=== PATIENT | male | born 1960 | race Caucasian/White ===

== ENCOUNTER 2016-11-05 16:29 | Inpatient (IN) | payer OTHER, MEDICARE ==
[~2016-11-05] VITALS: Ht 177.8 cm; Wt 90.7 kg
[~2016-11-05 16:29] MED LIST: ADVIL200 MG PO; ALPRAZOLAM2 M2 PO; CARISOPRODOL350 M1 PO; COLACE100 MG PO; DELTASONE20 MG PO; DEPAKOTE ER 25250 MG PO; DIVALPROEX SOD500 M2 PO; DOLOPHINE10 MG PO; ESCITALOPRAM OX10 MG PO; FLEXERIL10 MG PO; IBUPROFEN800 M1 PO; IBUPROFEN800 MG PO; KEFLEX500 MG PO; LYRICA75 M1 PO; METHADONE HCL10 M1 PO; MOBIC 15MG15 MG PO; MOTRIN 800MG T800 MG PO; MOTRIN600 MG PO; OXYCODONE HCL10 M2 PO; OXYCODONE HCL10 MG PO; OXYCODONE HCL5 M1 PO; OXYCODONE HYDRO10 M1 PO; OXYCODONE5 M1 PO; PERCOCET 325 MG1 TA2 PO; SOMA 350MG TAB350 MG PO; ULTRAM(MONOGRAP50 MG PO; XANAX2 M1 PO
--- NOTE | 2016-11-05 16:38 | NUR ---
Informed waiting has been performed.
--- NOTE | 2016-11-05 16:38 | NUR ---
TRIAGE: PT TO ER C/C "IT'S MAKING ME SUICIDAL. I'VE BEEN TO HOW MANY DOCTORS, NOBODY KNOWS WHAT IT IS. I'M JUST SICK OF IT!" HAS REDNESS AND PAIN BLE, ALSO COMPLAINS OF PAIN TO HEAD, NECK AND BACK. HAS HAD CHRONIC PAIN X MONTHS.
--- NOTE | 2016-11-05 16:49 | NUR ---
PATIENT AMBULATORY TO ROOM 13 AT THIS TIME. SECURITY AT BEDSIDE FOR WANDING.
--- NOTE | 2016-11-05 17:13 | ED PSYCHIATRIC COMPLAINT ---
History of Present Illness General Chief Complaint: Lower Extremity Problems Stated Complaint: SWELLING TO LOWER EXTREMITIES Source: patient, old records Exam Limitations: no limitations Vital Signs & Intake/Output Vital Signs & Intake/Output Vital Signs Date Time Temp Pulse Resp B/P Pulse O2 O2 Flow FiO2 Ox Delivery Rate 11/05 2320 95.5 69 16 128/77 11/05 1913 97.8 76 18 118/70 96 Room Air 11/05 1636 97.0 98 20 125/87 95 Room Air Allergies Coded Allergies: diphenhydramine (From BENADRYL) (HYPER PER PT SAYS IT FEELS LIKE BEGINNING OF A PANIC ATTACK 11/05/16) quetiapine (HYPERACTIVE, PER PT STATES HE FELT SUICIDAL 11/05/16) trazodone (WOKE UP FEELING DRUNK, HAD TO TAKE TO MUCH FOR SLEEP HELP 11/05/16) Reconcile Medications Alprazolam 2 MG TABLET 1 TAB PO 4 TIMES/DAY ANXIETY/PANIC ATTACKS (Reported) Carisoprodol 350 MG TABLET 1 TAB PO 4 TIMES/DAY MUSCLE SPASMS (Reported) Divalproex Sodium 500 MG TABLET.DR 1 TAB PO BID SEIZURES/PANIC ATTACKS ( Reported) Escitalopram Oxalate 10 MG TABLET 1 TAB PO DAILY MENTAL HEALTH (Reported) Ibuprofen 800 MG TABLET 1 TAB PO BID PAIN (Reported) Methadone Hydrochloride (Methadone HCl) 10 MG TABLET 1 TAB PO BID CHRONIC PAIN (Reported) Oxycodone HCl 10 MG TABLET 1 TAB PO 4 TIMES/DAY PAIN (Reported) Triage Note: TRIAGE: PT TO ER C/C "IT'S MAKING ME SUICIDAL. I'VE BEEN TO HOW MANY DOCTORS, NOBODY KNOWS WHAT IT IS. I'M JUST SICK OF IT!" HAS REDNESS AND PAIN BLE, ALSO COMPLAINS OF PAIN TO HEAD, NECK AND BACK. HAS HAD CHRONIC PAIN X MONTHS. Triage Nurses Notes Reviewed? yes HPI: 55-YEAR-OLD MALE WITH HISTORY OF POLYSUBSTANCE ABUSE, DEPRESSION, ANXIETY, CHRONIC PAIN, VASCULITIS, here with complaints of depression and suicidal thoughts. He states that these are stemming from his frustration with his chronic lower extremity rash and swelling. 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 He states his vasculitis is returning again over the last 3 days. This is causing him depression and anxiety and he wants to speak to a counselor about it. He has no fever or flulike illness he denies any drug or alcohol use. There is been no treatment thus far no modifying factors. (RIVER OMALLEY) Past History Travel History Traveled to [place] past 21 day No Medical History Any Pertinent Medical History? see below for history Neurological: delerium, seizure (also has some gait problems), TBI EENT: EYE SURGERY Cardiovascular: NONE Respiratory: NONE Gastrointestinal: pancreatitis Hepatic: hepatitis C Renal: NONE Musculoskeletal: chronic back pain, disk herniation, falls, fracture, BROKEN RIGHT FOOT hx skull and jaw fx's Psychiatric: alcohol dependence (in remission), anxiety, bipolar disease, chronic pain disorder, depression, opioid dependence (opioid pain management), substance abuse (hx alcohol and drug abuse), PANIC ATTACKS benzodiazepine abuse opiate pain management Endocrine: NONE Blood Disorders: NONE Cancer(s): NONE 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 History of MRSA: Yes History of VRE: No History of CDIFF: No Pneumonia Vaccine: 10/08/13 Influenza Vaccine: 08/17/16 Surgical History Surgical History: NECK, SKULL Psychosocial History Who do you live with Patient/Self Services at Home None What is your primary language Cameroonian Tobacco Use: Current Daily Use Daily Tobacco Use Amount/Type: => 5 Cigarettes daily ETOH Use: occasional use Illicit Drug Use: cocaine, heroin Family History Family History, If Any: No Known Family History. Hx Contributory? No (RIVER OMALLEY) Review of Systems Review of Systems Constitutional: Reports: see HPI. EENTM: Reports: no symptoms. Respiratory: Reports: no symptoms. Cardiovascular: Reports: no symptoms. GI: Reports: no symptoms. Genitourinary: Reports: no symptoms. Musculoskeletal: Reports: no symptoms. Skin: Reports: see HPI. Neurological/Psychological: Reports: see HPI. Hematologic/Endocrine: Reports: no symptoms. Immunologic/Allergic: Reports: no symptoms. All Other Systems: Reviewed and Negative (RIVER OMALLEY) Physical Exam Physical Exam General Appearance: well developed/nourished Neurological/Psychiatric: no motor/sensory deficits Comments: Well-developed well-nourished person in no acute distress HEENT: Normal EENT exam, extraocular motion intact, no nystagmus. Pupils equally round and reactive to light. Nose is atraumatic. External auditory canal and Tympanic membranes clear. Pharynx normal. No swelling or edema. Neck: Supple, no lymphadenopathy, normal range of motion without pain or tenderness Back: Nontender, no CVA tenderness. Full range of motion Cardiovascular: Regular rate and rhythms no murmurs, normal JVP Respiratory: Chest nontender. No respiratory distress. Breath sounds clear to auscultation bilaterally Abdomen: Soft, nontender nondistended, no appreciable organomegaly. Normal bowel sounds. No ascites Extremity: No edema, no calf tenderness to palpation, normal and equal pulses. Neuro: Alert oriented x3, motor sensory normal, cranial nerves II through XII grossly intact. Skin: Vasculitis, maculopapular rash to the bilateral lower extremities extending from the feet to the mid knee region bilaterally, tender to palpation mild swelling., skin is warm and dry. Psych: Depressed, memory and judgment is normal. Medical Clearance Statement * * no evidence of toxic ingestion SAD PERSONS SAD PERSONS Response Value Male Sex? yes 1 Age <19 or >45 years? yes 1 Depression/Hopelessness? yes 2 Previous Attempts/Psych Care yes 1 Single//? yes 1 Social Support? has no support 1 Stated Future Intent? yes 2 Total 9 SAD PERSONS Done? yes (JOSÉ SWANSON,RIVER) Progress Differential Diagnosis: dementia, drug intoxication, drug overdose, drug withdrawal, electrolyte abnormality, encephalitis, hypoglycemia, hypothyroidism, IC hem/mass/tumor, meningitis Plan of Care: Orders Procedure Date/time Status Regular Diet 11/06 B Active Patient Data - inpatient psych 11/05 2220 Active Admit to inpatient psych 11/05 2220 Active Vital Signs 11/05 2148 Active Inpt Psych Teach/Educate 11/05 2147 Active Nutritional Intake, Monitor 11/05 2147 Active Inpt Psych Auricular Acupunctu 11/05 2147 Active Admit to inpatient psych 11/05 2040 Active WESTERGREN SED RATE 11/05 1722 Complete DEPAKOTE LEVEL 11/05 1722 Complete ED CRISIS PSYCH CONSULT 11/05 1716 Active URINE DRUG SCREEN FOR ER ONLY 11/05 1704 Complete ETHANOL 11/05 1704 Complete COMPREHENSIVE METABOLIC PANEL 11/05 1704 Complete CBC WITHOUT DIFFERENTIAL 11/05 1704 Complete Intake & Output 11/05 1657 Complete Lab Add-on Test 11/05 UNK Active CIWA 11/05 UNK Active Activity/Ambulation 11/05 UNK Active Current Medications Sig/Phuong Start time Last Medication Dose Stop Time Status Admin Escitalopram Oxalate 10 MG DAILY 11/06 1000 UNVr (Lexapro) Methadone HCl 10 MG BID 11/06 1000 UNVr (Dolophine) Lorazepam 2 MG Q2 HRS NEEDED PRN 11/05 2229 UNVr (Ativan) Lorazepam 1 MG Q2 HRS NEEDED PRN 11/05 2229 UNVr (Ativan) Divalproex Sodium 500 MG BID 11/05 2223 UNVr (Depakote) Laboratory Tests 11/05/16 1822: Urine Opiates Screen > 4000.00 H, Methadone Screen 390 H, Barbiturate Screen 75, Ur Phencyclidine Scrn < 6.00, Amphetamines Screen < 100, U Benzodiazepines Scrn 113, Urine Cocaine Screen > 1000 H, Urine Cannabis Screen < 5.00 11/05/16 1722: Anion Gap 16, Estimated GFR > 60, BUN/Creatinine Ratio 15.6, Glucose 109 H, Calcium 8.8, Total Bilirubin 0.8, AST 80 H, ALT 81 H, Alkaline Phosphatase 67, Total Protein 7.5, Albumin 3.8, Globulin 3.7, Albumin/Globulin Ratio 1.0 L, CBC w Diff NO MAN DIFF REQ, RBC 4.10 L, MCV 88.4, MCH 29.5, RDW 15.5 H, MPV 8.2, Gran % 74.0, Lymphocytes % 16.0 L, Monocytes % 8.6, Eosinophils % 1.0, Basophils % 0.4, Absolute Granulocytes 3.9, Absolute Lymphocytes 0.8 L, Absolute Monocytes 0.5, Absolute Eosinophils 0.1, Absolute Basophils 0, PUBS MCHC 33.3, ESR Westergren 45 H, Valproic Acid < 10.0 L, Serum Alcohol < 10.0 11/05/16 1713: ESR Westergren Cancelled Comments: Patient is due for his methadone now, he takes 20 mg twice a day, did not have his evening dose yet, is also asking for something else for pain and his legs and I ordered ibuprofen 600 mg for him. We will obtain labs and crisis evaluation pt seen and evaluated by continuous mining machine operator, will be admitted due to bipolar disorder and depression. (RIVER OMALLEY) Departure Departure Disposition: STILL A PATIENT Condition: Stable Clinical Impression Primary Impression: Bipolar disorder, unspecified Qualifiers: Active/Remission status: currently active Current bipolar episode type: depressed Current episode severity: severe Psychotic features: without psychotic features Qualified Code: F31.4 - Bipolar disorder, current episode depressed, severe, without psychotic features Secondary Impressions: Chronic pain Qualifiers: Chronic pain type: other chronic pain Qualified Code: G89.29 - Other chronic pain Depression Qualifiers: Depression Type: major depressive disorder Major depression recurrence: recurrent Active/Remission status: currently active Major depression episode severity: severe Psychotic features: without psychotic features Qualified Code: F33.2 - Major depressive disorder, recurrent severe without psychotic features Vasculitis Referrals: PATIENT HAS NO PRIMARY CARE DR (PCP/Family) Departure Forms: Customer Survey General Discharge Information Psych Admission Note Psychiatric Admission: I have seen and evaluated RIVER GONGORA. I have also reviewed all the pertinent lab results and diagnostic results. RIVER GONGORA will be admitted to our inpatient Psychiatric unit for treatment and care. (RIVER OMALLEY) PA/UPSETTER HELPER Co-Sign Statement Statement: ED Attending supervision documentation- x I saw and evaluated the patient. I have also reviewed all the pertinent lab results and diagnostic results. I agree with the findings and the plan of care as documented in the PA's/UPSETTER HELPER's documentation. [] I have reviewed the ED Record and agree with the PA's/UPSETTER HELPER's documentation. [] Additions or exceptions (if any) to the PAs/UPSETTER HELPER's note and plan are summarized below: [] (ALEJANDRA FUCHS,HELEN)
--- NOTE | 2016-11-05 17:30 | NUR ---
PT MEDICATED PER EMAR, SITTING QUIETLY WATCHING TV IN ROOM 13. BLOOD SENT. PT INFORMED OF NEED FOR URINE SAMPLE PRIOR TO CRISIS EVAL AND GIVEN URINE CUP, PT STATING HE CANNOT PROVIDE A SAMPLE, WATER PITCHER PROVIDED. PT VOICING NO CONCERNS, SITTER AT BEDSIDE.
[2016-11-05 17:35] LABS: ABSOLUTE BASOPHIL COUNT 0 /CUMM (0.0-0.2); ABSOLUTE EOSINOPHIL COUNT 0.1 /CUMM (0.0-0.7); ABSOLUTE GRANULOCYTE CT 3.9 /CUMM (1.4-6.5); ABSOLUTE LYMPH COUNT 0.8 /CUMM (1.2-3.4); ABSOLUTE MONOCYTE COUNT 0.5 /CUMM (0.10-0.60); BASOPHIL % 0.4 % (0.0-2.0); HEMATOCRIT 36.3 % (42-52); MEAN CORPUSCULAR HGB 29.5 PG (27.0-31.0); MEAN CORPUSCULAR HGB CONC 33.3 G/DL (33.0-37.0); MEAN CORPUSCULAR VOLUME 88.4 FL (80.0-94.0); MEAN PLATELET VOLUME 8.2 FL (7.4-10.4); PLATELET COUNT 136 /CUMM (130-400); RBC DISTRIBUTION WIDTH 15.5 % (11.5-14.5); WHITE BLOOD CELL COUNT 5.3 /CUMM (4.8-10.8)
--- NOTE | 2016-11-05 18:49 | NUR ---
PATIENT MEDICATED WITH 2MG PO XANAX AT THIS TIME.
--- NOTE | 2016-11-05 19:06 | ED PSY CRISIS COLLATERAL NOTE ---
Collateral Note Collateral Note Family/Inform/[place] Contacts: Crisis attempted to reach pt's friend Juve Webster listed on facesheet at however the message stated the [employer] customer is not available to call back and try again. There was no option to leave a message.
--- NOTE | 2016-11-05 19:14 | NUR ---
SITTING QUIETLY STATES FEELS ALITTLE BETTER CALM CO-OPERATIVE NAD
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
[2016-11-05 23:20] VITALS: BP 128/77
--- NOTE | 2016-11-05 23:31 | NUR ---
PT ADMITTED TO [facility] FOR EXACERBATION OF DEPRESSION WITH SI. DURING INTERVIEW, PT REPORTED THAT HE STILL HAD SI, "BUT I WON'T DO ANYTHING HERE." "YEAH. I WANT HELP." "I SIGNED IN VOLUNTARILY." PT AGREED TO REPORT TO STAFF IF/WHEN THOUGHTS BECOME OVERWHELMING OR HE CONSIDERS A PLAN OF SELF HARM. PT PSYCH HX INCLUDES POLYSUBTANCE ABUSE/DEPENDENCE. PT REPORTED HE LAST USED "COCAINE" AND "SNIFFED HEROIN" YESTERDAY (11/04). PT REPORTED FEELING DEPRESSED, ANXIOUS, AND IRRITABLE. HE ADMITTED TO SOME MOOD LABILITY. HE DENIED HI AND ALL HALLUCINATIONS. PT PSYCH HX INCLUDES BIPOLAR DO AND POLYSUBSTANCE ABUSE/DEPENDENCE. PT C/O CHRONIC PAIN OF "BACK AND NECK." "10" ON SCALE OF 1-10. SPOKE WITH DR DAVIS, WHO SAID SHE WOULD ORDER PT'S MEDICATIONS BASED ON HOW PT SAID HE TAKES THEM AT HOME AND WOULD DISCUSS MED REGIMEN WITH PT TOMORROW. DR DAVSI HAS PLAN TO TAPER PT OFF XANAX. PT MED REGIMEN ALSO DISCUSSED WITH DR ALCALA WHO COMPLETED H&P. VSS.
[2016-11-06] VITALS (8 sets, daily range): BP systolic 118–135; BP diastolic 66–81
--- NOTE | 2016-11-06 00:03 | History & Physical ---
General Information and HPI MD Statement: I have seen and personally examined RIVER GONGORA and documented this H&P. The patient is a 55 year old M who presented with a patient stated chief complaint of [Depression, suicidal ideation]. Source of Information: patient, old records Exam Limitations: no limitations History of Present Illness: 55 yo M with h/o untreated Hep C, chronic back pain s/p multiple surgeries, bipolar disorder, seizure disorder is admitted to Inpatient psychiatry for depression and suicidal ideation which he attributes to his unrelenting chronic pain. He has been admitted multiple times in the past year for the same reason. Please refer to Psych notes for details. Patient states he was admitted to [facility] in Sep 2016 after he had a seizure episode while at the airport awaiting a flight to [place]. Apparently, he was intubated for respiratory failure. He follows Dr. Pena for pain management at [place] and gets his methadone from him. He reports being diagnosed with Vasculitis by many doctors but is not undergoing any treatment. He currently denies chest pain, dyspnea, palpitations, nausea, vomiting, abdominal pain, diarrhea or urinary symptoms. Allergies/Medications Allergies: Coded Allergies: diphenhydramine (From BENADRYL) (HYPER PER PT SAYS IT FEELS LIKE BEGINNING OF A PANIC ATTACK 11/05/16) quetiapine (HYPERACTIVE, PER PT STATES HE FELT SUICIDAL 11/05/16) trazodone (WOKE UP FEELING DRUNK, HAD TO TAKE TO MUCH FOR SLEEP HELP 11/05/16) Home Med list Alprazolam 2 MG TABLET 1 TAB PO 4 TIMES/DAY ANXIETY/PANIC ATTACKS (Reported) Carisoprodol 350 MG TABLET 1 TAB PO 4 TIMES/DAY MUSCLE SPASMS (Reported) Divalproex Sodium 500 MG TABLET.DR 1 TAB PO BID SEIZURES/PANIC ATTACKS ( Reported) Escitalopram Oxalate 10 MG TABLET 1 TAB PO DAILY MENTAL HEALTH (Reported) Ibuprofen 800 MG TABLET 1 TAB PO BID PAIN (Reported) Methadone Hydrochloride (Methadone HCl) 10 MG TABLET 1 TAB PO BID CHRONIC PAIN (Reported) Oxycodone HCl 10 MG TABLET 1 TAB PO 4 TIMES/DAY PAIN (Reported) Compliance With Home Meds: POOR Past History Travel History Traveled to [place] past 21 day No Medical History Neurological: migraine, seizure (also has some gait problems), SCIATICA TBI EENT: EYE SURGERY Cardiovascular: NONE Respiratory: NONE Gastrointestinal: pancreatitis Hepatic: hepatitis C Renal: NONE Musculoskeletal: chronic back pain, disk herniation, falls, fracture, BROKEN RIGHT FOOT hx skull and jaw fx's Psychiatric: alcohol dependence (in remission), anxiety, bipolar disease, chronic pain disorder, depression, opioid dependence (opioid pain management), substance abuse (hx alcohol and drug abuse), PANIC ATTACKS benzodiazepine abuse opiate pain management Endocrine: NONE Blood Disorders: NONE Cancer(s): NONE 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 History of MRSA: Yes History of VRE: No History of CDIFF: No Isolation History: Standard Pneumonia Vaccine: 10/08/13 Influenza Vaccine: 08/17/16 Surgical History Surgical History: NECK, SKULL Past Family/Social History Family History Relations & Conditions if any No Known Family History. Psychosocial History Where do you live? Home Who Do You Live With? self Services at Home: None Primary Language: Argentine Smoking Status: Current Everyday Smoker ETOH Use: occasional use Illicit Drug Use: cocaine, heroin Functional Ability ADLs Independent: dressing, eating, toileting, bathing. Ambulation: independent, walker IADLs Independent: shopping, housework, finances, food prep, telephone, transportation , medication admin. Review of Systems Review of Systems Constitutional: Denies: chills, fever, weakness. EENTM: Reports: no symptoms. Cardiovascular: Denies: chest pain, orthopena, palpitations. Respiratory: Denies: cough, short of breath, sputum production, wheezing. GI: Denies: abdominal pain, diarrhea, nausea, vomiting. Genitourinary: Reports: no symptoms. Musculoskeletal: Reports: no symptoms. Neurological/Psychological: Reports: see HPI. All Other Systems: Reviewed and Negative Exam & Diagnostic Data Last 24 Hrs of Vital Signs/I&O Vital Signs Date Time Temp Pulse Resp B/P Pulse O2 O2 Flow FiO2 Ox Delivery Rate 11/06 1950 96.7 76 122/66 11/06 1946 96.7 76 122/66 11/06 1606 68 118/74 11/06 1604 68 118/74 11/06 1218 68 135/70 11/06 1205 68 135/70 11/06 0757 96.6 64 130/81 11/06 0755 96.6 64 130/81 11/05 2320 95.5 69 16 128/77 Intake & Output 11/06 1600 11/06 0800 11/06 0000 Intake Total Output Total Balance Patient 200 lb Weight Physical Exam General Appearance Alert, Oriented X3, Cooperative, No Acute Distress Skin Rash noted to lower extremities consistent with vasculitis. HEENT EOMI, Mucous Membr. moist/pink Neck Supple Cardiovascular Regular Rate, Normal S1, Normal S2, No Murmurs Lungs Clear to Auscultation, Normal Air Movement Abdomen Normal Bowel Sounds, Soft, No Tenderness Neurological Exam Findings: Normal Speech, Normal Tone, Sensation Intact, Cranial Nerves 3 -12 NL, Reflexes 2+ Cranial Nerves II through XII: Grossly intact. Extremities No Edema, Normal Pulses Last 24 Hrs of Labs/Romero: Laboratory Tests 11/05 11/05 1822 1722 Chemistry Sodium (137 - 145 mmol/L) 144 Potassium (3.5 - 5.1 mmol/L) 4.2 Chloride (98 - 107 mmol/L) 103 Carbon Dioxide (22 - 30 mmol/L) 25 Anion Gap (5 - 16) 16 BUN (9 - 20 mg/dL) 14 Creatinine (0.7 - 1.2 mg/dL) 0.9 Estimated GFR (>60 ml/min) > 60 BUN/Creatinine Ratio (7 - 25 %) 15.6 Glucose (65 - 99 mg/dL) 109 H Calcium (8.4 - 10.2 mg/dL) 8.8 Total Bilirubin (0.2 - 1.3 mg/dL) 0.8 AST (17 - 59 U/L) 80 H ALT (21 - 72 U/L) 81 H Alkaline Phosphatase (< 127 U/L) 67 Total Protein (6.3 - 8.2 g/dL) 7.5 Albumin (3.5 - 5.0 g/dL) 3.8 Globulin (1.9 - 4.2 gm/dL) 3.7 Albumin/Globulin Ratio (1.1 - 2.2 %) 1.0 L Hematology CBC w Diff NO MAN DIFF REQ WBC (4.8 - 10.8 /CUMM) 5.3 RBC (4.70 - 6.10 /CUMM) 4.10 L Hgb (14.0 - 18.0 G/DL) 12.1 L Hct (42 - 52 %) 36.3 L MCV (80.0 - 94.0 FL) 88.4 MCH (27.0 - 31.0 PG) 29.5 RDW (11.5 - 14.5 %) 15.5 H Plt Count (130 - 400 /CUMM) 136 MPV (7.4 - 10.4 FL) 8.2 Gran % (42.2 - 75.2 %) 74.0 Lymphocytes % (20.5 - 51.1 %) 16.0 L Monocytes % (1.7 - 9.3 %) 8.6 Eosinophils % (0 - 5 %) 1.0 Basophils % (0.0 - 2.0 %) 0.4 Absolute Granulocytes (1.4 - 6.5 /CUMM) 3.9 Absolute Lymphocytes (1.2 - 3.4 /CUMM) 0.8 L Absolute Monocytes (0.10 - 0.60 /CUMM) 0.5 Absolute Eosinophils (0.0 - 0.7 /CUMM) 0.1 Absolute Basophils (0.0 - 0.2 /CUMM) 0 PUBS MCHC (33.0 - 37.0 G/DL) 33.3 ESR Westergren (0 - 10 MM) 45 H Toxicology Urine Opiates Screen (>2000 NG/ML) > 4000.00 H Methadone Screen (>300 NG/ML) 390 H Barbiturate Screen (>200 NG/ML) 75 Valproic Acid (50 - 120 ug/mL) < 10.0 L Ur Phencyclidine Scrn (>25 NG/ML) < 6.00 Amphetamines Screen (>1000 NG/ML) < 100 U Benzodiazepines Scrn (>200 NG/ML) 113 Urine Cocaine Screen (>300 NG/ML) > 1000 H Urine Cannabis Screen (>50 NG/ML) < 5.00 Serum Alcohol (<10 MG/DL) < 10.0 11/05 1713 Hematology ESR Westergren Cancelled Diagnostic Data EKG Results -- CXR Results -- Assessment/Plan Assessment: 55 yo M with h/o Hep C, chronic pain syndrome, is admitted to Inpatient psychiatry for depression and suicidal ideation. 1. Plan per Psych team for management of depression, drug abuse, bipolar disorder and SI. 2. Smoking cessation counseling, nicotine patch. 3. Vasculitis. Patient needs to follow up with Dermatology as outpatient. 4. Transaminitis likely related to his previous Hep C infection. 5. Seizure disorder. Continue depakote. 6. Chronic back pain. Methadone maintenance. DVT prophylaxis - low risk, early ambulation. As Ranked By This Provider Problem List: 1. CHRONIC PAIN 2. Chronic hepatitis C 3. Suicidal ideation 4. Major depression, recurrent Miscellaneous Miscellaneous Documentation Attending Case Discussed With: CASH FUCHS,ROBERTO CARLOS Primary Care Physician: PATIENT HAS NO PRIMARY CARE DR Patient sees these Specialists -- Level of Patient Care: CATIE Hansen Attending Review Statement Attending Statement Attending MD Statement: examined this patient
--- NOTE | 2016-11-06 00:03 | Admission Certification ---
Admission Certification Certification Statement - As attending physician, I certify that at the time of - admission, based on clinical presentation, severity of - symptoms, need for further diagnostic testing and - therapeutic interventions, and risk of adverse outcomes - without in-hospital treatment, in my clinical assessment, - this patient requires an acute hospital stay for a minimum - of two nights or longer. I have also considered psychsocial - factors such as support system, advanced age, financial - issues, cognitive issues, and failed out-patient treatments, - past re-admission history, safety of patient, and lack of - compliance as applicable. Specific rationale supporting this admission is: Depression and suicidal ideation.
--- NOTE | 2016-11-06 06:53 | NUR ---
PATIENT SLEPT 1/2 OF NIGHT OR SO, REPOTING PAIN; PRN OXYCODONE GIVEN AT 2330 AND 0530.
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
--- NOTE | 2016-11-06 13:50 | NUR ---
PT IS COMPLIANT AND COOPERATIVE. MOOD IS STABLE WITH A CONSTRICTED AFFECT. PT DENIES SI AT THIS TIME, C/O CHRONIC PAIN. PT GAIT IS STEADY WITHOUT ASSISTANCE FROM WALKER. PT IS PRESENT IN THE COMMUNITY AND INTERACTING WELL WITH PEERS AND STAFF. PT IS ATTENDING GROUPS. VITALS ARE STABLE, APPETITE IS GOOD.
--- NOTE | 2016-11-06 20:52 | NUR ---
Pt is out in the unit c/o pain asking for more meds, compliant and cooperative no behavioral issues noted during the day. Vital signs are stable no scoring on his ciwa. Will continue to monitor the pt overnight.
[2016-11-07] VITALS (8 sets, daily range): BP systolic 124–143; BP diastolic 78–88
--- NOTE | 2016-11-07 11:44 | SOCIAL WORKER TX PLAN PSYCH ---
Treatment Plan - Please Document: - Evidence that there is ongoing collaboration between - the patient and the interdisciplinary team, - including the patient's active participation and - responsibility for engaging in the treatment regimen, - and that the treatment plan is individualized and - relevant to the patient's conditions. - Treatment plan should reflect documentation indicating - that all active therapeutic efforts are included. Strengths/Capabilities: pt is able to verbalize his living enviroment is not the best as he has access to cocaine so it's easy to use. Pt is able to verbalize needing help. Physical Limitations (Interventions): Chronic back and neck pain Patient Identified Trmt Goals: "To stop these thoughts I am having." Discharge Plan: OP Problem/Goals #1 Problem #1: suicidal ideation Goal (Short Term): Today I will attend 2 groups Today I will identify 2 stressors Today I will identify 2 positive supports Today I will work on recognizing 3 emotions I am feeling Goal (Residential): Be free of suicidal thoughts/attempts Develop 3 coping skills to deal with depression Identify 3 positive support systems to call in crisis Develop a crisis plan with 3 [place] people Identify 2 positive traits per week about myself Identify 2 things I have to look forward to Identify 2 positive people in my life and 1 thing I appreciate about them Interventions: Learn ways to manage depressive symptoms accordingly and identify positive supports to manage life stressors and mood fluctuations. Modalities: Encourage groups, education on depression, provide CBT treatment, family meeting. Problem/Goals #2 Problem #2: homicidal ideation Goal (Short Term): Today I will attend 2 groups Today I will identify 2 stressors Today I will identify 2 positive supports Today I will work on recognizing 3 emotions I am feeling Goal (Residential): Be free of homicidal thoughts/attempts Develop 3 coping skills to deal with my anger Identify 3 positive support systems to call in crisis Develop a crisis plan with 3 [place] people Identify 2 positive traits per week about myself Identify 2 things I have to look forward to Identify 3 negative consequences of acting on my thoughts Interventions: Learn ways to manage depressive symptoms accordingly and identify positive supports to manage life stressors and mood fluctuations. Modalities: Encourage groups, education on depression, provide CBT treatment, family meeting. Problem/Goals #3 Problem #3: stimulant abuse Goal (Short Term): Be free of drug/alcohol use/abuse Avoid people, places and situations where temptation might be overwhelming Learn five triggers for alcohol & drug use Goal (Residential): 1) Refrain from all substnace use 2) Identify 3 triggers for use 3) Identify 3 sober supports 4) Identify 3 coping skills Interventions: Learn ways to manage cravings to use substances accordingly and identify coping skills to prevent relapse from occurring due to anxious/depressed feelings. Modalities: Encourage groups, education on addiction, provide CBT treatment, family meeting. DSM5/PS Stressors/Medical Prob Diagnosis' (DSM 5, Stressors, Medical): F31.9 Unspecified Bipolar Disorder, MRE Depressed F14.20 Cocaine Use Disorder, Severe F11.20 Opiod Use Disorder, on maintance therapy F13.20 Sedative, Hypnotic or Anxiolytic- Related Disorder, Severe F17.200 Tobacco- Use Disorder, Severe Chronic Pain Disorder Hepatitis C 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 Treatment Team - Responsibilities of members of the treatment team include: - Medication Management- MD or LAUNDRY SUPERINTENDENT - Medication Administration and Monitoring- Nurse - Group Therapy- Occupational Therapist - 1:1 Therapy,Disch Planning,family involvement-Solar Photovoltaic Designer
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
--- NOTE | 2016-11-07 14:27 | NUR ---
Pt was visible in the milieu today. he attended planning meeting, and the goal was made "to open up about his treatment". Pt shared he has come here too much, and is not honest with the social worker aide about whats going on. This time he wants to be more open about his treatment. Pt refused to eat his lunch after being blamed for an argument with another resident. Pt and resident made amends but pt still refuses to eat. Pt has been in some groups but not all of them today. According to the other MHW on shift, Pt had thoughts of harm this morning. It was reported by the other MHW, and shared with the charge nurse.
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
--- NOTE | 2016-11-07 22:00 | NUR ---
PT IS VISIBLE ON UNIT, INTERACTING WITH PEERS AND STAFF. PT ATTENDED WRAP UP MEETING AND PARTICIPATED. PT COMPLAINING OF CONSTANT PAIN. PT ALSO REPORTED SI BUT DENIED ANY PLAN AND/OR INTENT TO HARM SELF WHILE ON UNIT. PT HAS A STABLE MOOD AND FULL RANGE AFFECT.
[2016-11-08] VITALS (8 sets, daily range): BP systolic 134–147; BP diastolic 82–95
--- NOTE | 2016-11-08 05:27 | NUR ---
AWAKE ON AND OFF DURING THE SHIFT C/O PAIN MED WITH ROXICODONE AND IBUPROFEN ORDERED.
--- NOTE | 2016-11-08 11:52 | SOCIAL WORKER PROG NOTE PSYCH ---
Social Work Progress Note Progress Note Patient continues to endorse +SI today. He denies HI at present and reports only thoughts about hurting himself but no plan or intent while he is in the hospital. Patient has been attending groups on the unit and contated probation today to inform his PO that he was admitted to the hospital. He signed THEODORA for PO and I sent letter. Patient continues to report his desire to attend AA meetings post discharge from the hospital and plans to ask at this evenings AA for help in the community to get to and from meetings. Patient continues to express his desire for sobriety and build a positive support network in the community.
--- NOTE | 2016-11-08 13:30 | NUR ---
PT IS OUT IN COMMUNITY INTERACTING WITH STAFF AND PEERS. PT IS VERY SOICAL AT NURSES STATION CHATTING WITH STAFF. PT MOOD IS STABLE WTIH A FULL RANGE AFFECT. PT IS ACTIVE IN GROUPS. PT DENIES SI THOUGHTS AT THIS TIME. NO COMPLIANTS OFFERED
--- NOTE | 2016-11-08 18:45 | CP SOUTH PROGRESS NOTE PSYCH ---
Psych (Inpt) Progress Note Progress Note Progress Note: I discussed this patient's progress to date, current mental status, treatment process in the context of the treatment plan, and discharge planning with staff/ team in the daily morning inpatient team meeting. I also met with the patient myself in individual session. A total of 25 minutes was spent with the patient with more than 50% spent in counseling and/or coordination of care. SUBJECTIVE: " I'm a little suicidal. I know I'm not going to do it today." OBJECTIVE: Current Medications Sig/Phuong Start time Last Medication Dose Route Stop Time Status Admin Alprazolam 2 MG 4 TIMES/DAY 11/05 2223 AC 11/08 PO 11/12 222 1753 Carisoprodol 350 MG 4 TIMES/DAY 11/05 PO 1753 Divalproex Sodium 500 MG 0800,11/07 PO 0747 Escitalopram Oxalate 20 MG 0800 11/08 0800 AC 11/08 PO 0746 Ibuprofen 600 MG Q8P PRN 11/06 1330 AC 11/08 PO 1614 Lorazepam 2 MG Q2 HRS NEEDED PRN 11/05 2230 AC PO Lorazepam 1 MG Q2 HRS NEEDED PRN 11/05 2230 AC PO Methadone HCl 10 MG 0800,11/07 PO 0747 Nicotine 21 MG DAILY 11/06 1049 11/08 TOP 0746 Oxycodone HCl 10 MG Q6 PRN 11/06 1319 AC 11/08 PO 1451 Vital Signs Date Time Temp Pulse Resp B/P Pulse O2 O2 Flow FiO2 Ox Delivery Rate 11/08 1629 64 143/83 11/08 1600 64 143/83 11/08 1223 59 147/82 11/08 1211 59 142/82 11/08 0740 96.5 68 141/95 11/08 0737 96.5 68 141/95 11/07 1953 97.2 85 143/88 11/07 1950 97.2 85 143/ ASSESSMENT: Patient presents as calm and cooperative. States he is worried about his probation, as he has missed an appointment. States he will call PO today. States he needs to find a new pain mgmt doctor. States he has an appointment to see psychiatrist Dr. Busby next Monday at 9am. Tolerating his medications well, to good effect, without complaint. He has been out in the community. Depression: /; Anxiety: / (with 10 the worst.) Denies homicidal ideation, auditory hallucinations, visual hallucinations, paranoid ideation. Contracts for safety while on the unit. Sleep was OK last night "I slept for three hours straight, which is good for me. " Appetite is low. Speech is well articulated, goal-directed, average in rate, volume and tone. The patient understands the risks/benefits/side effects of the medication and is agreeable to continue taking them. PLAN: Depakote level tomorrow. Continue with current management as patient is improving. Continue to provide support and encouragement.
--- NOTE | 2016-11-08 22:52 | NUR ---
PT IS VISIBLE ON UNIT, SOCIALIZING WITH PEERS. PT IS COMPLAINING OF A LOT OF PAIN. PT GROWS IRRTIABLE WHEN REQUESTS ARE NOT TENDED TO RIGHT AWAY AND IS MED SEEKING. ATTENDED WRAP UP AND WAS PASSIVE. PT HAS A IRRITABLE MOOD AND AFFECT.
[2016-11-09] VITALS (8 sets, daily range): BP systolic 134–141; BP diastolic 78–94
--- NOTE | 2016-11-09 00:46 | NUR ---
2000 PT. C/O OF RASH LOCATED ON BACK BILATERAL FLANK AREAS, LEGS, AND FEW AREAS ON STOMACH. REPORTED TO DR. CHINCHILLA AND WAS ASSESSED. AWAITING ORDERS.
--- NOTE | 2016-11-09 00:48 | Event Note ---
Event Note Event Note: I was asked to take a look at Mr. Granados's rash on b/l lower extremities and back. 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 He never underwent any treatment. I evaluated him, he c/o some itching and pain. He kept asking for the soma and oxycodone to be given at the same time to help with pain. The rash on his lower back appears more erythematous ?irritated, but no weeping lesions. I have prescribed triamcinolone topical cream for now.
--- NOTE | 2016-11-09 00:49 | NUR ---
EMMETT CHATTERJEE ORDERED AND APPLIED.
--- NOTE | 2016-11-09 04:59 | NUR ---
SLEPT ON AND OFF AWAKE @0130 requesting ibuprofen for h/a med as ordered then sat in lounge. 0300 requesting roxicodone for pain back and legs and med. 0400 sleeping soundly.
--- NOTE | 2016-11-09 13:19 | PN- Att Addend ---
Attending Addendum Attending Brief Note I was called to see the patient as he was having a rash on his body. Last night he was seen by the hospitalist and Kenalog was prescribed. Patient claims that that made it worse. Reportedly he has been worked up in the past and had a skin biopsy done at [facility]. Vital Signs Date Time Temp Pulse Resp B/P Pulse O2 O2 Flow FiO2 Ox Delivery Rate 11/09 1230 61 136/78 11/09 1227 61 136/78 11/09 0754 62 141/94 11/09 0746 96.8 62 141/94 11/08 1941 97.2 95 134/82 11/08 1938 97.2 95 134/82 11/08 1629 64 143/83 11/08 1600 64 143/83 on exam; there is maculopapular rash on b/l lwer extremities and also lower back. It is painful according to the patient. Laboratory Tests 11/09 0622 Toxicology Valproic Acid (50 - 120 ug/mL) 56.1 A/p; 55-year-old male with reportedly vasculitic rash as he had said that in the past he was diagnosed with a vasculitic rash. I discontinued his Kenalog as he reports worsening of the rash. Would recommend getting the reports from the [facility] about his skin biopsy. Patient will need to see a team leader/research psychologist.
--- NOTE | 2016-11-09 14:49 | NUR ---
PT IS STABLE WITH CONSTRICTED AND IRRITABLE AFFECT. PT OFTEN WANDERS THE UNIT AND IS VERY SOMATIC COMPLAINING OF "UNBEARABLE PAIN". PT FEELS THAT [facility] DOES NOT "UNDERSTAND HOW TO PROPERLY MEDICATE ME". PT IS ATTENDING GROUPS AND CAN BE APPROPRIATE AT TIMES. DOES NOT REQUIRE MUCH REDIRECTION BUT PINES FOR ATTENTION FROM STAFF AND OFTEN MALINGERS AROUND NURSES STATION. VS ARE STABLE AND DENIES ANY SI/HI TO THIS MHW.
--- NOTE | 2016-11-09 14:50 | CP SOUTH PROGRESS NOTE PSYCH ---
Psych (Inpt) Progress Note Progress Note Progress Note: I discussed this patient's progress to date, current mental status, treatment process in the context of the treatment plan, and discharge planning with staff/ team in the daily morning inpatient team meeting. I also met with the patient myself in individual session. A total of 25 minutes was spent with the patient with more than 50% spent in counseling and/or coordination of care. SUBJECTIVE: "I'm trying to slow my role. I'm still depressed, I'm in a bad mood." OBJECTIVE: Current Medications Sig/Phuong Start time Last Medication Dose Route Stop Time Status Admin Alprazolam 1.5 MG 0800,11/10 08 AC PO 11/11 220 Alprazolam 2 MG 0800,11/09 220 AC PO 11/09 220 Alprazolam 1.5 MG 1300,11/09 1300 AC 11/09 PO 11/10 1701 1401 Alprazolam 2 MG 4 TIMES/DAY 11/05 2224 DC 11/09 PO 11/12 2223 0739 Carisoprodol 350 MG 4 TIMES/DAY 11/05 2224 AC 11/09 PO 1401 Divalproex Sodium 500 MG 0800,11/07 AC 11/09 PO 0736 Escitalopram Oxalate 20 MG 0800 11/08 0800 AC 11/09 PO 0736 Ibuprofen 600 MG .STK-MED ONE 11/09 0142 DC PO 11/09 0143 Ibuprofen 600 MG .STK-MED ONE 11/08 1608 DC PO 11/08 1609 Ibuprofen 600 MG Q8P PRN 11/06 1330 AC 11/09 PO 1019 Lorazepam 2 MG Q2 HRS NEEDED PRN 11/05 2230 AC PO Lorazepam 1 MG Q2 HRS NEEDED PRN 11/05 2230 AC PO Methadone HCl 10 MG 0800,11/07 AC 11/09 PO 0740 Nicotine 21 MG DAILY 11/06 1049 AC 11/09 TOP 1011 Oxycodone HCl 10 MG Q6 PRN 11/06 1319 AC 11/09 PO 0905 Triamcinolone 1 SAMSON BID 11/08 2305 DC 11/09 Acetonide TOP 1011 Laboratory Tests 11/09 0622 Toxicology Valproic Acid (50 - 120 ug/mL) 56.1 Vital Signs Date Time Temp Pulse Resp B/P Pulse O2 O2 Flow FiO2 Ox Delivery Rate 11/09 1230 61 136/78 11/09 1227 61 136/78 11/09 0754 62 141/94 11/09 0746 96.8 62 141/94 11/08 1941 97.2 95 134/82 11/08 1938 97.2 95 134/82 11/08 1629 64 143/83 11/08 1600 64 143/83 ASSESSMENT: Patient reports slight improvement in his mood, depression, anxiety and suicidal ideation. Last night he noticed a red maculopapular rash over many parts of his body, patient was evaluated by Dr Villarreal who prescribed Kenalog cream. Patient complained that the cream was not helpful, and he was evaluated today by Dr. Casper, who discontinued the Kenalog. Please refer to their notes for additional information. He states his depression is a little bit better, his anxiety is okay because he takes Xanax. Today I informed him that because he is taking methadone we need to start tapering down his Xanax. We will plan on decreasing Xanax by 1 mg daily. The patient was visibly and verbally upset. Depression:6-8/10; Anxiety: "OK on Xanax." (with 10 the worst.) Denies homicidal ideation, auditory hallucinations, visual hallucinations, paranoid ideation. Patient reports that he continues to have suicidal ideation, however he is able to contract for safety while on the unit. Speech is well articulated, goal-directed, average in rate, volume and tone. Patient is irritable but cooperative. Alert and oriented 3. Logical. The patient understands the risks/benefits/side effects of the medication and is agreeable to continue taking them. PLAN: Decrease Xanax dose by 1mg total daily. Patient states he has a psychiatrist appointment with psychiatrist Dr. Busby next Monday; pain management appointment with Dr. Abdoulaye Nugent on November 22; and is seen by Dr. Zamora for GI, states he will be started on Harvoni for Hep C. Continue with current management as patient is improving. Continue to provide support and encouragement.
--- NOTE | 2016-11-09 15:28 | SOCIAL WORKER PROG NOTE PSYCH ---
Social Work Progress Note Progress Note Patient continues to report feeling depressed and +SI with no plan or intent while in the hospital. Patient continues to perseverate about medication and being out of medication until his next appointment with Dr. Busby and . Patient is concerned of being discharged without enough medication to get to his appointments and is planning to go to the ED to seek medication for the duration if discharged in near future. Patients SI appears to be revolved around his dependence for opiates and benzodiazepines and fear that if he is not in the hospital then he will be without medication. Patient reports that he wants to attend AA in the community once discharged but appears to have limited insight into his dependence on the medications prescribed and the impact that it is having on the cycle of returning to the hospital.
--- NOTE | 2016-11-09 23:05 | NUR ---
PT IRRITABLE. CONTINUES TO PERSEVERATE ON PAIN AND CHRONIC RASH. PT MAKING DEROGATORY STATEMENTS ABOUT HOSPITAL STAFF. PT EXPRESSED DISSATISFACTION OVER MED REGIMEN AND MANAGEMENT OF RASH AND PAIN. THIS DESPITE FREQUENT ATTEMPTS TO ADDRESS ISSUES/COMPLAINTS, EDUCATE AND ALLOW FOR VERBALIZATION OF THOUGHTS AND FEELINGS. AT APPROX 2200 WHILE PT IN BATHROOM, MED NURSE ARIELA SMELLED SMOKE IN HALLWAY NEAR BATHROOM WHICH WAS THEN SMELLED BY [facility] AND CHARGE NURSE JENNIFER. STAFF WAITED FOR PT TO COME OUT. HE DENIED SMOKING. IT WAS NOTED THAT FACE PLATE OF EMERGENCY CALL PULL WAS TURNED AND THERE WAS HOLE IN WALL, WHICH HAD NOT BEEN NOTED EARLIER. WET TOWEL OVER DRAIN ALSO NOTED. PT CLOTHES/ROOM CHECKED. PT AGREED WITHOUT RESISTANCE TO CHANGE INTO SCRUBS. SECURITY ALSO NOTIFIED AND PROCESS REPEATED. NO CONTRABAND FOUND.
--- NOTE | 2016-11-10 04:16 | NUR ---
Patient awake every 3-4 hours. C/O pain, Motrin 600mg given at 1:30am and Oxycodone 10mg given at 4am with possitive effect. No other issues.
[2016-11-10 07:42] VITALS: BP 146/81
[2016-11-10 07:52] VITALS: BP 146/81
--- NOTE | 2016-11-10 08:29 | NUR ---
11/10/16 0830 SPOKE C PT REGARDING SI STATEMENT. PT DENIES ACTIVE SUICIDAL IDEATION NOW. PT AGREES TO BE SAFE ON THE UNIT. PT EXPRESSED ANGER AND FRUSTRATION AT CHANGES IN MEDICATION REGIMENT. PT DOES NOT REQUIRE 1:1 AT THIS TIME.
[2016-11-10 11:48] VITALS: BP 130/77
[2016-11-10 11:56] VITALS: BP 130/77
--- NOTE | 2016-11-10 12:45 | CP SOUTH PROGRESS NOTE PSYCH ---
Psych (Inpt) Progress Note Progress Note Progress Note: I discussed this patient's progress to date, current mental status, treatment process in the context of the treatment plan, and discharge planning with staff/ team in the daily morning inpatient team meeting. I also met with the patient myself in individual session. A total of 15 minutes was spent with the patient with more than 50% spent in counseling and/or coordination of care. SUBJECTIVE: "I'm still a little suicidal, but it's getting better. I got a good call from my brother yesterday." OBJECTIVE: Current Medications Sig/Phuong Start time Last Medication Dose Route Stop Time Status Admin Alprazolam 1 MG 1300,11/10 1300 AC PO 11/17 1259 Alprazolam 1.5 MG 0800,11/10 0800 AC 11/10 PO 11/11 220 0757 Alprazolam 2 MG 0800,11/09 2200 DC 11/09 PO 11/09 2201 2126 Alprazolam 1.5 MG 1300,11/09 1300 DC 11/09 PO 11/10 1701 1602 Carisoprodol 350 MG 4 TIMES/DAY 11/05 2224 AC 11/10 PO 0758 Divalproex Sodium 500 MG 0800,11/07 AC 11/10 PO 0757 Escitalopram Oxalate 20 MG 0800 11/08 0800 AC 11/10 PO 0757 Ibuprofen 600 MG .STK-MED ONE 11/10 0123 DC PO 11/10 0124 Ibuprofen 600 MG .STK-MED ONE 11/09 1754 DC PO 11/09 1755 Ibuprofen 600 MG Q8P PRN 11/06 1330 11/10 PO 0937 Lorazepam 2 MG Q2 HRS NEEDED PRN 11/05 2230 AC PO Lorazepam 1 MG Q2 HRS NEEDED PRN 11/05 2230 AC PO Methadone HCl 10 MG 0800,11/07 AC 11/10 PO 0759 Nicotine 21 MG DAILY 11/06 1049 11/10 TOP 0939 Oxycodone HCl 10 MG Q6 PRN 11/06 1319 11/10 PO 0937 Vital Signs Date Time Temp Pulse Resp B/P Pulse O2 O2 Flow FiO2 Ox Delivery Rate 11/10 1156 66 130/77 11/10 1148 66 130/77 11/10 0752 97.6 64 146/81 11/10 0742 97.6 64 146/81 11/09 2023 97.4 70 134/90 11/09 2017 97.4 70 134/90 11/09 1609 66 139/80 11/09 1554 66 139/80 11/09 1230 61 136/78 11/09 1227 61 [id number] ASSESSMENT: Patient reports slow improvement, however still appears irritable. He is unhappy that Xanax is being tapered down. States he is trying to get in touch with his pain management doctor to get a earlier appointment. He currently will see his psychiatrist next Monday at 9 AM, and has an appointment with pain management at the end of the month. Patient states that if he can get a pain management appointment for tomorrow, he would like to be discharged in order to make that appointment. When I asked him if he thought he was safe to leave the hospital, stated "I don't know." Depression:7 /10; Anxiety: 7/10 (with 10 the worst.) Denies homicidal ideation, auditory hallucinations, visual hallucinations, paranoid ideation. Patient continues to report suicidal ideation, however getting better. He is able to contract for safety while on the unit. He reports that he does not sleep well at night, but states "I never sleep okay. " Denies nightmares. Reports that his appetite is poor. Speech is well articulated, goal-directed, average in rate, volume and tone. The patient understands the risks/benefits/side effects of the medication and is agreeable to continue taking them. PLAN: Continue to taper down Xanax. Continue with other current management as patient is improving. Continue to provide support and encouragement.
--- NOTE | 2016-11-10 14:02 | NUR ---
PT IS COMPLIANT AND COOPERATIVE. MOOD IS STABLE WITH A CONSTRICTED AFFECT; PT IS IRRITABLE AT TIMES. PT EXPRESSED PASSIVE SI DURING 0800 VITALS- HAS NO PLAN AND STATED HE WILL NOT HARM SELF WHILE IN HOSPITAL. PT IS PRESENT IN THE COMMUNITY AND INTERACTING WITH PEERS AND STAFF. PT IS ATTENDING SOME GROUPS. VITALS ARE STABLE, APPETITE IS GOOD.
--- NOTE | 2016-11-10 14:03 | NUR ---
PT IS MED FOCUSED AND IS IRRITABLE TODAY BECAUSE HIS MEDS ARE BEING TAPERED. HE DOES NOT AGREE WITH THIS PLAN. PT IS EASILY IRRITATED AND HE WILL VERY QUICKLY STATE HE IS SUICIDAL WHEN HE DOES NOT GET WHAT HE WANTS.WITH CONVERSATION WITH PT HE ADMITS THAT HE IS SAFE IN THE HOSPITAL AND IS FRUSTRATED WITH THE MED CHANGES
[2016-11-10 15:47] VITALS: BP 143/96
--- NOTE | 2016-11-10 15:50 | SOCIAL WORKER PROG NOTE PSYCH ---
Social Work Progress Note Progress Note Patient shared his frustration with his continued taper off of Xanax. Patient is irritable and has been refusing to attend groups and partake in treatment today. Patient spoke with his OP provider, Dr. Busby, who agreed to write him a prescription before his upcoming appointment next Monday. Patient verified with his pharmacy and reports that there is a prescription for Xanax, Depakote and Lexapro from ready for him to scrap picker at the pharmacy. Patient is denying suicidal or homicidal thoughts at present and is requesting for discharge from the hospital tomorrow. Patient encoruaged to attend groups throughout the remainder of the day and continue to focus on the reasons he initially presented to the hospital. We plan to discuss discharge in the AM with patient.
[2016-11-10 20:37] VITALS: BP 137/89
--- NOTE | 2016-11-10 22:10 | NUR ---
PT IS CALM, COOPERATIVE WITH STAFF AND PEERS, AND COMPLIANT WITH UNIT RULES. PT IS LETHARGIC, AT TIMES SLEEPING IN [place]IE[place]. PT IS SOCIALIZING WITH PEERS AND STAFF THROUGHOUT SHIFT. PT MOOD IS STABLE, AFFECT IS EUTHYMIC, COMMUNICATION IS NORMAL, AND APPETITE IS NORMAL. PT DENIES SI AT THIS TIME.
[2016-11-11 07:32] VITALS: BP 134/94
[2016-11-11 07:47] VITALS: BP 134/94
--- NOTE | 2016-11-11 10:38 | NUR ---
PT IS SCHEDULED FOR D/C TO [facility] [place] TODAY. HE WILL FOLLOW UP WITH DR LUCERO. HE REPORTS AND DEMONSTRATES IMPROVEMENT IN MOOD AND ABILITY TO FUNCTION. HE DENIES ANY THOUGHTS OF SUICIDE OR SELF HARM. HE VERBALIZES A GOOD UNDERSTANDING OF HIS MED REGIME AND TREATMENT PLAN. PT IS GIVEN EDUCATION ON DEPRESSION AND SUICIDE PREVENTION
--- NOTE | 2016-11-11 10:42 | DISCHARGE SUMMARY REPORT-PSYCH ---
Visit Information Visit Dates/Diagnosis' Admission Date: 11/05/16 Discharge Date: 11/11/16 Reason for Admission: Patient is a 55 year old male who presents today in the ED feeling depressed and suicidal due to chronic physical pain. Psy Discharge Primary Diag: Unspecified Bipolar d/o, mre depressed. Psy Discharge Secondary Diag: Cocaine Use d/o; opioid dependence; Sedative/ hypnotic dependence; chronic pain d/o; Hepatitis C. Hospital Course Significant Lab Findings: Lab ALT 81 U/L H 11/05/16 1722 AST 80 U/L H 11/05/16 1722 ESR Westergren 45 MM H 11/05/16 1722 Hct 36.3 % L 11/05/16 1722 Hgb 12.1 G/DL L 11/05/16 1722 RBC 4.10 /CUMM L 11/05/16 1722 Hepatitis C Antibody REACTIVE H 12/24/15 0650 Methadone Screen 390 NG/ML H 11/05/16 1822 Urine Cocaine Screen > 1000 NG/ML H 11/05/16 1822 Urine Opiates Screen > 4000.00 NG/ML H 11/05/16 1822 Valproic Acid 56.1 ug/mL 11/09/16 0622 Course Complications: The patient was seen by Dr. Villarreal and Dr. Casper for a maculopapular rash on b/l lower extremities and lower back. He was prescribed Kenalog cream, which was then discontinued. Please refer to their notes for further information. Consultations: The patient was seen for an admission history and physical by Dr. Villarreal. Please refer to the H&P for further information. Allergies: Coded Allergies: diphenhydramine (From BENADRYL) (HYPER PER PT SAYS IT FEELS LIKE BEGINNING OF A PANIC ATTACK 11/05/16) quetiapine (HYPERACTIVE, PER PT STATES HE FELT SUICIDAL 11/05/16) trazodone (WOKE UP FEELING DRUNK, HAD TO TAKE TO MUCH FOR SLEEP HELP 11/05/16) Hospital Course/TX Response: The patient was monitored on the unit for safety, depression, and suicidal ideation. He participated in multi-modal treatments on the unit. He was continued on his outpatient medications of Lexapro for depression and anxiety, depakote for mood stability, and xanax for anxiety. In addition he was continued on his pain medications received in outpatient pain management of methadone, Soma, Roxicodone and Ibuprofen. During his stay, we discussed his abnormal lab results. He states that he is being seen by casing tier Dr. Zamora, and will soon start Li , for Hep C. The patient declined to ask anyone in for a family meeting, and declined to sign disclosure waivers so that we could speak with his outpatient physicians, or his policy officer. Today, the day of discharge he stated, "I saw a miracle last night. The AA kinsey who was here last night, lives down the street from me, and he said he'll take me to AA meetings every day." Patient reports that he does not feel suicidal, states that he feels safe and ready for discharge. He has arranged to see his pain management doctor, Dr. Nugent, this afternoon. He has arranged to see his psychiatrist, Dr. Busby next Monday at 9am. Patient states that Dr. Busby has called in prescriptions for Xanax, Depakote, and Lexapro. Patient states he does not need prescriptions from [facility], that he will work with his outpatient providers. Patient has declined to sign disclosure waivers, and so were are not able to contact his doctors. We discussed this case in team meeting this morning, and the team believes that the patient is safe and ready for discharge. He is forward looking, planning on attending AA and following up with his doctors, including primary care. He also says that he has received an invitation from his sister and [id number] to live with them, and he is considering this option. Depression:5/10; Anxiety:2/10 (with 10 the worst.) "My anxiety is better because I took my morning Xanax." Denies suicidal ideation, homicidal ideation, auditory hallucinations, visual hallucinations, paranoid ideation. Patient states and also believes that he will not kill himself. Speech is well articulated, goal-directed, average in rate, volume and tone. Patient reports that his appetite is fine. States that he sleeps approximately 4 hours every night, which is normal for him. The patient understands the risks/benefits/side effects of the medication and is agreeable to continue taking them. Patient reports tolerating his medications well, without complaint. States he is safe and ready for discharge. Discharge HBIPS - Tobacco Use Treatment Offered Post DC Medications Offered: Script Given-See Med List Post DC Tobacco Treatment Plan: [facility] Tobacco Tx Pgm Program Appt Date: 11/16/16 Program Appt Time: 1600 - EtOH/Drug Use D/O Treatment Offered Post DC Medications Offered: Ref Med EtOH/Drug Use D/O Post DC EtOH/SubAbuse TX Plan: Other SubAbuse/Dual Pgm (Pt to f/u with Dr. Busby) Program Appt Date: 11/15/16 Program Appt Time: 0900 Metabolic Screening - Screen if on a Neuroleptic Medication - Metabolic screening should include: - Blood Pressure, BMI, Glucose or Hgb A1c, & a - Lipid profile from within the past 365 days. Metabolic Screening ([x]) Not Applicable, patient not on a neuroleptic. OR () Patient on a neuroleptic(s) . Enter below results for Glucose or Hemoglobin A1C, and lipid panel if obtained during the last 365 days. BMI: 28.600 Blood Pressure: 137/78 Laboratory Results (If applicable): Discharge Instructions General Discharge Information Discharge Medications: Discharge Medications- (Dose, route, freq, indication): HOME MEDICATION LIST START taking these NEW Home Medications: Nicotine (Nicotine Dose: On the skin, DAILY for Qty: 30 Patch) 21 MG/24 HOUR 21 Milligram smoking cessation Refills: 0 PATCH.TD24 Last Taken:11/10/16 Time:0930 CONTINUE taking these Home Medications: Carisoprodol Dose: ORAL, 4 TIMES A DAY for (Carisoprodol) 350 MG 1 Tablet MUSCLE SPASMS TABLET Last Taken:11/11/16 Time:0730 Divalproex Sodium Dose: ORAL, TWICE DAILY for (Divalproex Sodium) 500 500 Milligram MOOD STABILITY MG TABLET.DR Last Taken:11/11/16 Time:0730 Ibuprofen (Ibuprofen) Dose: ORAL, TWICE DAILY for 800 MG TABLET 1 Tablet PAIN Last Taken:11/11/16 Time:0643 Oxycodone HCl (Oxycodone Dose: ORAL, 4 TIMES A DAY for HCl) 10 MG TABLET 1 Tablet PAIN Last Taken:11/11/16 Time:0919 Methadone Hydrochloride Dose: ORAL, TWICE DAILY for (Methadone HCl) 10 MG 1 Tablet CHRONIC PAIN TABLET Last Taken:11/11/16 TIME:0730 Escitalopram Oxalate Dose: ORAL, DAILY for MENTAL (Escitalopram Oxalate) 1 Tablet HEALTH 10 MG TABLET Last Taken:11/11/16 Time:729 Alprazolam (Alprazolam) Dose: ORAL, 4 TIMES A DAY for 2 MG TABLET 1 Tablet ANXIETY/PANIC ATTACKS Last Taken:11/09/16 Time:2200 Your Preferred Pharmacy [facility] [address] [place] [address] Multiple Neuroleptics: (x) Not Applicable OR Document below three failed attempts at monotherapy, or a plan to taper to monotherapy, or augmentation of Clozapine. () Patient's Diet: Regular Patient's Activity: No restrictions DC Disposition: Patient returning to his rented room in a rooming house. Recommendations: Maintain Sobriety. Follow up with Drs. Busby and Raffi. Follow up with Dr. Acosta for primary care, Dr. Zamora for GI. Attend AA. Referred To: Provider Referral Referred To: Qi FUCHS,[address], [address] [phone] Notes: Appt on 11/15/2016 at 9am, as per patient. Provider Referral Referred To: Raffi FUCHS,Abdoulaye Dinero [address] [place] [id number] Notes: Appt today, 11/11/2016 at 12:30pm, as per patient. Provider Referral Referred To: Dave FUCHS,[facility] [address] [facility], [place] [address] Notes: Appointment on 11/14/16 at 9am. Copies To: * Copies To: *
--- NOTE | 2016-11-11 10:43 | CP SOUTH PROGRESS NOTE PSYCH ---
Psych (Inpt) Progress Note Progress Note Progress Note: I discussed this patient's progress to date, current mental status, treatment process in the context of the treatment plan, and discharge planning with staff/ team in the daily morning inpatient team meeting. I also met with the patient myself in individual session. A total of 30 minutes was spent with the patient with more than 50% spent in counseling and/or coordination of care. SUBJECTIVE: "I saw a miracle last night. The AA kinsey who was here last night, lives down the street from me, and he said he'll take me to AA meetings every day." OBJECTIVE: Current Medications Sig/Phuong Start time Last Medication Dose Route Stop Time Status Admin Alprazolam 1 MG 1300,1700 11/10 1300 AC 11/10 PO 11/17 1259 1528 Alprazolam 1.5 MG 0800,11/10 0800 AC 11/11 PO 11/11 2201 0734 Carisoprodol 350 MG 4 TIMES/DAY 11/05 2224 AC 11/11 PO 0735 Divalproex Sodium 500 MG 08,11/07 AC 11/11 PO 0734 Escitalopram Oxalate 20 MG 0800 11/08 0800 AC 11/11 PO 0734 Ibuprofen 600 MG .STK-MED ONE 11/10 2043 DC PO 11/10 2044 Ibuprofen 600 MG .STK-MED ONE 11/10 2042 DC PO 11/10 2043 Ibuprofen 600 MG .STK-MED ONE 11/10 1656 DC PO 11/10 1657 Ibuprofen 600 MG Q8P PRN 11/06 1330 AC 11/11 PO 0643 Lorazepam 2 MG Q2 HRS NEEDED PRN 11/05 2230 AC PO Lorazepam 1 MG Q2 HRS NEEDED PRN 11/05 2230 AC PO Methadone HCl 10 MG 0800,11/07 AC 11/11 PO 0735 Nicotine 21 MG DAILY 11/06 1049 AC 11/10 TOP 0939 Oxycodone HCl 10 MG Q6 PRN 11/06 1319 AC 11/11 PO 0919 Vital Signs Date Time Temp Pulse Resp B/P Pulse O2 O2 Flow FiO2 Ox Delivery Rate 11/11 0747 96.6 62 134/94 11/11 0732 96.6 62 134/94 11/10 2037 97.0 73 137/89 11/10 1547 75 143/96 11/10 1156 66 130/77 11/10 1148 66 130/77 ASSESSMENT: Patient reports that he does not feel suicidal, states that he feels safe and ready for discharge. He has arranged to see his pain management doctor , Dr. Nugent today this afternoon. He has arranged to see his psychiatrist, Dr. Busby next Monday at 9am. Patient states that Dr. Busby has called in prescriptions. Patient states he does not need prescriptions from [facility], that he will work with his outpatient providers. Patient has declined to sign disclosure waivers, and so were are not able to contact his doctors. We discussed this case in team meeting this mornings, and the team belives that the patient is safe and ready for discharge. He is forward looking, planning on attending AA and following up with his doctors, including primary care. He also says that he has received an invitation from his sister and [id number] to live with them, and he is considering this option. Depression:5/10; Anxiety:2/10 (with 10 the worst.) "My anxiety is better because I took my morning Xanax." Denies suicidal ideation, homicidal ideation, auditory hallucinations, visual hallucinations, paranoid ideation. Patient states and also believes that he will not kill himself. Speech is well articulated, goal-directed, average in rate, volume and tone. Patient reports that his appetite is fine. States that he sleeps approximately 4 hours every night, which is normal for him. The patient understands the risks/benefits/side effects of the medication and is agreeable to continue taking them. PLAN: Discharge today. Patient will follow-up with his psychiatrist Dr. Busby who is prescribing Xanax, Depakote and Lexapro. He will follow-up with Dr. Nugent, today, who will be prescribing his pain medications. He will also follow up with Trupti Acosta MD for primary care. Continue with current management as patient is improving. Continue to provide support and encouragement.
[2016-11-11] MEDS ORDERED: NICOTINE PATCH1 EAC3 TOP (10:48)
--- NOTE | 2016-11-11 11:06 | SOCIAL WORKER PROG NOTE PSYCH ---
Social Work Progress Note Progress Note Patient to discharge the hospital today. Patient denies SI/HI/AH/VH at present and is reporting looking forward to discharging home today. Patient has appointment today with pain management doctor, , to receive pain prescription until he has injectible appointment on 11/22/16. Patient also has appointment with Dr. Busby on 11/15/16 @ 9am for psychotropic medications. Patient reports that last evening he attended the AA meeting on the unit and connected with the leader of the group who also resides on [address]. Patient obtained his phone number and he has offerred to provide transporation for patient to and from meetings daily. Patient reports planning to attend an AA meeting this evening.
[2016-11-11 12:06] VITALS: BP 137/78
== END 2016-11-11 13:40 | DRG 881 ==
LOC: ERH 16:29 → CP SOUTH 20:52 → ERHI 20:52 → ENPENDDIS 20:52 → CP SOUTH 21:38
PROVIDERS: Physician Assistant Surgical; ADMIT Psychiatry & Neurology Psychiatry
DX: F32.9 Major depressive disorder, single episode, unspecified (principal); F14.90 Cocaine use, unspecified, uncomplicated
CPT/HCPCS: 36415; 80307; G0480

== ENCOUNTER 2016-11-21 01:37 | Inpatient (IN) | payer OTHER, MEDICARE ==
[~2016-11-21] VITALS: Ht 175.3 cm; Wt 95.3 kg
[~2016-11-21 01:37] MED LIST changes: +NICOTINE PATCH1 EAC3 TOP
--- NOTE | 2016-11-21 01:45 | ED MVC/FALL/TRAUMA COMPLAINT ---
History of Present Illness General Chief Complaint: Fall Stated Complaint: "PER EMS FALL" Source: patient, EMS Exam Limitations: no limitations Vital Signs & Intake/Output Vital Signs & Intake/Output Vital Signs Date Time Temp Pulse Resp B/P Pulse O2 O2 Flow FiO2 Ox Delivery Rate 11/21 0650 97.1 64 20 120/82 97 Nasal 2.0L Cannula 11/21 0550 97.0 80 20 122/89 99 Nasal 2.0L Cannula 11/21 0510 97.1 62 20 132/85 98 Nasal 2.0L Cannula 11/21 0353 62 22 127/83 100 Nasal 2.0L Cannula 11/21 0307 97.4 68 20 132/86 98 Room Air 11/21 0147 97.6 82 18 107/67 95 Room Air Allergies Coded Allergies: diphenhydramine (From BENADRYL) (HYPER PER PT SAYS IT FEELS LIKE BEGINNING OF A PANIC ATTACK 11/05/16) quetiapine (HYPERACTIVE, PER PT STATES HE FELT SUICIDAL 11/05/16) trazodone (WOKE UP FEELING DRUNK, HAD TO TAKE TO MUCH FOR SLEEP HELP 11/05/16) Reconcile Medications Alprazolam 2 MG TABLET 1 TAB PO 4 TIMES/DAY ANXIETY/PANIC ATTACKS (Reported) Carisoprodol 350 MG TABLET 1 TAB PO 4 TIMES/DAY MUSCLE SPASMS (Reported) Divalproex Sodium 500 MG TABLET.DR 500 MG PO BID MOOD STABILITY (Reported) Escitalopram Oxalate 10 MG TABLET 1 TAB PO DAILY MENTAL HEALTH (Reported) Ibuprofen 800 MG TABLET 1 TAB PO BID PAIN (Reported) Methadone Hydrochloride (Methadone HCl) 10 MG TABLET 1 TAB PO BID CHRONIC PAIN (Reported) Nicotine (Nicotine Patch) 21 MG/24 HOUR PATCH.TD24 21 MG TOP DAILY smoking cessation Oxycodone HCl 10 MG TABLET 1 TAB PO 4 TIMES/DAY PAIN (Reported) Triage Nurses Notes Reviewed? yes Onset: Abrupt Duration: minute(s): Timing: single episode today Severity: moderate Injuries/Fall Location: head, face, abdomen Method of Injury: fall Loss of Consciousness: unsure Modifying Factors: Improves With: rest. Associated Symptoms: head injury HPI: 55-year-old gentleman was brought in by ambulance after a fall with mental status change. Per the medics, he had taken several Soma pills, Xanax, and was possibly drinking tonight. Per the patient, he states that he fell down a flight of stairs and then crawled back up. He presents lethargic with difficulty answering questions. (MARIANELA VILLA MD) Past History Travel History Traveled to [place] past 21 day No Medical History Any Pertinent Medical History? see below for history Neurological: migraine, seizure (also has some gait problems), SCIATICA TBI EENT: EYE SURGERY Cardiovascular: NONE Respiratory: NONE Gastrointestinal: pancreatitis Hepatic: hepatitis C Renal: NONE Musculoskeletal: chronic back pain, disk herniation, falls, fracture, BROKEN RIGHT FOOT hx skull and jaw fx's Psychiatric: alcohol dependence (in remission), anxiety, bipolar disease, chronic pain disorder, depression, opioid dependence (opioid pain management), substance abuse (hx alcohol and drug abuse), PANIC ATTACKS benzodiazepine abuse opiate pain management Endocrine: NONE Blood Disorders: NONE Cancer(s): NONE 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 History of MRSA: Yes History of VRE: No History of CDIFF: No Pneumonia Vaccine: 10/08/13 Influenza Vaccine: 08/17/16 Surgical History Surgical History: NECK, SKULL Psychosocial History Who do you live with Patient/Self Services at Home None What is your primary language Azeri Family History Family History, If Any: No Known Family History. Hx Contributory? No (MARIANELA VILLA MD) Review of Systems Review of Systems Constitutional: Reports: no symptoms. Eyes: Reports: no symptoms. Ears, Nose, Throat, Mouth: Reports: no symptoms. Respiratory: Reports: no symptoms. Cardiovascular: Reports: no symptoms. Gastrointestinal/Abdominal: Reports: no symptoms. Genitourinary: Reports: no symptoms. Musculoskeletal: Reports: no symptoms. Skin: Reports: no symptoms. Neurological/Psychological: Reports: no symptoms. All Other Systems: Reviewed and Negative (MARIANELA VILLA MD) Physical Exam Physical Exam General Appearance: well developed/nourished, lethargic, mild distress, moderate distress Head: abrasions and ecchymosis on forehead Eyes: Bilateral: PERRL, EOMI, other (bilateral pupils 7 mm). Ears, Nose, Throat, Mouth: hearing grossly normal, moist mucous membrane Neck: normal inspection, supple, full range of motion, normal alignment Respiratory: normal breath sounds, chest non-tender, no respiratory distress, quiet respiration, lungs clear Cardiovascular: regular rate/rhythm Gastrointestinal: normal bowel sounds, soft, no organomegaly, 10 x 8 cm ecchymosis and left-sided abdomen minimally tender to palpation Back: normal inspection, normal range of motion Extremities: normal range of motion Neurologic/Psych: no motor/sensory deficits, awake, alert, oriented x 3 Skin: intact, normal color, warm/dry (KAYLIN FUCHS,MARIANELA Johnson) Core Measures ACS in differential dx? No Severe Sepsis Present: No Septic Shock Present: No (MALLORY NAJERA DO) Progress Differential Diagnosis: C/T/L spine injury, ext injury, alcohol intoxication versus polysubstance abuse Plan of Care: Orders Procedure Date/time Status CBC WITHOUT DIFFERENTIAL 11/22 06 Active BASIC ELECTROLYTES PLUS BUN&CR 11/22 0600 Active Heart Healthy Diet 11/21 L Active Pathway - chart 11/21 0816 Active House Staff 11/21 0816 Active Patient Data 11/21 0816 Active Patient Data 11/21 0758 Active Admit to inpatient 11/21 0746 Active Vital Signs 11/21 0746 Active Code Status 11/21 0746 Active Add-on Test (ER Only) 11/21 0719 Active ARTERIAL BLOOD GAS (GEN) 11/21 0432 Complete FingerStick- Glucose 11/21 0302 Active Intake & Output 11/21 0231 Active ACETOMINOPHEN 11/21 0204 Complete SALICYLATE 11/21 0204 Complete URINE DRUG SCREEN FOR ER ONLY 11/21 0145 Complete TROPONIN LEVEL 11/21 0145 Complete ETHANOL 11/21 0145 Complete COMPREHENSIVE METABOLIC PANEL 11/21 0145 Complete CBC WITHOUT DIFFERENTIAL 11/21 0145 Complete EKG 11/21 0145 Active VTE Mechanical Prophylaxis 11/21 UNK Active Telemetry/Wire Brush Maker 11/21 UNK Active Heat/Cold Therapy 11/21 UNK Active SOCIAL WORK CONSULT 11/21 UNK Active PSYCHIATRIC CONSULT 11/21 UNK Active Current Medications Sig/Phuong Start time Last Medication Dose Stop Time Status Admin Enoxaparin Sodium 40 MG DAILY 11/21 1000 AC (Lovenox) Laboratory Tests 11/21/16 0435: pH 7.44, pCO2 35, pO2 102 H, HCO3 23, ABG O2 Sat (Measured) 97.0, P-50 (Temp Corrected) N, Carboxyhemoglobin 1.3 L, O2 Concentration % 2L, O2 Delivery Method N/C, Phlebotomy Draw Site RIGHT BRACHIAL 11/21/16 0250: Urine Opiates Screen 189.00, Methadone Screen 60, Barbiturate Screen 85, Ur Phencyclidine Scrn < 6.00, Amphetamines Screen < 100, U Benzodiazepines Scrn > 800 H, Urine Cocaine Screen > 1000 H, Urine Cannabis Screen < 5.00 11/21/16 0204: Anion Gap 9, Estimated GFR > 60, BUN/Creatinine Ratio 12.2, Glucose 93, Calcium 8.6, Total Bilirubin 0.8, AST 40, ALT 65, Alkaline Phosphatase 73, Troponin I < 0.01, Total Protein 6.6, Albumin 3.5, Globulin 3.1, Albumin/Globulin Ratio 1.1, CBC w Diff NO MAN DIFF REQ, RBC 3.54 L, MCV 89.0, MCH 29.5, RDW 16.0 H, MPV 7.8, Gran % 64.0, Lymphocytes % 21.6, Monocytes % 8.8, Eosinophils % 5.3 H, Basophils % 0.3, Absolute Granulocytes 2.5, Absolute Lymphocytes 0.9 L, Absolute Monocytes 0.3, Absolute Eosinophils 0.2, Absolute Basophils 0, PUBS MCHC 33.2, Salicylates < 1.0, Acetaminophen < 10.0 L, Serum Alcohol < 10.0 Diagnostic Imaging: Viewed by Me: CT Scan. Discussed w/RAD: CT Scan. Radiology Impression: head/cervical ct... djd, hardware intact, chest/abd/ pelvic... no acute dz. Initial ED EKG: normal axis, normal intervals, normal p-waves, normal QRS complex, normal sinus rhythm Comments: PATIENT: RIVER GONGORA PRESENT AGE: 55 PATIENT ACCOUNT NO: [id number] : 62 LOCATION: [facility] ORDERING PHYSICIAN: MARIANELA VILLA MD SERVICE DATE: 11/21/16 EXAM TYPE: CAT - CT ABD & PELVIS W/O IV CONTRAS; CT CHEST WO IV CONTRAST EXAMINATION: CT CHEST, ABDOMEN AND PELVIS WITHOUT CONTRAST CLINICAL INFORMATION: Pain following trauma. COMPARISON: 05/15/2016. TECHNIQUE: Contiguous axial thin section helical images of the chest, abdomen and pelvis were performed without oral or IV contrast. The data set was reformatted in the coronal and sagittal planes and reviewed on an independent workstation. DLP: 1113 mGy-cm. FINDINGS: The heart is of normal size. There is no pericardial effusion. There is neither mediastinal, hilar nor axillary lymphadenopathy. There are no chest wall masses. Review of lung windows demonstrates that there are neither pleural effusions nor pneumothoraces. There are no consolidations. There are no pulmonary parenchymal nodules. The liver is of normal size and attenuation without focal lesions nor intrahepatic biliary ductal dilation. The patient is status post cholecystectomy. Surgical clips are identified. The spleen, pancreas, adrenal glands are unremarkable. Both kidneys are of normal size and attenuation without hydronephrosis. There is a 5 mm nonobstructive left lower pole renal calculus. Following the administration of IV contrast, prompt symmetric nephrograms are displayed. There is no abdominal free fluid. There is neither mesenteric nor retroperitoneal lymphadenopathy. Normal opacified loops of small and large bowel are identified. There is no pelvic free fluid. The urinary bladder is unremarkable. There is neither pelvic nor inguinal lymphadenopathy. There is a fat-containing right inguinal hernia. Bone windows: There is evidence of a prior T9 vertebral body fracture with subsequent vertebroplasty. Partially visualized is lower cervical spine cervical spine fusion hardware. IMPRESSION: No evidence for acute injury. Remote T9 vertebral fracture with subsequent vertebroplasty. 5 mm nonobstructive left lower pole renal calculus. Status post cholecystectomy. DICTATED BY: JAYDEN BETANCOURT MD DATE/TIME DICTATED:11/21/16252 WEATHER STRIP INSTALLER:NAZIA DATE/TIME TRANSCRIBED:11/21/16252 CONFIDENTIAL, DO NOT COPY WITHOUT APPROPRIATE AUTHORIZATION. <Electronically signed in Other Vendor System> SIGNED BY: JAYDEN BETANCOURT MD 11/21/16 0308 PATIENT: RIVER GONGORA PRESENT AGE: 55 PATIENT ACCOUNT NO: [id number] : 62 LOCATION: [facility] ORDERING PHYSICIAN: MARIANELA VILLA MD SERVICE DATE: 11/21/16 EXAM TYPE: CAT - CT ABD & PELVIS W/O IV CONTRAS; CT CHEST WO IV CONTRAST EXAMINATION: CT CHEST, ABDOMEN AND PELVIS WITHOUT CONTRAST CLINICAL INFORMATION: Pain following trauma. COMPARISON: 05/15/2016. TECHNIQUE: Contiguous axial thin section helical images of the chest, abdomen and pelvis were performed without oral or IV contrast. The data set was reformatted in the coronal and sagittal planes and reviewed on an independent workstation. DLP: 1113 mGy-cm. FINDINGS: The heart is of normal size. There is no pericardial effusion. There is neither mediastinal, hilar nor axillary lymphadenopathy. There are no chest wall masses. Review of lung windows demonstrates that there are neither pleural effusions nor pneumothoraces. There are no consolidations. There are no pulmonary parenchymal nodules. The liver is of normal size and attenuation without focal lesions nor intrahepatic biliary ductal dilation. The patient is status post cholecystectomy. Surgical clips are identified. The spleen, pancreas, adrenal glands are unremarkable. Both kidneys are of normal size and attenuation without hydronephrosis. There is a 5 mm nonobstructive left lower pole renal calculus. Following the administration of IV contrast, prompt symmetric nephrograms are displayed. There is no abdominal free fluid. There is neither mesenteric nor retroperitoneal lymphadenopathy. Normal opacified loops of small and large bowel are identified. There is no pelvic free fluid. The urinary bladder is unremarkable. There is neither pelvic nor inguinal lymphadenopathy. There is a fat-containing right inguinal hernia. Bone windows: There is evidence of a prior T9 vertebral body fracture with subsequent vertebroplasty. Partially visualized is lower cervical spine cervical spine fusion hardware. IMPRESSION: No evidence for acute injury. Remote T9 vertebral fracture with subsequent vertebroplasty. 5 mm nonobstructive left lower pole renal calculus. Status post cholecystectomy. DICTATED BY: JAYDEN BETANCOURT MD DATE/TIME DICTATED:11/21/16252 WEATHER STRIP INSTALLER:NAZIA DATE/TIME TRANSCRIBED:11/21/16252 CONFIDENTIAL, DO NOT COPY WITHOUT APPROPRIATE AUTHORIZATION. <Electronically signed in Other Vendor System> SIGNED BY: JAYDEN BETANCOURT MD 11/21/16 0308 (MARIANELA VILLA MD) Departure Departure Disposition: HOME OR SELF CARE Referrals: PATIENT HAS NO PRIMARY CARE DR (PCP/Family) Departure Forms: Customer Survey General Discharge Information (MARIANELA VILLA MD) Departure Condition: Stable Clinical Impression Primary Impression: Drug overdose Secondary Impressions: Abrasions of multiple sites, Adverse effect of drug, Cocaine abuse, Fall, Multiple contusions, Polysubstance abuse Admission Note Spoke With: BRIGID TOM MD Documentation of Exam: Documentation of any treatments & extenuating circumstances including Concerns Regarding Discharge (functional status, medication knowledge or non-compliance, living conditions, etc.) that warrant an admission rather than observation: [The patient was signed out to me by Dr. Villa. He's had episodes of respiratory depression, he continues to have slurred speech and lethargy, he took an unknown amount of Soma. He is actually requesting opioid medications in the ED, history of bipolar disorder. He is being admitted to the telemetry service for continued monitoring of respiratory depression, follow the aspirin and Tylenol level, inpatient psychiatric consultation.] (MALLORY NAJERA DO)
[2016-11-21 02:37] LABS: ABSOLUTE BASOPHIL COUNT 0 /CUMM (0.0-0.2); ABSOLUTE EOSINOPHIL COUNT 0.2 /CUMM (0.0-0.7); ABSOLUTE GRANULOCYTE CT 2.5 /CUMM (1.4-6.5); ABSOLUTE LYMPH COUNT 0.9 /CUMM (1.2-3.4); ABSOLUTE MONOCYTE COUNT 0.3 /CUMM (0.10-0.60); BASOPHIL % 0.3 % (0.0-2.0); EOSINOPHIL % 5.3 % (0-5); HEMATOCRIT 31.5 % (42-52); MEAN CORPUSCULAR HGB 29.5 PG (27.0-31.0); MEAN CORPUSCULAR HGB CONC 33.2 G/DL (33.0-37.0); MEAN PLATELET VOLUME 7.8 FL (7.4-10.4); PLATELET COUNT 171 /CUMM (130-400); RED BLOOD CELL CT 3.54 /CUMM (4.70-6.10); WHITE BLOOD CELL COUNT 3.9 /CUMM (4.8-10.8)
--- NOTE | 2016-11-21 02:56 | CT SCAN REPORT ---
EXAMINATIONS: CT HEAD WITHOUT CONTRAST AND CT CERVICAL SPINE WITHOUT CONTRAST CLINICAL INFORMATION: Mental status change following trauma. Pain. COMPARISON: 04/30/2016. TECHNIQUE: Contiguous helical images of the brain were obtained without IV contrast. Contiguous helical images of the cervical spine were obtained without IV contrast. Multiplanar reconstructions were performed. DLP: 286 mGy-cm. FINDINGS: There are no pathologic extra-axial fluid collections. The lateral, third, fourth ventricles are nondilated and concordant with the appearance of the sulci. There is no evidence for acute intraparenchymal hemorrhage or infarct. There is neither mass nor mass effect. There is no shift of midline structures. The paranasal sinuses and mastoid air cells are clear. There are no osseous lesions. The cervical vertebra are in normal alignment. Anterior cervical spine fusion hardware extending from C5 to C7 is intact without failure or migration. There is multilevel disc height loss at this level. Remaining disc heights and vertebral body heights are well-preserved.. There are no fractures. There is no prevertebral soft tissue swelling. There is no cervical lymphadenopathy. The visualized lung apices are clear. IMPRESSION: No evidence for acute intracranial injury. No evidence for acute injury to the cervical spine. Intact hardware extending from C5 to C7.
--- NOTE | 2016-11-21 03:08 | CT SCAN REPORT ---
EXAMINATION: CT CHEST, ABDOMEN AND PELVIS WITHOUT CONTRAST CLINICAL INFORMATION: Pain following trauma. COMPARISON: 05/15/2016. TECHNIQUE: Contiguous axial thin section helical images of the chest, abdomen and pelvis were performed without oral or IV contrast. The data set was reformatted in the coronal and sagittal planes and reviewed on an independent workstation. DLP: 1113 mGy-cm. FINDINGS: The heart is of normal size. There is no pericardial effusion. There is neither mediastinal, hilar nor axillary lymphadenopathy. There are no chest wall masses. Review of lung windows demonstrates that there are neither pleural effusions nor pneumothoraces. There are no consolidations. There are no pulmonary parenchymal nodules. The liver is of normal size and attenuation without focal lesions nor intrahepatic biliary ductal dilation. The patient is status post cholecystectomy. Surgical clips are identified. The spleen, pancreas, adrenal glands are unremarkable. Both kidneys are of normal size and attenuation without hydronephrosis. There is a 5 mm nonobstructive left lower pole renal calculus. Following the administration of IV contrast, prompt symmetric nephrograms are displayed. There is no abdominal free fluid. There is neither mesenteric nor retroperitoneal lymphadenopathy. Normal opacified loops of small and large bowel are identified. There is no pelvic free fluid. The urinary bladder is unremarkable. There is neither pelvic nor inguinal lymphadenopathy. There is a fat-containing right inguinal hernia. Bone windows: There is evidence of a prior T9 vertebral body fracture with subsequent vertebroplasty. Partially visualized is lower cervical spine cervical spine fusion hardware. IMPRESSION: No evidence for acute injury. Remote T9 vertebral fracture with subsequent vertebroplasty. 5 mm nonobstructive left lower pole renal calculus. Status post cholecystectomy.
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
--- NOTE | 2016-11-21 11:06 | Admission Certification ---
Admission Certification Certification Statement - As attending physician, I certify that at the time of - admission, based on clinical presentation, severity of - symptoms, need for further diagnostic testing and - therapeutic interventions, and risk of adverse outcomes - without in-hospital treatment, in my clinical assessment, - this patient requires an acute hospital stay for a minimum - of two nights or longer. I have also considered psychsocial - factors such as support system, advanced age, financial - issues, cognitive issues, and failed out-patient treatments, - past re-admission history, safety of patient, and lack of - compliance as applicable. Specific rationale supporting this admission is: Acute hypoxemic respiratory failure with drug overdose questionable unintentional.
[2016-11-21 16:15] VITALS: BP 140/80
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
[2016-11-21 22:39] VITALS: BP 120/74
[2016-11-22 06:07] LABS: ABSOLUTE BASOPHIL COUNT 0 /CUMM (0.0-0.2); ABSOLUTE EOSINOPHIL COUNT 0.3 /CUMM (0.0-0.7); ABSOLUTE GRANULOCYTE CT 1.9 /CUMM (1.4-6.5); ABSOLUTE LYMPH COUNT 1.2 /CUMM (1.2-3.4); ABSOLUTE MONOCYTE COUNT 0.3 /CUMM (0.10-0.60); BASOPHIL % 0.4 % (0.0-2.0); EOSINOPHIL % 8.7 % (0-5); GRANULOCYTE % 50.2 % (42.2-75.2); HEMATOCRIT 31.9 % (42-52); MEAN CORPUSCULAR HGB 29.7 PG (27.0-31.0); MEAN CORPUSCULAR HGB CONC 32.9 G/DL (33.0-37.0); MEAN CORPUSCULAR VOLUME 90.3 FL (80.0-94.0); MEAN PLATELET VOLUME 7.8 FL (7.4-10.4); PLATELET COUNT 147 /CUMM (130-400); RBC DISTRIBUTION WIDTH 16.6 % (11.5-14.5); RED BLOOD CELL CT 3.53 /CUMM (4.70-6.10); WHITE BLOOD CELL COUNT 3.8 /CUMM (4.8-10.8)
--- NOTE | 2016-11-22 07:24 | PN- Housestaff ---
MARY ANNE GRANDE 11/22/16 0724: Subjective Follow-up For: Acute altered mental status with respiratory depression from drug overdose(urine toxicology positive for cannabis and benzos ) Tele-Events Since Last Visit: Normal sinus rhythm heart rate in the range of 57-77 with no overnight events. Subjective: Patient is seen and examined today lying comfortably in the bed, reports left- sided muscular chest pain after the fall, denies any trouble breathing or palpitations. Patient had an episode of acute onset chest discomfort overnight 2 sets of troponin are negative and EKG did not reveal any acute ST-T changes Patient has been evaluated by yesterday, will follow the recommendations currently has one-to-one sitter. Review of Systems Constitutional: Denies: chills, diaphoresis, fever. EENTM: Denies: blurred vision, visual changes, eye pain. Cardiovascular: Denies: chest pain, edema, orthopena, palpitations. Respiratory: Denies: cough, hemoptysis, orthopnea. Gastrointestinal: Denies: abdominal pain, bloating, constipation, diarrhea. Genitourinary: Denies: discharge, dysuria, frequency. Objective Last 24 Hrs of Vital Signs/I&O Vital Signs Date Time Temp Pulse Resp B/P Pulse O2 O2 Flow FiO2 Ox Delivery Rate 11/21 2239 97.6 66 18 120/74 97 Room Air 11/21 1615 97.7 67 18 140/80 98 Room Air 11/21 1005 98.1 65 18 118/71 100 Room Air Intake & Output 11/22 1600 11/22 0800 11/22 0000 Intake Total 480 720 Output Total Balance 480 720 Intake, Oral 480 720 Patient 210 lb Weight Physical Exam General Appearance: Alert, Oriented X3 Skin: No Rashes, No Breakdown HEENT: Atraumatic, PERRLA Cardiovascular: Regular Rate, Normal S1, Normal S2 Lungs: Clear to Auscultation, Normal Air Movement Abdomen: Normal Bowel Sounds, Soft Current Medications: Current Medications Sig/Phuong Start time Last Medication Dose Route Stop Time Status Admin Acetaminophen 650 MG Q4P PRN 11/21 1015 AC 11/22 PO 0221 Alprazolam 0.5 MG BID 11/27 2200 AC PO 12/04 2159 Alprazolam 0.5 MG Q8 11/26 0600 AC PO 11/27 1401 Alprazolam 0.5 MG Q6 11/24 2000 AC PO 11/25 1801 Alprazolam 0.5 MG Q4 11/23 2200 AC PO 11/24 1401 Alprazolam 1 MG Q6 11/22 1800 AC PO 11/23 1801 Alprazolam 1 MG Q4 11/22 0200 AC 11/22 PO 11/22 1001 0557 Alprazolam 1 MG Q4 HRS NEEDED PRN 11/21 1015 DC 11/21 PO 11/28 1014 2211 Divalproex Sodium 500 MG BID 11/21 1000 AC 11/21 PO 2210 Enoxaparin Sodium 0 .STK-MED ONE 11/21 1015 DC SC Enoxaparin Sodium 40 MG DAILY 11/21 1000 AC SC Escitalopram Oxalate 10 MG DAILY 11/22 1000 AC PO Haloperidol 2 MG ONCE ONE 11/21 1845 DC 11/21 IM 11/21 1846 1845 Ibuprofen 0 .STK-MED ONE 11/21 1042 DC PO Ibuprofen 0 .STK-MED ONE 11/21 1014 DC PO Ibuprofen 800 MG BID 11/21 1000 AC 11/21 PO 2211 Methadone HCl 0 .STK-MED ONE 11/21 1042 DC PO Methadone HCl 0 .STK-MED ONE 11/21 1015 DC PO Methadone HCl 10 MG BID 11/21 1000 AC 11/21 PO 2211 Last 24 Hrs of Lab/Romero Results Last 24 Hrs of Labs/Mics: Laboratory Tests 11/22/16 0520: Anion Gap 6, Estimated GFR > 60, BUN/Creatinine Ratio 8.9, Troponin I < 0.01, CBC w Diff NO MAN DIFF REQ, RBC 3.53 L, MCV 90.3, MCH 29.7, RDW 16.6 H, MPV 7.8, Gran % 50.2, Lymphocytes % 31.8, Monocytes % 8.9, Eosinophils % 8.7 H, Basophils % 0.4, Absolute Granulocytes 1.9, Absolute Lymphocytes 1.2, Absolute Monocytes 0.3, Absolute Eosinophils 0.3, Absolute Basophils 0, PUBS MCHC 32.9 L 11/22/16 0500: Troponin I Cancelled 11/21/16 2050: Troponin I 0.02 Assessment/Plan Assessment: Patient is a 55-year-old gentleman with past medical history significant for HCV , pancreatitis, opioid dependance, chronic back pain (multiple back surgeries)- on methadone, bipolar disorder, seizure disorder(on Depakote), history of vasculitis(not on any treatment) recently admitted to Inpatient Psychiatry for for increasing depression and suicidal ideation and drug overdose, was brought in through an ambulance with a chief complaint of fall , altered mental status with drug overdose. Patient received Narcan 0.8 mg twice in the ER. Vitals on admission temperature 97.6, pulse 82, respiratory rate 18, blood pressure 107/67 decision was 92% on 2 L. Pertinent labs H&H low 10.4/31.5, BEP normal ABG pH of 7.44 with PCO2 of 35, PO2 102 Urine tox : benzodiazepines more than [address] scan:No evidence for acute intracranial injury. No evidence for acute injury to the cervical spine. Intact hardware extending from C5 to C7. CT chest and abdomen:No evidence for acute injury. Remote T9 vertebral fracture with subsequent vertebroplasty. Assessment and plan Assessment and plan 1. Acute altered mental status with respiratory depression from drug overdose( urine toxicology positive for cannabis and benzos ) * No overnight events on court monitor, will transfer the patient and [facility] discontinue telemetry monitoring. * Avoid beta blockers. * Patient has been evaluated by psychiatry recommended to taper down the Xanax Patient has been started on a taper Xanax dose as recommendations. * As patient is clearly depressed and an overdosed himself(possibility of suicidal attempt), patient cannot leave against AMA unless cleared by psych. * Social consult. * 1:1 sitter * Watch for any hemodynamic instability, avoid narcotics. * Patient might require inpatient psychiatry once medically cleared. 2.History of bipolar disease * Continue divalproex. 3. History of chronic back pain: * Continue methadone 10 mg twice a day * Local pain control with Lidoderm patch. * Will confirm the dose of oxycodone from the pharmacy 4. History of seizures: * Continue Depakote, will call the pharmacy and confirmed the dose. * Check valproic acid level on 11/24/16 5. History of smoking * Start the patient on nicotine patches * Smoking cessation counseling has been done. 6 mild to moderate pain controlled with Tylenol 7. DVT prophylaxis with Lovenox 7. Patient is full code(will address the CODE STATUS, once patient becomes more alert and awake). Problem List: 1. Anemia 2. Anxiety disorder Pain Ratin Pain Location: Left-sided chest pain was likely muscular Pain Goal: Remain pain free Pain Plan: When necessary Lidoderm and methadone Tomorrow's Labs & Rationales: No need of labs tomorrow BRIAN CESPEDES MD 11/22/16 1018: Attending MD Review Statement Attending Statement Attending MD Statement: examined this patient, discuss w/resident/PA/AIRCRAFT SEAT UPHOLSTERER, agreed w/resident/PA/AIRCRAFT SEAT UPHOLSTERER, reviewed EMR data (avail), discussed with nursing, discussed with case mgmt Attending Assessment/Plan: Pt is intermittently agitated and won't allow a complete physical exam. He is a 55-year-old male with chronic opiate dependence who is here after a questionable intentional versus unintentional overdose. His U tox is also positive for cocaine. At this point we are following psych's recommendations with regard to the benzo taper and his other medications. He has chronic hepatitis C which is stable. His CT scan of his head ,chest ,abdomen, pelvis without contrast was negative. His hypoxemia and lethargy is resolved and he doesn't need a continuous pulse ox monitor anymore. Will need to clarify with psych whether he needs ongoing inpatient psychiatric treatment.
[2016-11-22 08:28] VITALS: BP 138/94
--- NOTE | 2016-11-22 13:07 | PN- Psychiatry ---
Assessment/Plan Impression: Identifying Info: 55-year-old single male presents to [facility] emergency department status post patient reported fall. Per patient report he had taken 6 extra Soma that day, interviewed today on . SUBJECTIVE Patient reports "I'm hallucinating again," and then states he earlier in the day saw a picture on the wall talking to him. He continues to report continued hallucinations throughout the day including during interview. "I'm scared." patient reports he does not feel safe in hospital room if one-to-one sitter was discontinued and that he's been thinking about jumping out the window. Then states "I don't think I need to be in a psych pruitt." OBJECTIVE Mental Status Exam Presentation/Appearance: Cooperative with evaluation. Hospital garb. Somewaht unkempt. Poor historian. Orientation: x4 Sensorium: Awake and alert Eye contact: Appropriate Affect: Labile Mood: "I'm scared" Depression: Endorses Anxiety: Endorses Thought Content: - Endorses SI with plan to jump out window of room "if my pain is not controlled." - Endorses Continual AVH but has difficulty articulating what he is hearing and seeing OF NOTE, the patient does not appear internally stimulated and responds appropriately to assessment questsions. - Denies HI, PI. States and also believes they will not kill themselves. - Denies Hopeless/Helpless Thoughts Thought Process: Tangential at times, perseverative on meds Speech: Normal tone and rate Judgment: Poor Insight: Poor Cognition: Memory: Endorses deficits, grossly intact Attention/Concentration: Grossly intact Abstractions:[facility] Brief ROS Gait: Per report unstaedy Sleep: Per pt report poor Appetite: Adequate ASSESSMENT 55-year-old single male continues to endorse suicidal ideation in the context of chronic pain and polysubstance abuse. Of note while he reports she is actively hallucinating he is able to hold a lucid conversation, patient is a poor historian. because he cannot contract for safety at present may require inpatient psychiatric hospitalization. He may not be welcome back on CPS and may require a bed search once medically cleared if he does not deny SI. Differential diagnosis Bipolar disorder NOS, most recent episode depressed Cocaine use disorder Opioid dependence Benzodiazepine dependence Chronic pain disorder Suggestion: 1. Continue to plan for inpatient hospitalization on [employer] Emergency Certificate. 2. Continue psychotropics as currently ordered 3. Continue one-to-one patient may not leave hospital AMA or otherwise until cleared by psychiatry. 4. Patient reports he is open to talk therapy we will provide him with information for individual therapists in the area for him to reach out to. 5. Ensure a discharge summary is provided to his outpatient psychiatrist Dr. Magdi Busby. Thank you for including psychiatry in this case we will continue to follow. Jaylon Faulkner APRN, pager [phone] Subjective Subjective: .
[2016-11-22 16:03] VITALS: BP 142/88
--- NOTE | 2016-11-22 16:19 | Discharge Summary ---
Visit Information Visit Dates Admission Date: 11/21/16 Discharge Date: 11/25/16 Hospital Course Course Attending Physician: RUBINA FUCHS,BRIAN Marshall Primary Care Physician: PATIENT HAS NO PRIMARY CARE DR Hospital Course: Patient is a 55-year-old gentleman with past medical history significant for HCV , pancreatitis, opioid dependance, chronic back pain (multiple back surgeries)- on methadone, bipolar disorder, seizure disorder(on Depakote), history of vasculitis(not on any treatment) recently admitted to Inpatient Psychiatry for for increasing depression and suicidal ideation and drug overdose, was brought in through an ambulance with a chief complaint of fall , altered mental status with drug overdose. Vitals on admission temperature 97.6, pulse 82, respiratory rate 18, blood pressure 107/67 decision was 92% on 2 L. Pertinent labs H&H low 10.4/31.5, BEP normal ABG pH of 7.44 with PCO2 of 35, PO2 102 Urine tox : benzodiazepines more than [address] scan:No evidence for acute intracranial injury. No evidence for acute injury to the cervical spine. Intact hardware extending from C5 to C7. CT chest and abdomen:No evidence for acute injury. Remote T9 vertebral fracture with subsequent vertebroplasty. Following problems were as this while patient was on telemetry floor: 1. Acute altered mental status with respiratory depression from drug overdose( urine toxicology positive for cannabis and benzos)- Patient was admitted to telemetry floor for continuous pulse ox. He was seen by psychiatry, required one-to-one sitter due to her suicidal ideation Patient remained stable on the telemetry floor without any acute events/or arrhythmias. Psych medications were resumed and patient was started on a taper Xanax dose per psychiatry. Later he was transferred to the [facility]. Patient was reevaluated by psych as per recommendations he was deemed not suicidal anymore and was safe to be discharged home. 2. Suicidal Ideation- on admission, pt did complain of +SI. Psych consult was obtained, 1:1 sitter was placed. 1 day prior to d/c psych did reassess the patient and his SI had passed, he was deemed no longer suicidal per psychiatry and the 1:1 sitter was discontinued. He will be following up with his OP psychiatrist as indicated below. 3. Right ankle pain- On day 3 of admission he complained of right ankle pain, no trauma or fall while in the hospital; he did have a fx of b/l ankle fx in the past. A foot xray was negative, uric acid was WNL. 4. History of bipolar disease and seizures- Home dose of Depakote was continued. 5. History of chronic back pain- Home medications including methadone and oxycodone after confirming with the pharmacy were resumed. It was explained to the patient the need to taper his Xanax regiment. He is to be discharged on 0.5 mg q6 until he sees his Psychiatrist Dr. Lucero on at 4pm. We will not be giving him a new script for Xanax. He was recently gien [address] Lucero and he was advised to cut them into one-fourth' equalling 0.5 mg and take that every 6 hrs. His CMR reflects the same, no new script for Xanax given. Allergies: Coded Allergies: diphenhydramine (From BENADRYL) (HYPER PER PT SAYS IT FEELS LIKE BEGINNING OF A PANIC ATTACK 11/05/16) quetiapine (HYPERACTIVE, PER PT STATES HE FELT SUICIDAL 11/05/16) trazodone (WOKE UP FEELING DRUNK, HAD TO TAKE TO MUCH FOR SLEEP HELP 11/05/16) Disposition Summary Disposition Principal Diagnosis: 1. Acute altered mental status with respiratory depression from drug overdose( urine toxicology positive for cannabis and benzos ) Additional Diagnosis: 1. History of anxiety and bipolar disease 2. Hx of ankle fx 3. Plantar fascitis Discharge Disposition: home health services Discharge Instructions General Discharge Information Code Status: Full Code Patient's Diet: Regular diet Patient's Activity: As tolerated Follow-Up Instructions/Appts: Please follow-up with your PCP within 1-2 weeks after discharge Please follow-up with your psychiatrist Dr. Lucero on 11/29/16 at 4:00 pm Medications at Discharge Discharge Medications: Stop taking the following medications: Alprazolam (Alprazolam) 2 MG TABLET ORAL 4 TIMES A DAY Qty = 360 Continue taking these medications: Carisoprodol (Carisoprodol) 350 MG TABLET 1 Tablet ORAL 4 TIMES A DAY Comments: Last Taken:11/25/16 Time: 0900 Divalproex Sodium (Divalproex Sodium) 500 MG TABLET. 500 Milligram ORAL TWICE DAILY Comments: Last Taken:11/25/16 Time: 0900 Ibuprofen (Ibuprofen) 800 MG TABLET 1 Tablet ORAL TWICE DAILY Comments: Last Taken:11/25/16 Time: 0900 Oxycodone HCl (Oxycodone HCl) 10 MG TABLET 1 Tablet ORAL 4 TIMES A DAY Qty = 120 Comments: Last Taken: 11/25/16 Time: 1000 Methadone Hydrochloride (Methadone HCl) 10 MG TABLET 1 Tablet ORAL TWICE DAILY Qty = 60 Comments: Last Taken:11/25/16 TIME: 0900 Escitalopram Oxalate (Escitalopram Oxalate) 10 MG TABLET 1 Tablet ORAL DAILY Qty = 90 Comments: Last Taken:11/25/16 Time: 0900 Nicotine (Nicotine Patch) 21 MG/24 HOUR PATCH.TD24 21 Milligram On the skin DAILY Qty = 30 Comments: Last Taken: 11/24/16 Time: 0945 Start taking the following new medications: Omeprazole (Omeprazole) 20 MG CAPSULE.DR 40 Milligram ORAL DAILY BEFORE BREAKFAST Days = 30 No Refills Comments: Last Taken: 11/25/16 Time: 0530 AM Alprazolam (Xanax) 0.5 MG TABLET 1 Tablet ORAL EVERY SIX HOURS Days = 3 No Refills Instructions: PLEASE CUT THE 2 MG TABS GIVEN TO YOU BY DR. LUCERO AND CUT INTO ONE-FOURTH AND TAKE EVERY 6 HOURS Comments: Last Taken: 11/25/16 Time: 0530 AM Copies To: NIC FUCHS,RIVER; BETTY FUCHS,NONA; WILLIAM FUCHS,DYLAN
[2016-11-23] VITALS: BP 150/90
--- NOTE | 2016-11-23 06:49 | PN- Housestaff ---
See Addendum Subjective Follow-up For: AMS Resp depression from drug overdose + SI Complaints: no complaints Tele-Events Since Last Visit: none Subjective: No over night events, states he slept well. Hallucinations have ended however still admits to positive SI. Has a 1:1 sitter. Pt wants to discuss his med regiment with psychiatry. Review of Systems Constitutional: Reports: see HPI. Objective Last 24 Hrs of Vital Signs/I&O Vital Signs Date Time Temp Pulse Resp B/P Pulse O2 O2 Flow FiO2 Ox Delivery Rate 11/23 0000 98.0 64 18 150/90 96 Room Air 11/22 1603 97.8 70 19 142/88 96 Room Air 11/22 0828 97.4 61 18 138/94 95 Room Air Intake & Output 11/23 0800 11/23 0000 11/22 1600 Intake Total 480 666 620 Output Total Balance 480 666 620 Intake, Oral 480 666 620 Number 1 Bowel Movements Physical Exam General Appearance: Alert, Oriented X3, Cooperative HEENT: Atraumatic, PERRLA Neck: Supple, No JVD Cardiovascular: Regular Rate, Normal S1, Normal S2 Lungs: Clear to Auscultation, Normal Air Movement Abdomen: Normal Bowel Sounds, Soft, No Tenderness Neurological: Normal Speech, Strength at 5/5 X4 Ext, Normal Tone Extremities: No Clubbing, No Cyanosis Current Medications: Current Medications Sig/Phuong Start time Last Medication Dose Route Stop Time Status Admin Acetaminophen 650 MG .STK-MED ONE 11/22 1902 DC PO 11/22 1903 Acetaminophen 650 MG .STK-MED ONE 11/22 1426 DC PO 11/22 1427 Acetaminophen 650 MG Q4P PRN 11/21 1015 AC 11/23 PO 0610 Alprazolam 0.5 MG BID 11/27 2200 AC PO 12/04 2159 Alprazolam 0.5 MG Q8 11/26 0600 CAN PO 11/27 1401 Alprazolam 0.5 MG Q6 11/24 2000 AC PO 11/25 1801 Alprazolam 0.5 MG Q4 11/23 2200 AC PO 11/24 1401 Alprazolam 1 MG Q6 11/22 1800 AC 11/23 PO 11/23 1801 0339 Alprazolam 1 MG Q4 11/22 0200 DC 11/22 PO 11/22 1001 0933 Carisoprodol 350 MG 4 TIMES/DAY 11/22 1108 AC 11/22 PO 2146 Divalproex Sodium 500 MG BID 11/21 1000 AC 11/22 PO 2147 Enoxaparin Sodium 40 MG DAILY 11/21 1000 AC 11/22 SC 0935 Escitalopram Oxalate 10 MG DAILY 11/22 1000 AC 11/22 PO 0933 Ibuprofen 800 MG BID 11/21 1000 AC 11/22 PO 2018 Lidocaine 1 PAT DAILY 11/22 1000 AC 11/22 EXT 0934 Methadone HCl 10 MG BID 11/21 1000 AC 11/22 PO 2146 Nicotine 21 MG DAILY 11/22 1000 AC 11/22 TOP 0934 Oxycodone HCl 10 MG Q6P PRN 11/22 1000 AC 11/23 PO 0328 Oxycodone HCl 10 MG Q6 PRN 11/22 0915 DC PO Patient Medication 1 ED ONE ONE 11/22 1400 DC 11/22 Teaching ED 11/22 1401 1431 Potassium Chloride 20 MEQ ONCE ONE 11/22 0930 DC 11/22 PO 11/22 0931 0933 Orders CIWA Score (last 24 hrs): 0, 0, 1, 0 Assessment/Plan Assessment: 55-year-old gentleman with past medical history significant for HCV, pancreatitis, opioid dependance, chronic back pain (multiple back surgeries)-on methadone, bipolar disorder, seizure disorder(on Depakote), history of vasculitis(not on any treatment) recently admitted to Inpatient Psychiatry for for increasing depression and suicidal ideation and drug overdose, currently admitted with altered mental status with drug overdose. Continues to have + SI Assessment- 1. AMS 2/2 drug overdose 2. Respiratory depression 2/2 drug overdose 3. Hx of chronic back pain 4. Hx of seizures 5. Nicotine dependance 6. + SI Plan- Tele monitor DC AMS and resp depression have resolved, he did receive narcan in the ER Continue current Xanax taper per psych (Today 0.5 mg Q4) Continue psych f/u, he cannot leave AMA per psych, might need IP Psych admission Continue pain meds- oxycodone, soma and lidoderm patch Continue depakote Continue Nicotine patch Continue methadone Continue 1:1 sitter for persistent SI Problem List: 1. Drug overdose 2. Polysubstance abuse 3. Cocaine abuse 4. Abrasions of multiple sites 5. Multiple contusions 6. Bipolar disorder, unspecified Pain Ratin Pain Location: back Pain Goal: Pain 4 or less Pain Plan: per emr Tomorrow's Labs & Rationales: none
[2016-11-23 08:00] VITALS: BP 124/70
[2016-11-23 16:00] VITALS: BP 142/90
--- NOTE | 2016-11-23 16:11 | Event Note ---
Event Note Event Note: Called by pts nurse to come and evaluate the pt as he was complaining of Right ankle pain, has a hc of R ankle fx in the past. Denied any trauma to the foot today, states he was walking around the [address] and suddenly felt a shooting pain on the lateral aspect of the right foot. Complains of 5/10 ankle pain. PE- R ankle is mildly swollen when compared to the left, normal pulses, capillary refill, no sensory or motor deficits, ROM is good Plan- Xray of the right foot is ordered, Add on uric acid to AM labs, voltaren gel, elevated, Ice, he has pain meds ordered.
--- NOTE | 2016-11-23 16:59 | RADIOLOGY REPORT ---
EXAMINATION: XR FOOT, RIGHT CLINICAL INFORMATION: Swelling and pain. COMPARISON: Right ankle 12/22/2015 TECHNIQUE: AP, lateral, and oblique views of the right foot. FINDINGS: No fracture. No dislocation. No soft tissue abnormality. There is a small plantar calcaneal spur. IMPRESSION: No acute abnormality.
[2016-11-23 23:40] VITALS: BP 137/90
--- NOTE | 2016-11-24 07:32 | PN- Housestaff ---
MICHELLE FUCHS,TARIQ 11/24/16 0721: Subjective Follow-up For: AMS Resp depression from drug overdose + SI Right foot and ankle pain Complaints: no complaints Subjective: No overnight events. Still admits to positive SI. Has one-to-one sitter. Anxiously awaiting psychiatry follow-up. States that his right ankle/foot pain is a lot better when compared to yesterday, swelling has much improved. However he still has some difficulty putting weight on it. Review of Systems Constitutional: Reports: see HPI. Objective Last 24 Hrs of Vital Signs/I&O Vital Signs Date Time Temp Pulse Resp B/P Pulse O2 O2 Flow FiO2 Ox Delivery Rate 11/23 2340 97.8 67 20 137/90 97 Room Air 11/23 1600 97.1 67 18 142/90 95 Room Air 11/23 0800 97.4 65 18 124/70 92 Room Air Intake & Output 11/24 0800 11/24 0000 11/23 1600 Intake Total 480 240 620 Output Total Balance 480 240 620 Intake, Oral 480 240 620 Physical Exam General Appearance: Alert, Oriented X3, Cooperative, No Acute Distress Skin: No Rashes, No Breakdown HEENT: Atraumatic, PERRLA, EOMI Cardiovascular: Regular Rate, Normal S1, Normal S2 Lungs: Clear to Auscultation, Normal Air Movement Abdomen: Normal Bowel Sounds, Soft, No Tenderness Extremities: R foot/ ankle, swelling better than yesterday; good ROM, pulses, cap refill Current Medications: Current Medications Sig/Phuong Start time Last Medication Dose Route Stop Time Status Admin Acetaminophen 650 MG .STK-MED ONE 11/23 2005 DC PO 11/23 2006 Acetaminophen 650 MG .STK-MED ONE 11/23 1229 DC PO 11/23 1230 Acetaminophen 650 MG Q4P PRN 11/21 1015 AC 11/23 PO 2006 Alprazolam 0.5 MG BID 11/27 2199 AC PO 12/04 2159 Alprazolam 0.5 MG Q6 11/24 1999 AC PO 11/25 180 Alprazolam 0.5 MG Q4 11/23 2200 AC 11/24 PO 11/24 1401 0604 Alprazolam 1 MG Q6 11/22 1800 DC 11/23 PO 11/23 1801 1749 Carisoprodol 350 MG 4 TIMES/DAY 11/22 1108 AC 11/23 PO 2117 Diclofenac Sodium 1 SAMSON 4 TIMES/DAY 11/23 1800 AC 11/23 TOP 2117 Divalproex Sodium 500 MG BID 11/21 1000 AC 11/23 PO 2116 Enoxaparin Sodium 40 MG DAILY 11/21 1000 AC 11/23 SC 0923 Escitalopram Oxalate 10 MG DAILY 11/22 1000 AC 11/23 PO 0922 Hydromorphone HCl 1 MG ONCE ONE 11/24 0030 DC 11/24 PO 11/24 0031 0049 Ibuprofen 800 MG BID 11/21 1000 AC 11/23 PO 2116 Ketorolac 30 MG ONCE ONE 11/23 2345 CAN Tromethamine IV 11/23 2346 Lidocaine 1 PAT DAILY 11/22 1000 AC 11/23 EXT 0923 Methadone HCl 10 MG BID 11/21 1000 AC 11/23 PO 2117 Nicotine 21 MG DAILY 11/22 1000 AC 11/23 TOP 0922 Oxycodone HCl 10 MG Q6P PRN 11/22 1000 AC 11/24 PO 0348 Last 24 Hrs of Lab/Romero Results Last 24 Hrs of Labs/Mics: Laboratory Tests 11/24/16 0705: Valproic Acid Pending Orders Radiology Findings: PATIENT: RIVER GONGORA PRESENT AGE: 55 PATIENT ACCOUNT NO: [id number] : 62 LOCATION: [facility] ORDERING PHYSICIAN: MILTON MARTINEZ MD SERVICE DATE: 11/23/16- EXAM TYPE: RAD - XRY-FOOT COMPLETE, R EXAMINATION: XR FOOT, RIGHT CLINICAL INFORMATION: Swelling and pain. COMPARISON: Right ankle 12/22/2015 TECHNIQUE: AP, lateral, and oblique views of the right foot. FINDINGS: No fracture. No dislocation. No soft tissue abnormality. There is a small plantar calcaneal spur. IMPRESSION: No acute abnormality. DICTATED BY: KE BAUTISTA MD DATE/TIME DICTATED:11/23/161653 BLIND CLEANER:NAZIA DATE/TIME TRANSCRIBED:11/23/161653 CONFIDENTIAL, DO NOT COPY WITHOUT APPROPRIATE AUTHORIZATION. <Electronically signed in Other Vendor System> SIGNED BY: KE BAUTISTA MD 11/23/161658 Assessment/Plan Assessment: 55-year-old gentleman with al history significant for HCV, pancreatitis, opioid dependance, chronic back pain on methadone, bipolar disorder, seizure disorder, recently admitted to Inpatient Psychiatry for for increasing depression and suicidal ideation and drug overdose, currently admitted with altered mental status with drug overdose, which since admission has improved. Continues to have + SI. Yesterday, he did complain of right ankle pain, he has a history of injuring in the past. States the pain and swelling is a lot better when compared to yesterday, x-ray was negative Assessment- 1. AMS 2/2 drug overdose 2. Respiratory depression 2/2 drug overdose 3. Right foot/ ankle pain 4. Hx of chronic back pain 5. Hx of seizures 6. Nicotine dependance 7. + SI Plan- AMS and resp depression have resolved, he did receive narcan in the ER Continue current Xanax taper per psych; today 0.5 mg Q6, we are slowly tapering this Continue psych f/u, he cannot leave AMA per psych, might need IP Psych admission In terms of his foot pain, his x-ray was negative, he seems to have aggravated a prior injury. He does have good range of motion in his foot, normal pulses and capillary refill. He did notice alleviation of some of his symptoms by elevating, ice and topical Voltaren gel, we will continue the same Continue pain meds- oxycodone, soma and lidoderm patch Continue depakote, valproic acid level today is pending Continue Nicotine patch Continue methadone Continue 1:1 sitter for persistent SI Problem List: 1. Leg pain 2. Drug overdose 3. Polysubstance abuse 4. Cocaine abuse 5. Bipolar disorder, unspecified 6. Suicidal ideation Pain Ratin Pain Location: right foot Pain Goal: Pain 4 or less Pain Plan: per emr Tomorrow's Labs & Rationales: none BRIAN CESPEDES MD 11/24/16 1445: Attending MD Review Statement Attending Statement Attending MD Statement: examined this patient, discuss w/resident/PA/[employer]EL[employer] REPRESENTATIVES, reviewed EMR data (avail), discussed with nursing, discussed with case mgmt, reviewed images Attending Assessment/Plan: Patient is keen on leaving today. He was cleared by psych. We are awaiting his psychiatry appointment to determine the Xanax tablets to give him. His foot is much better and he is ambulating all over the room independently. We counseled him on the use of PPI with an NSAID. He has visual acuity problems and we did pastoral counselor her about seeing an multi site leasing consultant. Entire Neurological exam including his cranial nerves and his reflexes are within normal limits. I think the headache is related to his detox and I don't think he needs a repeat head CT. As I stated he is ambulating independently without any issues. I did speak to him about cessation of substance abuse and close outpatient follow-up.
[2016-11-24 08:46] VITALS: BP 137/88
--- NOTE | 2016-11-24 11:36 | Event Note ---
Event Note Event Note: I was notified by Psych PRITESH Hsu that the patient can be d/c today so long as he has an OP f/u with his Psychiatrist Dr. Herman. Pt will call today and get the appt. He did complain to psychiatry about some blurry vision since his fall; however his CT head at admission and neuro exam were within normal limits. He states at present he is ambulating w/o difficulty, states he has a headache but denies any acute changes in vision or dizziness. PE- CN 2-12 INTACT EOMI, PERRLA Sensation is intact Normal speech and gait (using walker) Visual apple and confrontation is WNL Visual acuity is intact/ WNL Will defer CT head for now, unless his MAHARAJ gets worse or he has new symptoms.
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
--- NOTE | 2016-11-24 14:11 | Patient Discharge Instructions ---
Discharge Instructions General Discharge Information You were seen/treated for: DRUG OVERDOSE SUICIDAL IDEATIONS Special Instructions: 1. PLEASE F/U WITH YOUR PCP WITHIN 1 WEEK OF D/C 2. PLEASE F/U WITH YOUR PSYCHIATRIST DR. LUCERO ON 11/29/16 AT 4:00 PM 3. PLEASE CUT YOUR 2 MG TABS OF XANAX GIVEN TO YOU BY DR. LUCERO INTO ONE- FOURTH TABS AND TAKE ONE-FOURTH (0.5 MG) EVERY 6 HOURS Diet Continue normal diet: Yes Recommended Diet: Heart Healthy Acute Coronary Syndrome Inclusion Criteria At DC or during hospital stay patient has or had the following: ACS DIAGNOSIS No Discharge Core Measures Meds if any: Prescribed or Continued at Discharge Meds if any: NOT Prescribed or Continued at Discharge Congestive Heart Failure Inclusion Criteria At DC or during hospital stay patient has or had the following: CHF DIAGNOSIS No Discharge Core Measures Meds if any: Prescribed or Continued at Discharge Meds if any: NOT Prescribed or Continued at Discharge Cerebrovascular accident Inclusion Criteria At DC or during hospital stay patient has or had the following: CVA/TIA Diagnosis No Discharge Core Measures Meds if any: Prescribed or Continued at Discharge Meds if any: NOT Prescribed or Continued at Discharge Venous thromboembolism Inclusion Criteria VTE Diagnosis No VTE Type NONE VTE Confirmed by (Test) NONE Discharge Core Measures - Per Current guidelines, there needs to be overlap - treatment for the first 5 days of Warfarin therapy. - If discharged on Warfarin prior to 5 days of - overlap therapy, the patient will need to be - assessed for post discharge needs including - *Post discharge parental anticoagulation - *Warfarin and/or parental anticoagulation education - *Follow up date to check INR post discharge At least 5 days overlap therapy as Inpatient No Meds if any: Prescribed or Continued at Discharge Note: Overlap Therapy is Warfarin and Anticoagulant Meds if any: NOT Prescribed or Continued at Discharge
[2016-11-24] MEDS ORDERED: OMEPRAZOLE20 M2 PO (14:12)
[2016-11-24] MEDS ORDERED: XANAX0.25 M1 PO (14:12)
[2016-11-24] MEDS ORDERED: XANAX0.5 M1 PO (15:06)
[2016-11-24 15:58] VITALS: BP 150/83
[2016-11-24 23:58] VITALS: BP 110/68
--- NOTE | 2016-11-25 07:26 | PN- Housestaff ---
See Addendum Subjective Follow-up For: AMS Resp depression from drug overdose + SI Right foot and ankle pain Complaints: no complaints Subjective: No overnight events, admits to sleeping well overnight. He was deemed nonsuicidal by psychiatry yesterday, subsequently a sitter was discontinued. He is currently on a taper of Xanax 0.5 mg every 6, he is to continue this until he sees his outpatient psychiatrist, Dr. George on November 29 at 4 PM. He is said to be discharged today. Review of Systems Constitutional: Reports: see HPI. Objective Last 24 Hrs of Vital Signs/I&O Vital Signs Date Time Temp Pulse Resp B/P Pulse O2 O2 Flow FiO2 Ox Delivery Rate 11/24 2358 97.8 75 20 110/68 96 Room Air 11/24 1558 97.7 63 19 150/83 96 11/24 0846 97.5 64 18 137/88 96 Room Air Intake & Output 11/25 0800 11/25 0000 11/24 1600 Intake Total 480 840 910 Output Total 450 650 Balance 480 390 260 Intake, IV 10 Intake, Oral 480 840 900 Number 0 Bowel Movements Output, Urine 450 650 Physical Exam General Appearance: Alert, Oriented X3, Cooperative, No Acute Distress HEENT: Atraumatic, PERRLA, EOMI Cardiovascular: Regular Rate, Normal S1, Normal S2 Lungs: Clear to Auscultation, Normal Air Movement Abdomen: Normal Bowel Sounds, Soft, No Tenderness Extremities: No Clubbing, No Cyanosis, No Edema Current Medications: Current Medications Sig/Phuong Start time Last Medication Dose Route Stop Time Status Admin Acetaminophen 650 MG .STK-MED ONE 11/24 1743 DC PO 11/24 1744 Acetaminophen 650 MG .STK-MED ONE 11/24 1123 DC PO 11/24 1124 Acetaminophen 650 MG Q4P PRN 11/21 1015 AC 11/24 PO 1746 Alprazolam 0.5 MG BID 11/27 2199 CAN PO 12/04 215 Alprazolam 0.5 MG Q6 11/24 1999 AC 11/25 PO 11/25 1801 0534 Alprazolam 0.5 MG Q4 11/23 2200 DC 11/24 PO 11/24 1401 1400 Carisoprodol 350 MG 4 TIMES/DAY 11/22 1108 AC 11/24 PO 2119 Diclofenac Sodium 1 SAMSON 4 TIMES/DAY 11/23 1800 AC 11/23 TOP 2117 Divalproex Sodium 500 MG BID 11/21 1000 AC 11/24 PO 211 Enoxaparin Sodium 40 MG DAILY 11/21 1000 AC 11/24 SC 0944 Escitalopram Oxalate 10 MG DAILY 11/22 1000 AC 11/24 PO 0943 Ibuprofen 800 MG BID 11/21 1000 AC 11/24 PO 11/27 Lidocaine 1 PAT DAILY 11/22 1000 AC 11/24 EXT 0944 Methadone HCl 10 MG BID 11/21 1000 AC 11/24 PO 2119 Nicotine 21 MG DAILY 11/22 1000 AC 11/24 TOP 0943 Omeprazole 40 MG DAILY AC 11/24 0856 AC 11/25 PO 0534 Oxycodone HCl 10 MG Q6P PRN 11/22 1000 AC 11/25 PO 0402 Assessment/Plan Assessment: 55-year-old gentleman with al history significant for HCV, pancreatitis, opioid dependance, chronic back pain on methadone, bipolar disorder, seizure disorder, recently admitted to Inpatient Psychiatry for for increasing depression and suicidal ideation and drug overdose, currently admitted with altered mental status with drug overdose, which since admission has improved. Yesterday, he was seen and evaluated by psychiatry who stated that he was cleared for suicidal ideations, sitter was discontinued. He is to continue on his taper of Xanax 0.5 mg every 6. Assessment- 1. AMS 2/2 drug overdose 2. Respiratory depression 2/2 drug overdose 3. Right foot/ ankle pain 4. Hx of chronic back pain 5. Hx of seizures 6. Nicotine dependance 7. + SI Plan- AMS and resp depression have resolved, he did receive narcan in the ER Continue current Xanax taper per psych; today 0.5 mg Q6 Sitter was discontinued yesterday per psychiatry In terms of his foot pain, his x-ray was negative, he states his foot pain has markedly thin alleviated Continue pain meds- oxycodone, soma and lidoderm patch Continue depakote, valproic acid level 57.5 Continue Nicotine patch Continue methadone Patient is to be discharged today, couple days prior to admission he was given 2 mg tablets of Xanax by his psychiatrist Dr. George; he was instructed to cut his 2 mg Xanax tablets into one fourth, in order to dose 0.5 mg every 6 hours. He understands these instructions. He is set to see his psychiatrist Dr. George at 4 PM on 11/29/2016 and was instructed to stay on the regiment of Xanax 0.5 mg every 6 hours until then as instructed by psychiatry at . Problem List: 1. Drug overdose 2. Polysubstance abuse 3. Cocaine abuse 4. Abrasions of multiple sites 5. Bipolar disorder, unspecified 6. Suicidal ideation Pain Ratin Pain Location: back and ankle Pain Goal: Pain 4 or less Pain Plan: per emr Tomorrow's Labs & Rationales: none
[2016-11-25 08:13] VITALS: BP 124/70
== END 2016-11-25 12:25 | DRG 917 ==
LOC: ENRESERVDT → ENRESERVTM → ERH 01:37 → 1NO 07:46 → ERHI 07:46 → ENPENDDIS 07:46 → 1NO 16:14 → 2NB 11-23 22:25
PROVIDERS: Pediatrics; Student in an Organized Health Care Education/Training Program; ADMIT Internal Medicine
DX: T42.4X1A Poisoning by benzodiazepines, accidental (unintentional), initial encounter (principal); J96.01 Acute respiratory failure with hypoxia; F13.20 Sedative, hypnotic or anxiolytic dependence, uncomplicated; F11.20 Opioid dependence, uncomplicated; R45.851 Suicidal ideations; F31.9 Bipolar disorder, unspecified; B18.2 Chronic viral hepatitis C; R56.9 Unspecified convulsions; F17.200 Nicotine dependence, unspecified, uncomplicated; M54.9 Dorsalgia, unspecified; G89.29 Other chronic pain
CPT/HCPCS: 1NP; 2NBSP; 36415; 73630-RT; 74176; 80307; 82436; 87086; 93005; 93010; 96374; 96376; 99232; G0480; J1630; J1650; J1885; J2310

== ENCOUNTER 2016-11-27 18:53 | Emergency (ER) | payer OTHER, MEDICARE ==
[~2016-11-27] VITALS: Ht 177.8 cm; Wt 81.6 kg
[~2016-11-27 18:53] MED LIST changes: +OMEPRAZOLE20 M2 PO; +XANAX0.25 M1 PO; +XANAX0.5 M1 PO
--- NOTE | 2016-11-27 20:50 | ED GENERAL ADULT ---
History of Present Illness General Chief Complaint: Fall Stated Complaint: FALL DOWN STAIRS Source: patient Exam Limitations: intoxication Vital Signs & Intake/Output Vital Signs & Intake/Output Vital Signs Date Time Temp Pulse Resp B/P Pulse O2 O2 Flow FiO2 Ox Delivery Rate 11/27 2158 97.6 86 18 148/95 97 Room Air 11/27 1903 98.6 112 18 135/93 95 Room Air Allergies Coded Allergies: diphenhydramine (From BENADRYL) (HYPER PER PT SAYS IT FEELS LIKE BEGINNING OF A PANIC ATTACK 11/05/16) quetiapine (HYPERACTIVE, PER PT STATES HE FELT SUICIDAL 11/05/16) trazodone (WOKE UP FEELING DRUNK, HAD TO TAKE TO MUCH FOR SLEEP HELP 11/05/16) Reconcile Medications Alprazolam (Xanax) 0.5 MG TABLET 1 TAB PO Q6 ANXIETY PLEASE CUT THE 2 MG TABS GIVEN TO YOU BY DR. LUCERO AND CUT INTO ONE-FOURTH AND TAKE EVERY 6 HOURS Carisoprodol 350 MG TABLET 1 TAB PO 4 TIMES/DAY MUSCLE SPASMS (Reported) Divalproex Sodium 500 MG TABLET.DR 500 MG PO BID MOOD STABILITY (Reported) Escitalopram Oxalate 10 MG TABLET 1 TAB PO DAILY MENTAL HEALTH (Reported) Ibuprofen 800 MG TABLET 1 TAB PO BID PAIN (Reported) Methadone Hydrochloride (Methadone HCl) 10 MG TABLET 1 TAB PO BID CHRONIC PAIN (Reported) Nicotine (Nicotine Patch) 21 MG/24 HOUR PATCH.TD24 21 MG TOP DAILY smoking cessation Omeprazole 20 MG CAPSULE.DR 40 MG PO DAILY AC ACID REFLUX Oxycodone HCl 10 MG TABLET 1 TAB PO 4 TIMES/DAY PAIN (Reported) Triage Note: PT TO [facility] WITH C/O PAIN ALL OVER BODY, HEADACHE CONFUSION S/P FELL DOWN 30 STAIRS 10 DAYS AGO. +HEADSTRIKE, +LOC. ALSO PT ANABLE TO WALK SINCE. PT WAS SEEN AT [facility] RIGHT AFTER FALL. Triage Nurses Notes Reviewed? yes Onset: Gradual Duration: day(s): (1) Timing: recent history Injury Environment: home Severity: moderate No Modifying Factors: none HPI: Patient is a 55-year-old male with history of bipolar, polysubstance abuse presenting to the emergency department with chief complaint of fall yesterday, hitting his head on a doorway, he reports that he was knocked unconsciousness, not sure for how long because "I didn't have a clot.". Patient reports that he was seen and evaluated here approximately one week ago for a fall down multiple stairs and evaluated and had imaging done and everything came back okay. He's had a difficult time concentrating since the initial fall but the fall yesterday made things worse. Denies any blurred vision. Denies any alcohol use. He does report history of polysubstance abuse, denies any acute use of drugs. Denies any urinary incontinence or retention. He reports that he has pain "all over". Denies any specific pain over any specific location. Denies abdominal pain. No nausea or vomiting. Nothing seems to make his symptoms better or worse. Denies fevers. (CHIDI DENTON) Past History Travel History Traveled to [place] past 21 day No Medical History Any Pertinent Medical History? see below for history Neurological: migraine, seizure (also has some gait problems), SCIATICA TBI EENT: EYE SURGERY Cardiovascular: NONE Respiratory: NONE Gastrointestinal: pancreatitis Hepatic: hepatitis C Renal: NONE Musculoskeletal: chronic back pain, disk herniation, falls, fracture, BROKEN RIGHT FOOT hx skull and jaw fx's Psychiatric: alcohol dependence (in remission), anxiety, bipolar disease, chronic pain disorder, depression, opioid dependence (opioid pain management), substance abuse (hx alcohol and drug abuse), PANIC ATTACKS benzodiazepine abuse opiate pain management Endocrine: NONE Blood Disorders: NONE Cancer(s): NONE 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 History of MRSA: No History of VRE: No History of CDIFF: No Influenza Vaccine: 08/17/16 Surgical History Surgical History: NECK, SKULL Psychosocial History Who do you live with Patient/Self Services at Home None What is your primary language Iraqi Tobacco Use: Current Daily Use Daily Tobacco Use Amount/Type: => 5 Cigarettes daily ETOH Use: denies use Illicit Drug Use: denies illicit drug use Family History Family History, If Any: No Known Family History. Hx Contributory? No (CHIDI DENTON) Review of Systems Review of Systems Constitutional: Reports: weakness. Comments Review of systems: See HPI, All other systems negative. Constitutional, no chills fever or weight loss HEENT: No visual changes no sore throat no congestion Cardiovascular: No chest pain ,palpitation , orthopnea or ankle swelling Skin, no jaundice no rashes Respiratory: No dyspnea cough sputum or hemoptysis GI: No nausea no vomiting : No dysuria No hematuria Muscle skeletal: no back pain, no neck pain, Neurologic: No numbness Psych: No increased stress anxiety or depression,. Heme/endocrine: No bruising no bleeding no polyuria or polydipsia Immunology: No splenectomy or history of AIDS (CHIDI DENTON) Physical Exam Physical Exam General Appearance: well developed/nourished, no apparent distress, awake, comfortable, intoxicated Comments: Well-developed well-nourished person in no acute distress HEENT: extraocular motion intact, no nystagmus. Pupils equally round and reactive to light and accommodation. Pupils are 4 mm bilaterally. Nose is atraumatic. External auditory canal and Tympanic membranes clear. Pharynx normal. No swelling or edema. Neck: Supple, no lymphadenopathy, normal range of motion without pain or tenderness, no C-spine tenderness. No paraspinal muscle tenderness. Back: Tender to palpation over the lumbar paraspinal region. No bony tenderness. Full range of motion. Negative straight leg raise bilaterally. Cardiovascular: Regular rate and rhythms no murmurs rubs or gallops, normal JVP Respiratory: Chest nontender. No respiratory distress.breath sounds clear to auscultation bilaterally Abdomen: Soft, nontender nondistended, no appreciable organomegaly. Normal bowel sounds. No ascites Extremity: No edema, distal pulses are intact in all 4 extremity's. Full range of motion of upper and lower sherries without difficulty or pain. Muscular strength is 5 out of 5 in all extremity's. Neuro: Alert oriented x3, motor sensory normal, cranial nerves II through XII grossly intact. Skin: No appreciable rash on exposed skin, skin is warm and dry. Psych: Intoxicated Core Measures ACS in differential dx? Yes CVA/TIA Diagnosis: No Severe Sepsis Present: No Septic Shock Present: No (CHIDI DENTON) Progress Differential Diagnoses I considered the following diagnoses in my evaluation of the patient: Polysubstance abuse, alcohol intoxication, intracranial hemorrhage, cervical spine fracture, multifactorial gait disorder, medication noncompliance Plan of Care: Orders Procedure Date/time Status Add-on Test (ER Only) 11/27 2225 Active EKG 11/27 2215 Active TROPONIN LEVEL 11/27 2123 Complete URINE DRUG SCREEN FOR ER ONLY 11/27 2049 Complete ETHANOL 11/27 2049 Complete COMPREHENSIVE METABOLIC PANEL 11/27 2049 Complete CBC WITHOUT DIFFERENTIAL 11/27 2049 Complete Laboratory Tests 11/27/162233: Urine Opiates Screen 197.00, Methadone Screen 174, Barbiturate Screen < 60, Ur Phencyclidine Scrn < 6.00, Amphetamines Screen < 100, U Benzodiazepines Scrn > 800 H, Urine Cocaine Screen 154, Urine Cannabis Screen < 5.00 11/27/162123: Anion Gap 10, Estimated GFR > 60, BUN/Creatinine Ratio 15.0, Glucose 95, Calcium 8.7, Total Bilirubin 0.8, AST 37, ALT 61, Alkaline Phosphatase 73, Troponin I < 0.01, Total Protein 7.2, Albumin 3.8, Globulin 3.4, Albumin/Globulin Ratio 1.1, CBC w Diff NO MAN DIFF REQ, RBC 3.75 L, MCV 89.5, MCH 29.8, RDW 17.1 H, MPV 7.7, Gran % 68.6, Lymphocytes % 21.7, Monocytes % 6.4, Eosinophils % 2.5, Basophils % 0.8, Absolute Granulocytes 3.9, Absolute Lymphocytes 1.2, Absolute Monocytes 0.4, Absolute Eosinophils 0.1, Absolute Basophils 0, PUBS MCHC 33.3, Serum Alcohol < 10.0 Diagnostic Imaging: Viewed by Me: Radiology Read, CT Scan. Discussed w/RAD: Radiology Read, CT Scan. Radiology Impression: ATIENT: RIVER GONGORA PRESENT AGE: 55 PATIENT ACCOUNT NO: [id number] : 62 LOCATION: [facility] ORDERING PHYSICIAN: CHIDI SWANSON SERVICE DATE: 11/27/16-2049 EXAM TYPE: CAT - CT CERV SPINE WO IV CONTRAST; CT HEAD WO IV CONTRAST EXAMINATION: CT OF THE HEAD AND CERVICAL SPINE WITHOUT CONTRAST CLINICAL INFORMATION: Fall and loss of consciousness. COMPARISON: Recent prior study from 11/21/2016. TECHNIQUE : Contiguous axial imaging was performed from the skull base to vertex. Soft tissue and bony algorithms were evaluated. Coronal reformatted images were obtained on the technologist workstation. Following this, multiple serial thin slice helical CT scan images through the cervical spine were obtained. Soft tissue and bony algorithms were evaluated. Coronal and sagittal reformatted images were obtained on the technologist workstation. DLP: 959 mGy cm FINDINGS: Head CT: The ventricles are normal in size and symmetry. There is no evidence of acute intracranial hemorrhage or territorial infarction. No abnormal mass-effect or midline shift is seen. Calixto to white matter differentiation is well preserved. No extra-axial fluid collections are identified. There is no abnormal attenuation within the brain parenchyma. The osseous structures and soft tissues are normal. The mastoid air cells and visualized portions of the paranasal sinuses are well-aerated. Cervical spine CT: No prevertebral soft tissue swelling is appreciated. The bones are in normal anatomic alignment with no acute fracture or spondylolisthesis. Status post anterior plate and screw fixation from C5 to C7. Vertebral body heights and disc heights are otherwise preserved. Posterior elements are unremarkable. Visualized airway and lung apices are unremarkable. Visualized thyroid gland unremarkable. IMPRESSION: Head CT: No acute intracranial pathology. C-spine: No acute bony abnormality in the cervical spine. Status post anterior fusion C5-C7. DICTATED BY: RIVER ELAINE MD DATE/TIME DICTATED:11/27/162210 DIRECTOR OF INSTITUTIONAL RESEARCH:NAZIA DATE/TIME TRANSCRIBED:11/27/162210 CONFIDENTIAL, DO NOT COPY WITHOUT APPROPRIATE AUTHORIZATION. <Electronically signed in Other Vendor System> SIGNED BY: RIVER ELAINE MD 11/27/162216 Initial ED EKG: NSR Hand-Off Endorsed To: MARIANELA VILLA MD Endorsed Time: 2306 Pending: other Comments: 11/27/2016 11:07:15 PM will be signed out to Dr. Villa pending reevaluation, patient sobering up, benzos are elevated in urine drug screen. (CHIDI DENTON) Departure Departure Disposition: HOME OR SELF CARE Condition: Stable Clinical Impression Primary Impression: Benzodiazepine abuse Referrals: ISABELLE MORA MD (PCP/Family) Additional Instructions: Follow-up with your primary care physician call to make an appointment. Avoid using medications inappropriately. Departure Forms: Customer Survey General Discharge Information (CHIDI DENTON) PA/CLARITY DEVELOPER Co-Sign Statement Statement: ED Attending supervision documentation- [] I saw and evaluated the patient. I have also reviewed all the pertinent lab results and diagnostic results. I agree with the findings and the plan of care as documented in the PA's/CLARITY DEVELOPER's documentation. [x] I have reviewed the ED Record and agree with the PA's/CLARITY DEVELOPER's documentation. [] Additions or exceptions (if any) to the PAs/CLARITY DEVELOPER's note and plan are summarized below: [] (KAYLIN FUCHS,MARIANELA Johnson) Critical Care Note Critical Care Note Critical Care Time: non-applicable (TOMASA SWANSON,CHIDI)
[2016-11-27 21:33] LABS: ABSOLUTE BASOPHIL COUNT 0 /CUMM (0.0-0.2); ABSOLUTE EOSINOPHIL COUNT 0.1 /CUMM (0.0-0.7); ABSOLUTE GRANULOCYTE CT 3.9 /CUMM (1.4-6.5); ABSOLUTE LYMPH COUNT 1.2 /CUMM (1.2-3.4); ABSOLUTE MONOCYTE COUNT 0.4 /CUMM (0.10-0.60); BASOPHIL % 0.8 % (0.0-2.0); EOSINOPHIL % 2.5 % (0-5); GRANULOCYTE % 68.6 % (42.2-75.2); HEMATOCRIT 33.5 % (42-52); MEAN CORPUSCULAR HGB 29.8 PG (27.0-31.0); MEAN CORPUSCULAR HGB CONC 33.3 G/DL (33.0-37.0); MEAN CORPUSCULAR VOLUME 89.5 FL (80.0-94.0); MEAN PLATELET VOLUME 7.7 FL (7.4-10.4); PLATELET COUNT 142 /CUMM (130-400); RBC DISTRIBUTION WIDTH 17.1 % (11.5-14.5); RED BLOOD CELL CT 3.75 /CUMM (4.70-6.10)
[2016-11-27 21:34] LABS: WHITE BLOOD CELL COUNT 5.8 /CUMM (4.8-10.8)
--- NOTE | 2016-11-27 22:17 | CT SCAN REPORT ---
EXAMINATION: CT OF THE HEAD AND CERVICAL SPINE WITHOUT CONTRAST CLINICAL INFORMATION: Fall and loss of consciousness. COMPARISON: Recent prior study from 11/21/2016. TECHNIQUE: Contiguous axial imaging was performed from the skull base to vertex. Soft tissue and bony algorithms were evaluated. Coronal reformatted images were obtained on the technologist workstation. Following this, multiple serial thin slice helical CT scan images through the cervical spine were obtained. Soft tissue and bony algorithms were evaluated. Coronal and sagittal reformatted images were obtained on the technologist workstation. DLP: 959 mGy cm FINDINGS: Head CT: The ventricles are normal in size and symmetry. There is no evidence of acute intracranial hemorrhage or territorial infarction. No abnormal mass-effect or midline shift is seen. Calixto to white matter differentiation is well preserved. No extra-axial fluid collections are identified. There is no abnormal attenuation within the brain parenchyma. The osseous structures and soft tissues are normal. The mastoid air cells and visualized portions of the paranasal sinuses are well-aerated. Cervical spine CT: No prevertebral soft tissue swelling is appreciated. The bones are in normal anatomic alignment with no acute fracture or spondylolisthesis. Status post anterior plate and screw fixation from C5 to C7. Vertebral body heights and disc heights are otherwise preserved. Posterior elements are unremarkable. Visualized airway and lung apices are unremarkable. Visualized thyroid gland unremarkable. IMPRESSION: Head CT: No acute intracranial pathology. C-spine: No acute bony abnormality in the cervical spine. Status post anterior fusion C5-C7.
[2016-11-27 23:56] VITALS: BP 144/89
== END 2016-11-28 01:15 ==
LOC: ERH 18:53
PROVIDERS: Physician Assistant
DX: F13.10 Sedative, hypnotic or anxiolytic abuse, uncomplicated (principal); M54.5 Low back pain; W19.XXXA Unspecified fall, initial encounter
CPT/HCPCS: 80307; 93005; 93010; G0480

== ENCOUNTER 2016-12-14 18:57 | Inpatient (IN) | payer OTHER, MEDICARE ==
[~2016-12-14] VITALS: Ht 177.8 cm; Wt 90.7 kg
--- NOTE | 2016-12-14 19:06 | NUR ---
Informed waiting has been performed.
--- NOTE | 2016-12-14 19:06 | NUR ---
TRIAGE: PT TO ER C/C DEPRESSION AND +SI. "I KEEP SAYING HANGING MYSELF BUT I DON'T HAVE THE BALLS TO DO IT. I TRIED PILLS IN THE PAST BUT I KEEP WAKING UP. IF I SAY GUN YOU'RE GONNA CHECK MY ROOM FOR GUNS WHICH I HAVE NONE." DENIES DAILY DRINKING BUT STATES HE DRANK TODAY, 1 SHOT OF VODKA. ALSO REPORTS CONCERN OVER BRUISING TO ABDOMEN, DENIES ANY RECENT INJURY. COMPLAINS OF CHRONIC PAINS TO LEGS, BACK, NECK, AND L ARM WHICH IS CHRONIC X YEARS. TAKES 10 MG OXYCODONE X 4, SOMA X 4 AND METHADONE BID FOR SAME.
--- NOTE | 2016-12-14 19:15 | ED PSYCHIATRIC COMPLAINT ---
History of Present Illness General Chief Complaint: Psychiatric Related Complaint Stated Complaint: DEPRESSION +SI Source: patient, old records Exam Limitations: no limitations Vital Signs & Intake/Output Vital Signs & Intake/Output Vital Signs Date Time Temp Pulse Resp B/P Pulse O2 O2 Flow FiO2 Ox Delivery Rate 12/15 1049 98.6 88 20 140/90 95 Room Air 12/15 0625 97.6 81 20 146/93 98 Room Air 12/14 2319 97.5 76 16 120/69 96 Room Air 12/14 2005 Room Air 12/14 1901 97.6 110 22 160/105 98 Room Air ED Intake and Output 12/15 0000 12/14 1200 Intake Total 8 Output Total Balance 8 Intake, Oral 8 Patient 200 lb Weight Allergies Coded Allergies: diphenhydramine (From BENADRYL) (HYPER PER PT SAYS IT FEELS LIKE BEGINNING OF A PANIC ATTACK 12/14/16) quetiapine (HYPERACTIVE, PER PT STATES HE FELT SUICIDAL 12/14/16) trazodone (WOKE UP FEELING DRUNK, HAD TO TAKE TO MUCH FOR SLEEP HELP 12/14/16) Reconcile Medications Alprazolam (Xanax) 0.5 MG TABLET 1 TAB PO Q6 ANXIETY PLEASE CUT THE 2 MG TABS GIVEN TO YOU BY DR. LUCERO AND CUT INTO ONE-FOURTH AND TAKE EVERY 6 HOURS Carisoprodol 350 MG TABLET 1 TAB PO 4 TIMES/DAY MUSCLE SPASMS (Reported) Divalproex Sodium 500 MG TABLET.DR 500 MG PO BID MOOD STABILITY (Reported) Escitalopram Oxalate 10 MG TABLET 1 TAB PO DAILY MENTAL HEALTH (Reported) Ibuprofen 800 MG TABLET 1 TAB PO BID PAIN (Reported) Methadone Hydrochloride (Methadone HCl) 10 MG TABLET 1 TAB PO BID CHRONIC PAIN (Reported) Nicotine (Nicotine Patch) 21 MG/24 HOUR PATCH.TD24 21 MG TOP DAILY smoking cessation Omeprazole 20 MG CAPSULE. 40 MG PO DAILY AC ACID REFLUX Oxycodone HCl 10 MG TABLET 1 TAB PO 4 TIMES/DAY PAIN (Reported) Triage Note: TRIAGE: PT TO ER C/C DEPRESSION AND +SI. "I KEEP SAYING HANGING MYSELF BUT I DON'T HAVE THE BALLS TO DO IT. I TRIED PILLS IN THE PAST BUT I KEEP WAKING UP. IF I SAY GUN YOU'RE GONNA CHECK MY ROOM FOR GUNS WHICH I HAVE NONE." DENIES DAILY DRINKING BUT STATES HE DRANK TODAY, 1 SHOT OF VODKA. ALSO REPORTS CONCERN OVER BRUISING TO ABDOMEN, DENIES ANY RECENT INJURY. COMPLAINS OF CHRONIC PAINS TO LEGS, BACK, NECK, AND L ARM WHICH IS CHRONIC X YEARS. TAKES 10 MG OXYCODONE X 4, SOMA X 4 AND METHADONE BID FOR SAME. Triage Nurses Notes Reviewed? yes HPI: Patient presents with increasing depression and suicidal thoughts but no plan. Patient states that he has been housebound for the past month because he is had no desire to go outside and see anybody. Patient states that his friend to bring him food to eat. Patient states he has been taking his medications as prescribed. Patient denies coingestions. Patient denies any homicidal ideations. Patient denies any hallucinations. (SHANT FUCHS,JEANNA Carlos) Past History Travel History Traveled to [place] past 21 day No Medical History Any Pertinent Medical History? see below for history Neurological: migraine, seizure (also has some gait problems), SCIATICA TBI EENT: EYE SURGERY Cardiovascular: NONE Respiratory: NONE Gastrointestinal: pancreatitis Hepatic: hepatitis C Renal: NONE Musculoskeletal: chronic back pain, disk herniation, falls, fracture, BROKEN RIGHT FOOT hx skull and jaw fx's Psychiatric: alcohol dependence (in remission), anxiety, bipolar disease, chronic pain disorder, depression, opioid dependence (opioid pain management), substance abuse (hx alcohol and drug abuse), PANIC ATTACKS benzodiazepine abuse opiate pain management Endocrine: NONE Blood Disorders: NONE Cancer(s): NONE 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 History of MRSA: No History of VRE: No History of CDIFF: No Surgical History Surgical History: NECK, SKULL Psychosocial History Who do you live with Patient/Self Services at Home None What is your primary language [place] Tobacco Use: Current Daily Use Daily Tobacco Use Amount/Type: => 5 Cigarettes daily ETOH Use: occasional use Illicit Drug Use: denies illicit drug use Family History Family History, If Any: No Known Family History. Hx Contributory? No (SHANT FUCHS,JEANNA Carlos) Review of Systems Review of Systems Constitutional: Reports: no symptoms. EENTM: Reports: no symptoms. Respiratory: Reports: no symptoms. Cardiovascular: Reports: no symptoms. GI: Reports: no symptoms. Genitourinary: Reports: no symptoms. Musculoskeletal: Reports: no symptoms. Skin: Reports: no symptoms. Neurological/Psychological: Reports: see HPI, depressed. Hematologic/Endocrine: Reports: no symptoms. Immunologic/Allergic: Reports: no symptoms. All Other Systems: Reviewed and Negative (SHANT FUCHS,JEANNA Carlos) Physical Exam Physical Exam General Appearance: well developed/nourished, mild distress Head: atraumatic Eyes: Bilateral: PERRL, EOMI. Ears, Nose, Throat: normal pharynx, normal ENT inspection, hearing grossly normal Neck: normal inspection, supple Respiratory: normal breath sounds Cardiovascular: regular rate/rhythm Gastrointestinal: soft, non-tender Extremities: normal range of motion Neurological/Psychiatric: no motor/sensory deficits, awake, alert, calm, oriented x 3 Appearance/Memory/Insight: appropriate appearance, appropriate insight Behavoir/Eye Contact/Speech: cooperative, normal speech, good eye contact Thoughts/Hallucinations: normal thought pattern, no apparent hallucination Skin: intact, normal color, warm/dry SAD PERSONS Done? CRISIS CONSULT OBTAINED (SHANT FUCHS,JEANNA Carlos) Progress Differential Diagnosis: drug intoxication, drug overdose, drug withdrawal, electrolyte abnormality Plan of Care: Orders Procedure Date/time Status VALPROIC ACID 12/18 0600 Active Regular Diet 12/15 D Active Regular Diet 12/15 B Complete Admit to inpatient psych 12/15 1204 Active Lab Add-on Test 12/15 1147 Active Patient Data - inpatient psych 12/15 1142 Active Admit to inpatient psych 12/15 1142 Active Continuous Observation Monitor 12/15 0729 Active Vital Signs 12/15 UNK Active Nursing Misc 12/15 UNK Active CIWA 12/15 UNK Active Alternative Nursing Therapy 12/15 UNK Active Activity/Ambulation 12/15 UNK Active THYROID STIMULATING HORMONE 12/14 2000 Active Add-on Test (ER Only) 12/14 1937 Active Continuous Observation Monitor 12/14 1913 Active URINE DRUGS OF ABUSE 12/14 1913 Complete TROPONIN LEVEL 12/14 1913 Active ETHANOL 12/14 1913 Active DEPAKOTE LEVEL 12/14 1913 Active COMPREHENSIVE METABOLIC PANEL 12/14 1913 Active CBC WITHOUT DIFFERENTIAL 12/14 1913 Complete EKG 12/14 1913 Active ED CRISIS PSYCH CONSULT 12/14 1913 Active Vital Signs 12/14 UNK Complete Activity/Ambulation 12/14 UNK Complete Current Medications Sig/Phuong Start time Last Medication Dose Stop Time Status Admin Alprazolam 2 MG FOUR TIMES A DAY 12/15 1400 UNVr (Xanax) 12/22 1359 Lorazepam 2 MG Q2P PRN 12/15 1200 UNVr (Ativan) Lorazepam 1 MG Q2P PRN 12/15 1200 UNVr (Ativan) Divalproex Sodium 500 MG BID 12/15 1149 UNVr (Depakote) Nicotine 21 MG DAILY 12/15 1149 UNVr (Nicoderm) Folic Acid 1 MG DAILY 12/15 1146 UNVr (Folic Acid) 12/17 1001 Multivitamins 1 TAB DAILY 12/15 1146 UNVr (Theragran Vitamins) Thiamine HCl 100 MG DAILY 12/15 1146 UNVr (Vitamin B1) 12/17 1001 Laboratory Tests 12/14/16 2017: Urine Opiates Screen < 100.00, Methadone Screen < 40, Barbiturate Screen < 60, Ur Phencyclidine Scrn < 6.00, Amphetamines Screen < 100, U Benzodiazepines Scrn < 85, Urine Cocaine Screen < 50, Urine Cannabis Screen < 5.00 12/14/162000: Anion Gap 12, Estimated GFR > 60, BUN/Creatinine Ratio 17.1, Glucose 83, Calcium 8.7, Total Bilirubin 0.5, AST 48, ALT 96 H, Alkaline Phosphatase 102, Troponin I < 0.01, Total Protein 7.1, Albumin 4.0, Globulin 3.1, Albumin/Globulin Ratio 1.3, TSH Pending, CBC w Diff NO MAN DIFF REQ, RBC 4.27 L, MCV 89.8, MCH 30.2, RDW 15.6 H, MPV 8.6, Gran % 69.0, Lymphocytes % 23.1, Monocytes % 4.4, Eosinophils % 2.7, Basophils % 0.8, Absolute Granulocytes 5.9, Absolute Lymphocytes 2.0, Absolute Monocytes 0.4, Absolute Eosinophils 0.2, Absolute Basophils 0.1, PUBS MCHC 33.7, Valproic Acid < 10.0 L, Serum Alcohol 21.0 Initial ED EKG: NSR, no ST T wave changes Prior EKG: unchanged Hand-Off Endorsed To: KAYLIN FUCHS,MARIANELA Johnson Endorsed Time: 2299 Pending: consult (RE-EVAL) Comments: Patient was due to be admitted to Inpatient Psychiatry voluntarily. Patient became agitated and through his glasses across the room and became verbally aggressive towards staff. At this point Inpatient Psychiatry wants to stay in the emergency department for reevaluation in the morning. (SHANT FUCHS,JEANNA Carlos) Hand-Off Endorsed To: MALLORY MILLER MD Endorsed Time: 0700 Pending: consult (KAYLIN FUCHS,MARIANELA Johnson) Comments: 12/15/2016 07:00 pt signed out to me by dr dominguez. (MALLORY MILLER MD) Departure Departure Disposition: STILL A PATIENT Condition: Stable Referrals: ISABELLE MORA MD (PCP/Family) Departure Forms: Customer Survey General Discharge Information (JEANNA BRAN MD) Departure Clinical Impression Primary Impression: Bipolar 1 disorder Psych Admission Note Psychiatric Admission: I have seen and evaluated RIVER GONGORA. I have also reviewed all the pertinent lab results and diagnostic results. RIVER GONGORA will be admitted to our inpatient Psychiatric unit for treatment and care. (MALLORY MILLER MD)
--- NOTE | 2016-12-14 19:27 | ED PSY CRISIS COLLATERAL NOTE ---
Collateral Note Collateral Note Family/Inform/[place] Contacts: SW attempted to gain collateral information, from the patients next of kin [place] ([phone]). The phone number was was not accepting calls and there was no voicemail to leave a message.
--- NOTE | 2016-12-14 19:36 | NUR ---
TRIAGE NOTE ACKNOWLEDGED AND RN CARE ASSUMED PT BOUGHT TO ROOM # [address] BRAN SECURITY CALLED TO [facility].
--- NOTE | 2016-12-14 20:00 | NUR ---
C/O ALL OVER BODY PAIN, WANTS SOME NARCOTICS, ADV NOT YET, STATES I WANT TO LEAVE , THIS NURSE ADV NOT LEAVING DUE TO COMMENTS OF SI AND A PLAN BEING MADE, WANTS NARCOTICS
[2016-12-14 20:21] LABS: ABSOLUTE BASOPHIL COUNT 0.1 /CUMM (0.0-0.2); ABSOLUTE EOSINOPHIL COUNT 0.2 /CUMM (0.0-0.7); ABSOLUTE GRANULOCYTE CT 5.9 /CUMM (1.4-6.5); ABSOLUTE MONOCYTE COUNT 0.4 /CUMM (0.10-0.60); BASOPHIL % 0.8 % (0.0-2.0); EOSINOPHIL % 2.7 % (0-5); HEMATOCRIT 38.4 % (42-52); MEAN CORPUSCULAR HGB 30.2 PG (27.0-31.0); MEAN CORPUSCULAR HGB CONC 33.7 G/DL (33.0-37.0); MEAN CORPUSCULAR VOLUME 89.8 FL (80.0-94.0); MEAN PLATELET VOLUME 8.6 FL (7.4-10.4); PLATELET COUNT 192 /CUMM (130-400); RBC DISTRIBUTION WIDTH 15.6 % (11.5-14.5); RED BLOOD CELL CT 4.27 /CUMM (4.70-6.10); WHITE BLOOD CELL COUNT 8.5 /CUMM (4.8-10.8)
--- NOTE | 2016-12-14 21:30 | NUR ---
CONTINUES TO WANT SOMA OR WILL LEAVE, SECURITY CALLED PT THEN STATES I DONT WANT TO LEAVE, SECURITY NEAR
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
--- NOTE | 2016-12-14 21:50 | NUR ---
WANTING A HIERARCHY TO SPEAK WITH, ALEX YEH CHARGE NURSE
--- NOTE | 2016-12-14 22:18 | NUR ---
While AFSHAN was working on admission paperwork, the patient became increasingly agitated and began to throw things and yell at the RN. AFSHAN discussed with charge nurse from [facility], Dr. Torres and nursing communications supervisor Aura and it was decicided that the patient would stay in the ED overnight and be admitted in the AM. AFSHAN spoke with the patient and informed him of the plan, he verbalized understanding and states that he will maintain behavioral control and apologized.
--- NOTE | 2016-12-15 | NUR ---
SLEPING AT THIS TIME
--- NOTE | 2016-12-15 01:05 | NUR ---
AWAKE REQUESTING PAIN MEDS. ROXICODONE GIVEN ORDERED.
--- NOTE | 2016-12-15 01:35 | NUR ---
REMAINS AWAKE. STATES "HE IS UNABLE TO SLEEP BECAUSE HE'S AFRAID HE'LL HAVE NIGHTMARES" DR EWING AWARE.
--- NOTE | 2016-12-15 01:47 | NUR ---
ATIVAN GIVEN ORDERED. LIGHTS TURNED OFF. SITTER AT DOOR.
--- NOTE | 2016-12-15 03:30 | NUR ---
sleeping at this time sitter at door
--- NOTE | 2016-12-15 05:10 | NUR ---
AWAKE CO "PAIN ALL OVER. STATES "I HAVE ALL OF THESE RODS IN MY NECK AND BACK AND THEY ARE KILLING MY LYING ON THIS CARDBOARD BED" REQUESTING JOSH. DR EWING AWARE.
--- NOTE | 2016-12-15 07:15 | NUR ---
ASSUMED CARE OF PT WHO IS CURRENTLY SLEEPING. RR EVEN AND UNLABORED. PT PREVIOUSLY ATE BREAKFAST TRAY. SITTER REMAINS AT DOORWAY. WILL CTM
--- NOTE | 2016-12-15 09:46 | NUR ---
PT MEDICATED WITH [employer] MED[employer]. STATES HE IS FEELING ANXIOUS AND NEEDS ATIVAN. DR MILLER MADE AWARE. PT WAS SLEEPING AND SNORING WHEN THIS KNOT PICKER CLOTH WENT IN TO GIVE HIM HIS MEDICATION, HAD TO BE WOKEN UP
--- NOTE | 2016-12-15 12:09 | NUR ---
PT MEDICATED WITH FOLIC ACID, MULTIVITAMIN, VITAMIN B1, ROXICODONE 10MG FOR PAIN AND NICODERM PATCH 21MG TO RIGHT UPPER ARM. PT REQUESTING XANAX FOR ANXIETY.
--- NOTE | 2016-12-15 12:41 | NUR ---
PT MEDICATED WITH XANAX 2MG AND DEPAKOTE 500MG PO
--- NOTE | 2016-12-15 12:53 | NUR ---
CONFIRMED ALLERGIES WITH PT.
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
--- NOTE | 2016-12-15 15:22 | IP INCIDENTAL NOTE PSYCH ---
Incidental Note Notation: I met with the patient today while he was in the emergency department. He stated "things have not been going well. I haven't been able to take my medications because I'm so depressed. I'm suicidal." States that he has been isolating at home, and had not been out of this room for 30 days. His sister has been bringing him meals. He further states that he recently fell down 30 steps, and hurt himself. He cannot recall when this happened. During our visit he was often tearful, with a depressed mood and sad affect. I informed the patient that while he was still a patient in the Emergency Department and in Crisis, we are obligated to be in touch with his medical providers and sheriff officer to collect collateral information to assure safety and continuity of care. At that time the patient became very angry. He then agreed to sign disclosure wavers, stating "at least let me have the dignity of signing by myself." I told him that the social work specialist would be in soon to have him sign. I discussed this case with his ER nurse, the ER attending physician Dr. Le, and the ER Oncology Consultant, Zach Machado.
[2016-12-15 15:46] VITALS: BP 123/63
[2016-12-15 15:47] VITALS: BP 123/63
--- NOTE | 2016-12-15 16:46 | NUR ---
PT IS PLEASANT, CALM, COOPERATIVE, NO ISSUES REPORTED OR OBSERVED, MOOD STABLE WITH CONSTRICTED AFFECT, REPORTS MOTIVATION FOR "GETTING LIFE TOGETHER", WHEN ASKED DIRECTLY DENIES SI/HI/HALLUCINATIONS AND FEELS SAFE ON THE UNIT & WOULD NOT ATTEMPT TO HARM SELF. PT HAS + APPETITE, CURRENTLY TAKING A NAP POST-ADMISSION INTAKE AND WHEN AMBULATING HAS A SLOW AND STEADY GAIT WITH WALKER. MEDICATIONS RECONCILED WITH PT. SKIN THAT IS VISIBLE TO THIS ROOM DESIGNER IS CLEAN, DRY AND INTACT AND THE PT ONLY REPORTED ONE AREA OF ALTERATION TO SKIN/BODY (THAT IS NOT VISIBLE) AND THAT IS ON THE CENTRAL ABDOMEN DIRECTLY UNDER THAT SPREADS LEFT AND LATERAL TO THE UMBILICUS, MEASURING APPROX 4 INCHES LATERAL AND 3 INCHES WIDTH, PER PT JUST NOTICED THIS BRUISE YESTERDAY AND APPEARS TO BE WNL OF HEALING, PURPLISH IN COLOR CURRENTLY AND ALSO CONGRUENT WITH NOTES FROM THE ER/CRISIS REPORT WHERE IT DOCUMENTS THAT DR. BRAN IS AWARE, NO COMPLAINTS RE: THIS BRUISE EITHER. DR. ZAMORA NOTIFIED FOR H&P @ 1573.
[2016-12-15 17:44] VITALS: BP 141/89
[2016-12-15 19:54] VITALS: BP 140/88
[2016-12-15 20:05] VITALS: BP 140/88
--- NOTE | 2016-12-15 22:36 | NUR ---
PT IS VISIBLE ON UNIT BUT HAS MINIMAL INTERACTION WITH PEERS OR STAFF DUE TO SLEEPING IN LOUNGE CHAIRS. PT IS LETHARGIC AND FALLS ASLEEP WHILE STANDING WAITING FOR MEDS. PT DID ATTEND WRAP UP MEETING BUT WAS FALLING ASLEEP DURING GROUP AND HAD A HARD TIME STAYING FOCUSED. PT REFUSED AA. PT COMPLAINING OF LEG PAIN. VERBALIZED SI UPON ADMISSION BUT CONTRACTED FOR SAFETY WHILE BEING ON UNIT. PT HAS A STABLE MOOD AND CONSTRICTED AFFECT.
[2016-12-15 23:46] VITALS: BP 89/50
[2016-12-16 02:36] VITALS: BP 136/79
[2016-12-16 05:32] VITALS: BP 114/67
--- NOTE | 2016-12-16 06:09 | NUR ---
PT INITIALLY SLEEPING WELL. PT WAS IRRITATED HE WAS AWOKEN AT 0200 FOR CIWA ASSESSMENT. PT SLEPT IN LOUNGE CHAIR [phone]. PT RETURNED TO ROOM, PUSHED WALKER OVER, THEN RETURNED TO SLEEP. PT UP AT 0545- MOTRIN 800 GIVEN. PT SEEKING MEDS.
[2016-12-16 07:17] VITALS: BP 129/80
[2016-12-16 07:19] VITALS: BP 129/80
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
--- NOTE | 2016-12-16 11:11 | SOCIAL WORKER PROG NOTE PSYCH ---
Social Work Progress Note Progress Note Arranged for [facility] visiting nurses [phone] in [place] to work with pt. Please fax over [phone] (upon discharge) and provide a pharmacy for patients medciations to be picked up. Pt will have a daily durable medical equipment repairer nursing services and they are prepared to begin on Monday12/20/16. Met with pt per his request he wants the above mentioned services. Pt encouraged to engage in all aspects of treatment and was educated around medications and symptoms of depression. Pt mentioned wanting to move to [place], as a goal in May with his family. Pt aware that the expectation if for him to use supports that are here today and the weekend, and that treatment and change can happen on an outpatient basis as well, to help him learn new coping skills and life managment tools to ensure a more vital healthy lifestyle.
[2016-12-16 12:31] VITALS: BP 123/89
--- NOTE | 2016-12-16 13:22 | NUR ---
PT IS SEDATED AND UNABLE TO STAY AWAKE IN GROUPS OR WHEN SITTING IN THE LOUNGE. MD NOTIFIED AND MEDS ARE ADJUSTED. PT IS IRRITABLE AND MED SEEKING. HE DID NOT ADDRESS ANY ISSUES EXCEPT TO ASK FOR MEDS. PT REPORTED SOME SUICIDAL THOUGHTS THIS MORNING BUT DENIED ANY INTENT OR PLAN TO ACT ON HIS THOUGHTS.PT DID NOT ATTEND GROUPS AND WHEN HE DID GO TO ONE HE SLEPT THROUGHOUT
[2016-12-16 15:42] VITALS: BP 129/83
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
--- NOTE | 2016-12-17 06:00 | NUR ---
PT RECEIVED IZZY 5 FOR GENERALIZED PAIN AT 0315 EVEN THOUGH, TO THIS SUPERVISOR CYTOLOGY, HE APPEARED SEDATED AND WITHOUT MUCH PAIN. PT LEFT HIS WALKER NEAR NURSES STATION UPON RETREAT TO ROOM HE HAS APPEARED TO SLEEP WELL THRU THE NIGHT.
[2016-12-17 07:51] VITALS: BP 139/89
--- NOTE | 2016-12-17 11:42 | CP SOUTH PROGRESS NOTE PSYCH ---
Psych (Inpt) Progress Note Progress Note Include the following elements, when applicable: Involvement in the active treatment of the patient with behavioral observations of the patient and the patient's response to the treatment. Review of the ongoing treatment process in the context of the treatment plan. Indication of how multi-disciplinary staff members are carrying out the treatment plan. Plans for future interventions and recommendations for revision of the treatment plan. Liaison with other physicians/providers. Progress Note: Pt notes that he is in a lot of pain today. He endorses SI since 1987 when pain started and does not want to live anymore "because of the pain." He denied active looking for means to kill self, "no I just want to ." Denies psychotic or manic sx. He then spoke at length about needing more pain medication. Pt notes he has a very hard time sleeping. Current Medications Sig/Phuong Start time Last Medication Dose Route Stop Time Status Admin Alprazolam 2 MG 0800,1300,12/16 1300 AC 12/17 PO 12/23 1259 0900 Carisoprodol 350 MG 0800,1300,12/16 1100 AC 12/17 PO 0901 Divalproex Sodium 500 MG DAILY 12/18 1000 AC PO Divalproex Sodium 1,000 MG AT BEDTIME 12/17 2199 AC PO Divalproex Sodium 500 MG BID 12/15 1149 DC 12/17 PO 0901 Escitalopram Oxalate 10 MG DAILY 12/16 1000 AC 12/17 PO 0901 Ibuprofen 800 MG Q6P PRN 12/15 0515 AC 12/17 PO 0714 Melatonin 5 MG AT BEDTIME 12/17 2199 AC PO Methadone HCl 10 MG BID 12/16 2200 AC 12/17 PO 1001 Mirtazapine 7.5 MG AT BEDTIME 12/17 2200 AC PO Multivitamins 1 TAB DAILY 12/15 1146 AC 12/17 PO 0901 Nicotine 21 MG DAILY 12/15 1149 AC 12/17 TOP 0901 Omeprazole 40 MG DAILY AC 12/16 0700 AC 12/17 PO 0713 Oxycodone HCl 5 MG Q6P PRN 12/16 1015 AC 12/17 PO 0318 Laboratory Tests 12/16 12/14 12/14 1142016 Chemistry Sodium (137 - 145 mmol/L) 142 Potassium (3.5 - 5.1 mmol/L) 3.8 Chloride (98 - 107 mmol/L) 107 Carbon Dioxide (22 - 30 mmol/L) 23 Anion Gap (5 - 16) 12 BUN (9 - 20 mg/dL) 12 Creatinine (0.7 - 1.2 mg/dL) 0.7 Estimated GFR (>60 ml/min) > 60 BUN/Creatinine Ratio (7 - 25 %) 17.1 Glucose (65 - 99 mg/dL) 83 Calcium (8.4 - 10.2 mg/dL) 8.7 Total Bilirubin (0.2 - 1.3 mg/dL) 0.5 AST (17 - 59 U/L) 48 ALT (21 - 72 U/L) 96 H Alkaline Phosphatase (< 127 U/L) 102 Troponin I (<0.11 ng/ml) < 0.01 Total Protein (6.3 - 8.2 g/dL) 7.1 Albumin (3.5 - 5.0 g/dL) 4.0 Globulin (1.9 - 4.2 gm/dL) 3.1 Albumin/Globulin Ratio (1.1 - 2.2 %) 1.3 TSH (0.270 - 4.200 uIU/mL) 1.460 Hematology CBC w Diff NO MAN DIFF REQ WBC (4.8 - 10.8 /CUMM) 8.5 RBC (4.70 - 6.10 /CUMM) 4.27 L Hgb (14.0 - 18.0 G/DL) 12.9 L Hct (42 - 52 %) 38.4 L MCV (80.0 - 94.0 FL) 89.8 MCH (27.0 - 31.0 PG) 30.2 RDW (11.5 - 14.5 %) 15.6 H Plt Count (130 - 400 /CUMM) 192 MPV (7.4 - 10.4 FL) 8.6 Gran % (42.2 - 75.2 %) 69.0 Lymphocytes % (20.5 - 51.1 %) 23.1 Monocytes % (1.7 - 9.3 %) 4.4 Eosinophils % (0 - 5 %) 2.7 Basophils % (0.0 - 2.0 %) 0.8 Absolute Granulocytes (1.4 - 6.5 /CUMM) 5.9 Absolute Lymphocytes (1.2 - 3.4 /CUMM) 2.0 Absolute Monocytes (0.10 - 0.60 /CUMM) 0.4 Absolute Eosinophils (0.0 - 0.7 /CUMM) 0.2 Absolute Basophils (0.0 - 0.2 /CUMM) 0.1 PUBS MCHC (33.0 - 37.0 G/DL) 33.7 Toxicology Urine Opiates Screen (>2000 NG/ML) 287.00 < 100.00 Methadone Screen (>300 NG/ML) > 735 H < 40 Barbiturate Screen (>200 NG/ML) < 60 < 60 Valproic Acid (50 - 120 ug/mL) < 10.0 L Ur Phencyclidine Scrn (>25 NG/ML) < 6.00 < 6.00 Amphetamines Screen (>1000 NG/ML) < 100 < 100 U Benzodiazepines Scrn (>200 NG/ML) > 800 H < 85 Urine Cocaine Screen (>300 NG/ML) 70 < 50 Urine Cannabis Screen (>50 NG/ML) < 5.00 < 5.00 Serum Alcohol (<10 MG/DL) 21.0 Vital Signs Date Time Temp Pulse Resp B/P Pulse O2 O2 Flow FiO2 Ox Delivery Rate 12/17 0751 97.6 96 139/89 12/16 1542 96 129/83 12/16 1231 89 123/89 MSE Appears much older than stated age, rolling walker. Cooperative behavior, good, appropriate eye contact. Nl speech rate and prosody. No psychomotor retardation or agitation. Mood in so much pain Affect irritable, constricted, appropriate , non-liable. Linear and goal directed thought process. Denies SI or HI. Does not appear to be responding to internal stimuli. Denies AVHs, paranoia, or delusions. I/J: limited A/P: Pt with Bipolar disorder, OUD, and chronic pain now with depressed mood 2/2 to chronic pain. Given mood sleep and mood, will trial mirtazapine to address this ex. - Start melatonin 5mg qhs - Start mirtazapine 7.5mg nightly - Depakote increased to 500mg daily and 1000mg nightly - Continue current medication regimen otherwise, opiates were not increased - Encourage coping skills for mood and chronic pain
[2016-12-17 12:23] VITALS: BP 143/80
--- NOTE | 2016-12-17 13:40 | NUR ---
Patient is A&O X 3, appears very drowsy and nodding out off and on. Mood is very depressive/ euthymic continue to endorse passive suicidal ideation but denies and homicidal ideation. Patient also continue to voice his frutration over his perceived short term memory and chronic pain, also endorsing hopeless and helplessness. vital sign is stable and WNL.
[2016-12-17 16:19] VITALS: BP 155/91
[2016-12-17 19:47] VITALS: BP 134/98
--- NOTE | 2016-12-17 20:54 | NUR ---
Pt is out in the lounge most of the shift sleeping. Vital signs are stable walks with walker for safety. Appetite is good. Will continue to monitor the pt overnight.
[2016-12-18 07:40] VITALS: BP 128/94
--- NOTE | 2016-12-18 12:03 | CP SOUTH PROGRESS NOTE PSYCH ---
See Addendum Psych (Inpt) Progress Note Progress Note Include the following elements, when applicable: Involvement in the active treatment of the patient with behavioral observations of the patient and the patient's response to the treatment. Review of the ongoing treatment process in the context of the treatment plan. Indication of how multi-disciplinary staff members are carrying out the treatment plan. Plans for future interventions and recommendations for revision of the treatment plan. Liaison with other physicians/providers. Progress Note: Pt extremely sedated today but easily arousable. He continues that he is in increased pain as oxycodone decreased days ago though has been noted to be sleeping comfortably around the unit. When not being observed, seen to move quite quickly and freely without the walker. He notes ongoing passive SI, "becauase of the pain." Denies active SI or HI. Current Medications Sig/Phuong Start time Last Medication Dose Route Stop Time Status Admin Alprazolam 2 MG 0800,1300,12/16 1300 AC 12/18 PO 03/03 1259 0759 Carisoprodol 350 MG 0800,1300,12/16 1100 AC 12/18 PO 0759 Divalproex Sodium 500 MG DAILY 12/18 1000 AC 12/18 PO 0800 Divalproex Sodium 1,000 MG AT BEDTIME 12/17 2200 AC 12/17 PO 2122 Escitalopram Oxalate 10 MG DAILY 12/16 1000 AC 12/18 PO 0759 Ibuprofen 800 MG Q6P PRN 12/15 0515 AC 12/18 PO 0614 Melatonin 5 MG AT BEDTIME 12/17 2200 AC 12/17 PO 2122 Methadone HCl 10 MG BID 12/16 2200 AC 12/18 PO 1029 Mirtazapine 7.5 MG AT BEDTIME 12/17 2200 AC PO Multivitamins 1 TAB DAILY 12/15 1146 AC 12/18 PO 0759 Nicotine 21 MG DAILY 12/15 1149 AC 12/18 TOP 0800 Omeprazole 40 MG DAILY AC 12/16 0700 AC 12/18 PO 0614 Oxycodone HCl 5 MG Q6P PRN 12/16 1015 AC 12/18 PO 0615 Laboratory Tests 12/18 12/16 0610 1143 Toxicology Urine Opiates Screen (>2000 NG/ML) 287.00 Methadone Screen (>300 NG/ML) > 735 H Barbiturate Screen (>200 NG/ML) < 60 Valproic Acid (50 - 120 ug/mL) 72.6 Ur Phencyclidine Scrn (>25 NG/ML) < 6.00 Amphetamines Screen (>1000 NG/ML) < 100 U Benzodiazepines Scrn (>200 NG/ML) > 800 H Urine Cocaine Screen (>300 NG/ML) 70 Urine Cannabis Screen (>50 NG/ML) < 5.00 Vital Signs Date Time Temp Pulse Resp B/P Pulse O2 O2 Flow FiO2 Ox Delivery Rate 12/18 0740 98.1 82 128/94 12/17 1947 97.3 85 134/98 12/17 1619 86 155/91 12/17 1223 85 143/80 MSE Appears as stated age. Cooperative behavior, good, appropriate eye contact. Nl speech rate and prosody. No psychomotor retardation or agitation. Mood the pain.... Affect irritable, depressed, constricted, appropriate, non-liable. Linear and goal directed thought process. + passive SI 2/2 pain denies active SI or HI. Does not appear to be responding to internal stimuli. Denies AVHs, paranoia, or delusions. I/J: limited A/P: Pt with unspecified mood disorder and chronic pain with continued poor mood in the setting of pain. There seems to be some discrepancy in self report of pain and the free range of motion that patient has. It may be that opiates making chronic pain worse as a result of opiate-induced hyperalgesia for which the treatment would be taper of all opiates. - Continue current medication regimen - Pt may benefit from CBT for chronic pain as outpatient as well as taper and cessation of all opiates
--- NOTE | 2016-12-18 14:06 | NUR ---
PT IS OVERSEDATEDYET HE IS DEMANDING MORE OPIATES FROM THE DOCTOR AND WALKED OUT OF HER OFFICE WHEN SHE REFUSED TO GIVE HIM MORE. EVERY CONVERSATION HE HAS IS TOO ASK FOR MORE MEDS. PT IS OBSERVED SLEEPING IN THE LOUNGE..DURING HIS MEALS AND DURING GROUPS. HE IS UNABLE TO STAY AWAKE. PT REPORTED SUICIDAL THOUGHTS TODAY BUT DENIED PLAN OR URGE TO ACT ON HIS THOUGHTS. PT IS ENC TO ATTEND GROUPS
[2016-12-18 16:26] VITALS: BP 136/81
[2016-12-18 19:32] VITALS: BP 151/89
--- NOTE | 2016-12-18 23:15 | NUR ---
PT IS LETHARGIC, SLEEPING OFTEN IN [place], DIFFICULTY REMAINING AWAKE IN GENERAL. PT IS CALM AND COOPERATIVE WITH STAFF AND PEERS FOR THE MOST PART. MOOD IS STABLE, AFFECT IS FLAT, COMMUNICATION IS SLOW AND WORDS ARE SLURRED, AND APPETITE IS NORMAL. PT MADE SI COMMENT DURING 1600 VITALS. PT DENIED A PLAN AND A WILL TO CARRY ANYTHING OUT ON UNIT. CHARGE NURSE WAS NOTIFIED SUBSEQUENT TO THE COMMENT.
--- NOTE | 2016-12-19 04:53 | NUR ---
PT. SLEPT WELL.
[2016-12-19 07:43] VITALS: BP 146/93
--- NOTE | 2016-12-19 10:04 | SOCIAL WORKER TX PLAN PSYCH ---
Treatment Plan - Please Document: - Evidence that there is ongoing collaboration between - the patient and the interdisciplinary team, - including the patient's active participation and - responsibility for engaging in the treatment regimen, - and that the treatment plan is individualized and - relevant to the patient's conditions. - Treatment plan should reflect documentation indicating - that all active therapeutic efforts are included. Strengths/Capabilities: The patient has good insight into his need for treatment and is motivated to attend. Physical Limitations (Interventions): Chronic back and neck pain Patient Identified Trmt Goals: " I want to feel better about my life." Discharge Plan: Outpatient Problem/Goals #1 Problem #1: suicidal ideation Goal (Short Term): Today I will attend 2 groups Today I will identify 2 stressors Today I will identify 2 positive supports Today I will work on recognizing 3 emotions I am feeling Goal (Stamping Die Maker): Be free of suicidal thoughts/attempts Develop 3 coping skills to deal with depression Identify 3 positive support systems to call in crisis Develop a crisis plan with 3 copeland people Identify 2 positive traits per week about myself Identify 2 things I have to look forward to Identify 2 positive people in my life and 1 thing I appreciate about them Interventions: Learn ways to manage depressive symptoms accordingly and identify positive supports to manage life stressors and mood fluctuations. Modalities: Encourage groups, education on depression, provide CBT treatment, family meeting. DSM5/PS Stressors/Medical Prob Diagnosis' (DSM 5, Stressors, Medical): F31.9 Unspecified Bipolar disorder, F10.10 Alcohol use disorder. Current GAF: 28 Treatment Team - Responsibilities of members of the treatment team include: - Medication Management- MD or CISCO ENGINEER - Medication Administration and Monitoring- Nurse - Group Therapy- Occupational Therapist - 1:1 Therapy,Disch Planning,family involvement-Chin Strap Cutter
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
[2016-12-19 12:16] VITALS: BP 149/87
--- NOTE | 2016-12-19 13:27 | CP SOUTH PROGRESS NOTE PSYCH ---
Psych (Inpt) Progress Note Progress Note Progress Note: I discussed this patient's progress to date, current mental status, treatment process in the context of the treatment plan, and discharge planning with staff/ team in the daily morning inpatient team meeting. I also met with the patient myself in individual session. A total of 25 minutes was spent with the patient with more than 50% spent in counseling and/or coordination of care. SUBJECTIVE: "If I leave today I am going to hang myself." OBJECTIVE: Current Medications Sig/Phuong Start time Last Medication Dose Route Stop Time Status Admin Alprazolam 1 MG 0800,1300,1700,0 12/19 1300 AC 12/19 PO 12/26 1259 1255 Alprazolam 2 MG 0800,1300,0 12/16 1300 DC 12/19 PO 12/23 1259 0928 Carisoprodol 350 MG Q6-PRN PRN 12/19 1100 AC PO Carisoprodol 350 MG 0800,1300,0 12/16 1100 DC 12/19 PO 0929 Divalproex Sodium 500 MG 0800,2000 12/19 2000 AC PO Divalproex Sodium 500 MG DAILY 12/18 1000 DC 12/19 PO 0928 Divalproex Sodium 1,000 MG AT BEDTIME 12/17 2200 DC 12/18 PO 2135 Escitalopram Oxalate 10 MG DAILY 12/16 1000 AC 12/19 PO 0928 Ibuprofen 800 MG Q6P PRN 12/15 0515 AC 12/19 PO 1255 Melatonin 5 MG AT BEDTIME 12/17 2200 AC 12/18 PO 2135 Methadone HCl 10 MG BID 12/16 2200 AC 12/19 PO 0928 Mirtazapine 7.5 MG AT BEDTIME 12/17 2200 DC PO Multivitamins 1 TAB DAILY 12/15 1146 AC 12/19 PO 0928 Nicotine 21 MG DAILY 12/15 1149 AC 12/19 TOP 0928 Omeprazole 40 MG DAILY AC 12/16 0700 AC 12/19 PO 0512 Oxycodone HCl 5 MG Q8P PRN 12/19 1100 AC PO Oxycodone HCl 5 MG Q6P PRN 12/16 1015 DC 12/19 PO 0928 Vital Signs Date Time Temp Pulse Resp B/P Pulse O2 O2 Flow FiO2 Ox Delivery Rate 12/19 1216 72 149/87 12/19 0743 98.5 86 146/93 12/18 1932 97.0 89 151/89 12/18 1626 90 136/81 ASSESSMENT: Today I met the patient along with school social worker Estella. As per my conversation with the patient prior to the weekend, we had anticipated discharge for today. Today he presents with a sad, depressed affect. Appearing sedated, not speaking clearly. As per nursing report, patient has been sleeping in his chair. Patient reports suicidal ideation, with a plan to hang himself if he is discharged today. He states that he had a conversation with his girlfriend on Monday, and although he would not divulge the details of that conversation, he said that she was no longer planning on accompanying him to [place] this summer. He now states that he will not be moving to [place] in the summer with his family. Depression: 10/10; Anxiety: 10/10 (with 10 the worst.) Denies homicidal ideation, auditory hallucinations, visual hallucinations, paranoid ideation. Speech is poorly articulated, slurring some words, goal-directed, average in rate, volume and tone. The patient understands the risks/benefits/side effects of the medication and is agreeable to continue taking them. PLAN: Medication changes, as the patient appears overly sedated: Decrease valproic acid to 500 mg twice daily, Xanax decreased to 1 mg every 6 hours, Soma as needed every 6 hours, not to exceed 3 doses in 24 hours, oxycodone 5 mg decreased to every 8 hours as needed. Continue with other current management. Continue to provide support and encouragement.
--- NOTE | 2016-12-19 14:44 | NUR ---
PT IS OUT IN COMMUNITY INTERACTING WELL WITH STAFF AND PEERS. PT IS COMPLIANT AND COOPERATIVE. PT IS ATTENDING SOME GROUPS. PT MOOD IS STABLE WTIH A FLAT AFFECT. PT STATED HE HAD SI THOUGHTS THIS MORNING BUT NO PLAN TO ACT ON THEM.
[2016-12-19 15:52] VITALS: BP 142/84
[2016-12-19 19:40] VITALS: BP 160/91
--- NOTE | 2016-12-19 21:19 | NUR ---
PT IS VISIBLE ON UNIT, SOCIAL WITH PEERS IN KITCHEN. PT CAN BE SEEN FALLING ASLEEP IN CHAIRS THROUGHOUT THE COMMUNITY. PT ATTENDED WRAP UP AND WAS SLEEPING WHILE OTHERS WERE SHARING. WHEN IT WAS HIS TURN TO SPEAK PT STATED "I HAVE NOT SLEPT IN 5 DAYS" AND "I AM STILL SUICIDAL." PT HAS NO INTENT OR PLAN TO HARM SELF WHILE ON UNIT. PT COMPLAINS OF PAIN. PT HAS A STABLE MOOD AND LETHARGIC AFFECT.
--- NOTE | 2016-12-20 04:53 | NUR ---
PT APPEARED TO SLEEP THRU THE NIGHT.
[2016-12-20 07:43] VITALS: BP 149/87
--- NOTE | 2016-12-20 11:24 | SOCIAL WORKER PROG NOTE PSYCH ---
Social Work Progress Note Progress Note Encouraged pt to make steps to alleviate chronic symptomology of depression. Pt agreed to a referral to [facility] when I called for an appointment Pt gave permission for me to make his appointment, Magdi Hurt needs to approve patients coming from an inpatient unit, and he will call back so we can provide clinical. Essentially, I think an outpatient therapist would be beneficial for this pt to discuss chronic pain and mental health issues, so pt can learn new coping skills outside of the hospital. Pt agrees. Pt has a brother who will transport him to appointments he brings him to Dr. Vidales etc. I also left a message with mena cisneros requesting a call back for intake. Pt is open to outpatient treatment. [facility] up [facility] to begin Monday. Pt aware of discharge plan for tomorrow.
[2016-12-20 12:30] VITALS: BP 141/91
--- NOTE | 2016-12-20 12:53 | CP SOUTH PROGRESS NOTE PSYCH ---
Psych (Inpt) Progress Note Progress Note Progress Note: I discussed this patient's progress to date, current mental status, treatment process in the context of the treatment plan, and discharge planning with staff/ team in the daily morning inpatient team meeting. I also met with the patient myself in individual session. A total of 25 minutes was spent with the patient with more than 50% spent in counseling and/or coordination of care. SUBJECTIVE: "I'm really depressed. I don't feel safe. I need help." OBJECTIVE: Current Medications Sig/Phuong Start time Last Medication Dose Route Stop Time Status Admin Alprazolam 1 MG 0800,1300,1700,2200 12/19 1300 AC 12/20 PO 12/26 1259 0754 Carisoprodol 350 MG Q6-PRN PRN 12/19 1100 AC 12/20 PO 1213 Divalproex Sodium 500 MG 0800,12/19 2000 AC 12/20 PO 0753 Escitalopram Oxalate 10 MG DAILY 12/16 1000 AC 12/20 PO 0753 Ibuprofen 800 MG .STK-MED ONE 12/19 1249 DC PO 12/19 1250 Ibuprofen 800 MG Q6P PRN 12/15 0515 AC 12/20 PO 0853 Melatonin 5 MG AT BEDTIME 12/17 2200 AC 12/19 PO 2135 Methadone HCl 10 MG BID 12/16 2200 AC 12/20 PO 1003 Multivitamins 1 TAB DAILY 12/15 1146 AC 12/20 PO 0753 Nicotine 21 MG DAILY 12/15 1149 AC 12/20 TOP 0753 Omeprazole 40 MG DAILY AC 12/16 0700 AC 12/20 PO 0752 Oxycodone HCl 5 MG Q8P PRN 12/19 1100 AC 12/19 PO 1932 Vital Signs Date Time Temp Pulse Resp B/P Pulse O2 O2 Flow FiO2 Ox Delivery Rate 12/20 1230 70 141/91 12/20 0743 97.7 82 149/87 12/19 1940 96.6 81 160/91 12/19 1552 74 142/84 ASSESSMENT: Patient continues to report suicidal ideation and depression. It's he is not safe to return home at this time. I met the patient today along with director social service Dawna, who stressed that the patient needed to make changes in his life, and recommended that he engage in therapy. Patient verbalized understanding and agreement, and agreed to have Dawna set up a therapy appointment for him after discharge. As per nursing report, patient has appeared over sedated and lethargic on the unit. Patient verbalized understanding that we will be reducing the dosages of some of his sedating medications, without complaint. Depression and anxiety continue. Denies homicidal ideation, auditory hallucinations, visual hallucinations, paranoid ideation. Patient contracts for safety while his here on the unit. Speech is well articulated, goal-directed, average in rate, volume and tone. Alert and oriented 3. Sad, depressed affect. The patient understands the risks/benefits/side effects of the medication and is agreeable to continue taking them. PLAN: Slow progress. Limit Soma and oxycodone to two prn doses in 24 hours. Continue with current management as patient is improving. Continue to provide support and encouragement.
--- NOTE | 2016-12-20 12:59 | NUR ---
PT IS OUT IN COMMUNITY INTERACIING AT TIMES WITH STAFF AND PEERS. PT IS ATTENDING SOME GROUPS BUT IS MOSTLY INACTIVE IN THEM. PT HAS A NEGATIVE ATTITUDE ABOUT TREATMENT AND PLACEMENT. PT MOOD IS STABLE WITH A CONSTRICTED AFFECT. PT DENIES SI THOUGHTS
[2016-12-20 15:53] VITALS: BP 130/92
[2016-12-20 20:10] VITALS: BP 150/94
--- NOTE | 2016-12-20 21:42 | NUR ---
Pt is out in the community during change of shift, sleeping while in the lounge. Pt is compliant no behavioral issues noted. Vital signs are stable appetite is good. Will continue to monitor the pt overnight.
--- NOTE | 2016-12-21 05:42 | NUR ---
PT UP X 1 TO BR. PT APPEARED TO SLEEP.
[2016-12-21 07:32] VITALS: BP 146/97
--- NOTE | 2016-12-21 11:48 | NUR ---
PT HAS BEEN CALM AND COOPERATIVE THIS SHIFT. HE APPEARS SEDATED AT TIMES BUT HE IS ATTENDING SOME OF THE GROUPS. HE REPORTED SUICIDAL THOUGHTS THIS MORNING BUT DENIES URGE OR INTENT TO ACT ON HIS THOUGHTS.
[2016-12-21 12:15] VITALS: BP 137/95
--- NOTE | 2016-12-21 12:35 | CP SOUTH PROGRESS NOTE PSYCH ---
Psych (Inpt) Progress Note Progress Note Progress Note: I discussed this patient's progress to date, current mental status, treatment process in the context of the treatment plan, and discharge planning with staff/ team in the daily morning inpatient team meeting. I also met with the patient myself in individual session. A total of 15 minutes was spent with the patient with more than 50% spent in counseling and/or coordination of care. SUBJECTIVE: "I'm feeling more comfortable about having a visiting nurse. I won' t overtake the medications. I'll have no control over them." OBJECTIVE: Current Medications Sig/Phuong Start time Last Medication Dose Route Stop Time Status Admin Alprazolam 1 MG 08,12/21 UNVr PO 12/28 195 Alprazolam 1 MG 0800,1300,1700,2200 12/19 1300 DC 12/21 PO 12/26 1259 0751 Carisoprodol 350 MG Q6-PRN PRN 12/19 1100 AC 12/21 PO 1156 Divalproex Sodium 500 MG 08,12/19 AC 12/21 PO 0749 Escitalopram Oxalate 10 MG DAILY 12/16 1000 AC 12/21 PO 0749 Ibuprofen 800 MG Q6P PRN 12/15 0515 AC 12/20 PO 0853 Melatonin 5 MG AT BEDTIME 12/17 2199 AC 12/20 PO 2257 Methadone HCl 10 MG BID 12/16 2199 AC 12/21 PO 0751 Multivitamins 1 TAB DAILY 12/15 1146 AC 12/21 PO 0749 Nicotine 21 MG DAILY 12/15 1149 AC 12/21 TOP 0749 Omeprazole 40 MG DAILY AC 12/16 0700 AC 12/21 PO 0650 Oxycodone HCl 5 MG Q8P PRN 12/19 1100 AC 12/21 PO 0925 Prazosin HCl 1 MG AT BEDTIME 12/21 2199 UNVr PO Sodium Chloride 2 SPRAY Q4P PRN 12/20 1630 AC 12/21 ABRAHAM 0821 Vital Signs Date Time Temp Pulse Resp B/P Pulse O2 O2 Flow FiO2 Ox Delivery Rate 12/21 1215 75 137/95 12/21 0732 98.0 76 146/97 12/20 2009 97.6 81 150/94 12/20 1553 77 130/92 12/20 1230 70 141/91 ASSESSMENT: Patient appears less sedated, more awake today. Calm and logical. I met the patient today with social group worker Estella. Patient states that "I'm doing a little better." Continues to express suicidal ideation, with a plan to hang himself. He states "I'm a wreck." Reports continuing depression, states that he feels depressed from the pain and from "the dreams." States he's been having nightmares. We discussed his medications, and our plan to continue tapering him down off off medications which are sedating. The patient had been clearly oversedated when he arrived in the hospital, and is better now. Patient verbalized understanding and agreed to today's dosage change to Xanax 1 mg twice a day. At the end of our visit today, he asked for Percocet Depression:8/10; Anxiety:8/10 (with 10 the worst.) Denies homicidal ideation, auditory hallucinations, visual hallucinations, paranoid ideation. Speech is well articulated, goal-directed, average in rate, volume and tone. The patient understands the risks/benefits/side effects of the medication and is agreeable to continue taking them. PLAN: Xanax 1 mg twice daily. Prazosin 1 mg for nightmares at bedtime Continue with other current management as patient is improving. Continue to provide support and encouragement.
--- NOTE | 2016-12-21 13:10 | SOCIAL WORKER PROG TO GOALS ---
Progress Toward Goals Strengths/Capabilities: The patient has good insight into his need for treatment and is motivated to attend. Physical Limitations (Interventions): Chronic back and neck pain Patient Identified Trmt Goals: " I want to feel better about my life." Discharge Plan: Outpatient Problem/Goals #1 Problem #1: suicidal ideation Goal (Short Term): Today I will attend 2 groups Today I will identify 2 stressors Today I will identify 2 positive supports Today I will work on recognizing 3 emotions I am feeling Goal (Anthropology Instructor): Be free of suicidal thoughts/attempts Develop 3 coping skills to deal with depression Identify 3 positive support systems to call in crisis Develop a crisis plan with 3 [place] people Identify 2 positive traits per week about myself Identify 2 things I have to look forward to Identify 2 positive people in my life and 1 thing I appreciate about them Interventions: Learn ways to manage depressive symptoms accordingly and identify positive supports to manage life stressors and mood fluctuations. Progress: Continues to endorse +SI. Has been attending groups on the unit, more alert and less sedated. Has plan to hang himself, is unabel to contract for safety. Is open to outpatient therapy at this time and referral made to [facility].
--- NOTE | 2016-12-21 13:12 | SOCIAL WORKER PROG NOTE PSYCH ---
Social Work Progress Note Progress Note Patient continues to endorse +SI today with plan to hang himself. Patient has been attending groups on the unit, he is noticeably more alert and less sedated. Patient is aware that we are continuing to taper his benzodiazepines due to the depressant affect they have which may be contributing to his depression/ SI. Patient continues to express desire for outpatient therapy and VNS to help monitor his medications and prevent him from abusing them. Patient is unable to contract for safety at this time.
[2016-12-21 15:28] VITALS: BP 150/96
[2016-12-21 19:43] VITALS: BP 152/93
--- NOTE | 2016-12-21 21:41 | NUR ---
PT IS IS HIGHLY LETHARGIC, SLEEPING OFTEN IN [place]. ISOLATIVE AND WITHDRAWN DUE TO SLEEPING. MOOD IS STABLE, AFFECT IS FLAT/CONSTRICTED, COMMUNICATION IS SLOW BUT ORGANIZED, AND APPETITE IS NORMAL. PT HAS BEEN CALM, COOPERATIVE, AND COMPLIANT WITH UNIT RULES. PT MADE AN SI COMMENT DURING 1600 VITALS, THOUGH DENIES A PLAN, OR WILL TO CARRY ANYTHING OUT ON THE UNIT. CHARGE NURSE WAS NOTIFED SUBSEQUENT TO THE STATEMENT BEING MADE.
--- NOTE | 2016-12-22 06:54 | NUR ---
patient awake several times during night, soma prn given at 0100.
[2016-12-22 07:58] VITALS: BP 129/73
--- NOTE | 2016-12-22 11:52 | SOCIAL WORKER PROG NOTE PSYCH ---
Social Work Progress Note Progress Note Patient continues to endorse SI today with plan to drink a bottle of whiskey and hang himself. Patient was complaining of pain today due to tapered medications but was notified that medications will continue to be safely tapered due to the depressing effect they have which are contributing to his suicidal thoughts. Patient was confronted by this justowriter operator and Leopoldo West APRN that we do not feel treatment in the hospital is benefiting him if we are unable to speak to his outside providers who treat him on a regular basis. Patient refuses to sign THEODORA' s for any of his outpatient providers and is unwilling to compromise on this discussiion. Patient does not appear motivated to change and follow through with therapy post hospitalization and was made aware that at this point we feel we are stuck. Patient had little to say back but continues to report depresssion and anxiety and his desire to remain in the hospital.
[2016-12-22 12:12] VITALS: BP 120/66
--- NOTE | 2016-12-22 12:42 | NUR ---
PT VISIBLE IN THE [place] TODAY. HIS GOAL WAS TO TALK TO NEUROLOGICAL SURGEON ABOUT MEDICATION CONCERNS. PT HAS BEEN A BIT IRRTITABLE ESPECIALLY AFTER TALKING TO HIS NEUROLOGICAL SURGEON. HE WENT TO PLANNING GROUP, BUT DID NOT ATTEND ANY OTHER GROUPS. PT HAS THOUGHTS OF HURTING SELF WHEN ASKED, AND THE TEAM IS AWARE.
--- NOTE | 2016-12-22 13:01 | CP SOUTH PROGRESS NOTE PSYCH ---
Psych (Inpt) Progress Note Progress Note Progress Note: I discussed this patient's progress to date, current mental status, treatment process in the context of the treatment plan, and discharge planning with staff/ team in the daily morning inpatient team meeting. I also met with the patient myself in individual session. A total of 25 minutes was spent with the patient with more than 50% spent in counseling and/or coordination of care. SUBJECTIVE: "I'm not doing well." OBJECTIVE: Current Medications Sig/Phuong Start time Last Medication Dose Route Stop Time Status Admin Alprazolam 0.5 MG 799,12/22 AC PO 12/29 1958 Alprazolam 1 MG 799,12/21 DC 12/22 PO 12/28 1958 075 Carisoprodol 350 MG Q12P PRN 12/22 1045 AC PO Carisoprodol 350 MG Q6-PRN PRN 12/19 1100 DC 12/22 PO 0753 Divalproex Sodium 500 MG 0800 12/23 08 AC PO Divalproex Sodium 1,000 MG 12/22 AC PO Divalproex Sodium 500 MG 08,12/19 DC 12/22 PO 1004 Escitalopram Oxalate 20 MG 0800 12/23 0800 AC PO Escitalopram Oxalate 10 MG DAILY 12/16 1000 DC 12/22 PO 0753 Ibuprofen 800 MG .STK-MED ONE 12/21 1940 DC PO 12/21 194 Ibuprofen 800 MG Q6P PRN 12/15 0515 AC 12/22 PO 0708 Melatonin 5 MG AT BEDTIME 12/17 2200 AC 12/21 PO 2211 Methadone HCl 10 MG BID 12/16 2200 AC 12/22 PO 1004 Multivitamins 1 TAB DAILY 12/15 1146 AC 12/22 PO 0753 Nicotine 21 MG DAILY 12/15 1149 AC 12/22 TOP 0752 Omeprazole 40 MG DAILY AC 12/16 0700 AC 12/21 PO 0650 Oxycodone HCl 5 MG Q8P PRN 12/19 1100 AC 12/22 PO 0639 Prazosin HCl 1 MG AT BEDTIME 12/21 2200 AC 12/21 PO 2212 Sodium Chloride 2 SPRAY Q4P PRN 12/20 1630 AC 12/22 ABRAHAM 0656 Laboratory Tests 12/22 0636 Toxicology Valproic Acid (50 - 120 ug/mL) 46.7 L Vital Signs Date Time Temp Pulse Resp B/P Pulse O2 O2 Flow FiO2 Ox Delivery Rate 12/22 1212 77 120/66 12/22 0758 96.3 82 129/73 12/21 2212 98.4 87 18 152/93 12/21 1943 98.4 87 152/93 12/21 1528 76 150/96 ASSESSMENT: Today I met the patient along with rn social work Estella. Patient continues to complain of depression, anxiety, suicidal ideation with a plan to hang himself, if he were to be discharged from the hospital. We spoke to the patient about his course of treatment, and explained that we would be continuing to decrease the dosages of sedating drugs, as he still appears to be somewhat sedated on the unit. I tried to explain to the patient the importance of communication between our unit, and the patient's psychiatrist, pain management physician, and his primary care physician. Patient continues to decline to sign disclosure waivers. We asked the patient what he intended to get out of inpatient stay in the hospital, and what he thought he might need to change in order to move on with his life. Patient replied that he would like to increase the dosages of his pain medications. Depression:8/10; Anxiety:8/10 (with 10 the worst.) Denies suicidal ideation, homicidal ideation, auditory hallucinations, visual hallucinations, paranoid ideation. Patient continues to endorse suicidal ideation with a plan to hang himself if discharged from the hospital. States he only slept for approximately 2 or 3 hours last night "I always had a problem sleeping." States his appetite is fine. Speech is well articulated, goal-directed, average in rate, volume and tone. The patient understands the risks/benefits/side effects of the medication and is agreeable to continue taking them. PLAN: Increase Depakote to reach therapeutic level. Decrease Xanax to 0.5 mg twice daily; Soma every 12 hours as needed; consider increasing Lexapro for continuing depression and anxiety. Continue with other current management as patient is improving. Continue to provide support and encouragement.
[2016-12-22 15:56] VITALS: BP 132/79
[2016-12-22 19:44] VITALS: BP 139/99
--- NOTE | 2016-12-22 21:36 | NUR ---
PT IS LETHARGIC, SLEEPING OFTEN IN [place]. MOOD IS STABLE, AFFECT IS FLAT/COSNTRICTED, COMMUNICATION IS MORMAL, AND APPETITE IS NORMAL. PT DENIES SI AT THIS TIME.
[2016-12-23 07:52] VITALS: BP 143/78
--- NOTE | 2016-12-23 11:13 | CP SOUTH PROGRESS NOTE PSYCH ---
Psych (Inpt) Progress Note Progress Note Progress Note: I discussed this patient's progress to date, current mental status, treatment process in the context of the treatment plan, and discharge planning with staff/ team in the daily morning inpatient team meeting. I also met with the patient myself in individual session. A total of 15 minutes was spent with the patient with more than 50% spent in counseling and/or coordination of care. SUBJECTIVE: "I still feel suicidal. I'll hang myself." OBJECTIVE: Current Medications Sig/Phuong Start time Last Medication Dose Route Stop Time Status Admin Alprazolam 0.5 MG 799,12/22 AC 12/23 PO 12/29 1959 0810 Carisoprodol 350 MG Q12P PRN 12/22 1045 AC 12/23 PO 0523 Divalproex Sodium 500 MG 12/23 08 AC 12/23 PO 0808 Divalproex Sodium 1,000 MG 12/22 AC 12/22 PO 1946 Escitalopram Oxalate 20 MG 12/23 08 AC 12/23 PO 0808 Ibuprofen 800 MG Q6P PRN 12/15 0515 AC 12/22 PO 0708 Melatonin 5 MG AT BEDTIME 12/17 2200 AC 12/22 PO 2151 Methadone HCl 10 MG BID 12/16 2200 AC 12/23 PO 0810 Multivitamins 1 TAB DAILY 12/15 1146 AC 12/23 PO 0808 Nicotine 21 MG DAILY 12/15 1149 AC 12/23 TOP 0808 Omeprazole 40 MG DAILY AC 12/16 0700 AC 12/23 PO 0523 Oxycodone HCl 5 MG Q8P PRN 12/19 1100 AC 12/22 PO 2149 Prazosin HCl 1 MG AT BEDTIME 12/21 2200 AC 12/22 PO 2150 Sodium Chloride 2 SPRAY Q4P PRN 12/20 1630 AC 12/22 ABRAHAM 1406 Vital Signs Date Time Temp Pulse Resp B/P Pulse O2 O2 Flow FiO2 Ox Delivery Rate 12/23 0752 98.1 80 143/78 12/22 2150 96.9 75 18 139/99 12/22 1944 96.9 75 139/99 12/22 1556 71 132/79 / 1212 77 120/66 ASSESSMENT: Patient continues to complain of depression, anxiety and suicidal ideation with a plan and intent to hang himself if he were to be discharged from the hospital. He did however appear much more awake and clear minded than he has in the past, now that we have been decreasing his sedating medications. We spoke again about courses of action he would need to take in order to regain control of his life. I encouraged him to sign wavers permitting us to be in contact with his other doctors, in order to coordinate his care. Patient continues to decline. I also encouraged the patient to consider restarting treatment at [facility], where they could offer a wide variety of services including counseling, and case management. Again the patient has declined, at this time. Patient states that he believes he'll be ready for discharge on Monday. States he has arranged for a friend to pick him up at his home on Monday, and take him to an AA meeting. Today in our morning team meeting, it was agreed that the patient is approaching his maximum hospital benefit, and we anticipate discharge after the weekend. Depression:8/10; Anxiety:8/10 (with 10 the worst.) Denies homicidal ideation, auditory hallucinations, visual hallucinations, paranoid ideation. Speech is well articulated, goal-directed, average in rate, volume and tone. The patient understands the risks/benefits/side effects of the medication and is agreeable to continue taking them. PLAN: Continuing, but slow progress. Anticipate discharge Monday. Continue with current management as patient is improving. Continue to provide support and encouragement.
[2016-12-23 12:28] VITALS: BP 124/89
--- NOTE | 2016-12-23 14:07 | NUR ---
PT IS COMPLIANT AND COOPERATIVE. MOOD IS STABLE WITH A CONSTRICTED AFFECT. PT PRESENTS IRRITABLE. PT REPORTED HE IS "MAYBE" HAVING SI THOUGHTS- DOES NOT HAVE A PLAN AND WILL NOT ACT ON THE UNIT. PT GAIT APPEARS STEADIER AND PT IS USING WALKER LESS FREQUENTLY. PT IS PRESENT IN THE COMMUNITY AND HAS SOME INTERACTION WITH PEERS AND STAFF. PT IS ATTENDING MOST GROUPS. VITALS ARE STABLE, APPETITE IS GOOD.
--- NOTE | 2016-12-23 14:08 | SOCIAL WORKER PROG NOTE PSYCH ---
Social Work Progress Note Progress Note Patient continues to report SI today with plan to hang himself. Patient continues to appear more alert and less sedated throughout the day. He has been seen attending groups throughout the day and reports appetite is good but continued poor sleep. Patient continues to perseverate on med changes and feeling like he needs more pain medication. Patient was confronted agan today by this check writer with the challenge we face by patient refusing to sign THEODORA's for us to speak to his outside providers and/or his family members for collateral information. Patient was made aware that if he is to re-present to our ED in the future, he may be asked by crisis to have these issues addressed while in the ED prior to coming onto the unit. Patient expressed some resistence to this but understood.
[2016-12-23 16:40] VITALS: BP 148/98
[2016-12-23 19:33] VITALS: BP 158/100
--- NOTE | 2016-12-23 21:17 | NUR ---
PT IS CALM, COOPERATOVE WITH STAFF AND PEERS, AND COMPLIANT WITH UNIT RULES. AT TIMES PT SHOWS SIGNS OF AGGITATION TOWARDS STAFF, BUT IS EASILY RE-DIRECTED WHEN THIS OCCURS. PT COMPLAINS OF AN EXTENSIVE AMOUNT OF PAIN IN BACK. MOOD IS STABLE, AFFECT IS FULL RANGE, COMMUNICATION IS NORMAL, APPETITE IS NORMAL. APPEARS SLIGHTLY LERTHARGIC AT TIMES, SLEEPING IN PT ROOM ONCE IN A WHILE, BUT OTHERS THAN THIS STAYS IN MILIEU. PT DENIES SI AT THIS TIME.
[2016-12-24 08:16] VITALS: BP 124/81
[2016-12-24 12:18] VITALS: BP 148/94
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
--- NOTE | 2016-12-24 14:06 | NUR ---
PT HAD A SATISFACTORY DAY TODAY. HE HAS BEEN VISIBLE FOR THE MOST PART OF THE DAY. HE ATTENDED PLANNING MEETING, SHARING THAT HE DID NOT SLEEP VERY WELL AND WAS UP SEVERAL TIMES IN THE EVENING. PT DID NOT ATTEND FOCUS GROUP, COMPLAINING THAT HIS BACK WAS HURTING HIM. PT HAS BEEN COOPERATIVE WITH STAFF DIRECTION, AND DENIES THOUGHTS TO HURT HIMSELF WHEN ASKED THIS MORNING.
[2016-12-24 16:02] VITALS: BP 134/81
[2016-12-24 19:22] VITALS: BP 161/97
--- NOTE | 2016-12-24 21:22 | NUR ---
PT IS STABLE WITH FULL RANGE OF AFFECT. OUT IN THE COMMUNITY FOR THE ENTIRE EVENING SHIFT ENGAGING WITH PEERS/STAFF. PT WAS PLAYING CARD GAMES WITH OTHER PEERS AND IS CURRENTLY SITTING IN THE LOUNGE WATCHING TV. PT IS ALERT AND ORIENTED. CALM AND COOPERATIVE. PT REPORTED HE THINKS HE IS LEAVING TOMORROW PER THE DOCTOR AND " LONG HE CAN GET HIS BROTHER TO PICK HIM UP THEN HE CAN LEAVE". VS ARE STABLE AND DENIES ANY SI/HI TO THIS MHW.
--- NOTE | 2016-12-25 06:23 | NUR ---
PT APPEARED TO SLEEP WELL. PT IS LESS SEDATED. PT BELIEVES HE CAN DISCHARGE TODAY.
[2016-12-25 07:34] VITALS: BP 139/79
--- NOTE | 2016-12-25 10:36 | CP SOUTH PROGRESS NOTE PSYCH ---
Psych (Inpt) Progress Note Progress Note 55 years old, single male, domiciled, living on his own in subsidized housing, unemployed, receiving disability benefits. Hospitalized for suicidal ideation and plan to kill himself He carries a diagnosis of bipolar disorder. We discussed the patient with the nursing staff and interviewed him 1:1 . Continues to be preoccupied with his chronic pain and the fact that it doesn't seem to be well managed during his stay here in the inpatient psychiatric unit. He is again stating that he has medication at home and that he would be better off at home, more comfortable, taking his medication and managing his pain appropriately. The patient denies suicidal/homicidal ideation, auditory/visual hallucinations or side effects from medication. The patient states, and also believes, that he won't hurt himself or hurt anybody else. He is future oriented, planning to move to [place] with his entire family. The patient has good insight and judgment, and is motivated for treatment. The patient understands the risks/benefits/side effects from the medication, and is agreeable to take them. The patient stated that he would prefer to be discharged today, giving all the reasons above mentioned. He will discuss with his [id number] and decide if it is feasible for him to go home today to wait until tomorrow. He is motivated to continue his psychiatric medications on an outpatient basis. He is planning to set up a meeting as soon as possible with Dr. Salazar who is his primary care provider A/P Bipolar disorder, most recent episode depressed, severe, currently in remission Chronic, severe, physical pain We will continue medication as prescribed. The patient will discuss with his [id number] and decide if he is willing to go home today or tomorrow. He is motivated to continue his psychiatric care with an outpatient provider which is still to be announced. We will follow up. More than 50% of this session was spent in counseling and coordination of care.
[2016-12-25 11:55] VITALS: BP 137/94
--- NOTE | 2016-12-25 13:46 | NUR ---
PT WAS VISIBLE IN THE [place]IE[place] TODAY. HIS GOAL WAS TO TALK TO THE DOCTOR ABOUT MEDICATION CONCERNS, AND PREPARE FOR DISCHARGE. PT HAS BEEN COMING TO GROUPS, AND INTERACTING WITH SOME OF HIS PEERS. PT DENIES HAVING THOUGHTS TO HURT HIMSELF WHEN ASKED.
--- NOTE | 2016-12-25 13:59 | NUR ---
[place] [facility] [place] now follow up with previous providers. Mood is stable, full range of affect. Denies thoughts of self harm when asked. Will be given education on suicide prevention and depression.
--- NOTE | 2016-12-25 14:58 | SOCIAL WORKER PROG NOTE PSYCH ---
Social Work Progress Note Progress Note Met with pt he presented as oriented, alert and goal oriented. Pt given referrals to his current outpatient providers Dr. Salazar and Dr. [place], and encouraged/recommended pt follow up with outpatient individual counseling. Pt was given the names of [facility], pt told to call either place for an intake so he can gain more insight to living with chronic pain while managing symptoms of mood instability. Pt agrees he reports feeling good today, denies si/hi/ah/vh, feels connected tof family and neighbor has supports in place, and states " I want to go home". Pt reminded to use family and sober supports as needed and regularly.
[2016-12-25 16:01] VITALS: BP 141/86
[2016-12-25] MEDS ORDERED: NICOTINE PATCH1 EAC3 TOP (16:31)
[2016-12-25] MEDS ORDERED: MINIPRESS1 MG PO (16:31)
[2016-12-25] MEDS ORDERED: SOMA350 M1 PO (16:31)
--- NOTE | 2016-12-25 16:45 | DISCHARGE SUMMARY REPORT-PSYCH ---
See Addendum Visit Information Visit Dates/Diagnosis' Admission Date: 12/15/16 Discharge Date: 12/25/16 Reason for Admission: Suicidal ideation with plan to hang himself in the context of unrelenting pain Psy Discharge Primary Diag: Bipolar Disorder Psy Discharge Secondary Diag: Opioid Dependence Hospital Course Course Complications: None Consultations: The patient was seen for history and physical examination by Dr. Harding ( please refer to his note for details) Allergies: Coded Allergies: diphenhydramine (From BENADRYL) (HYPER PER PT SAYS IT FEELS LIKE BEGINNING OF A PANIC ATTACK 12/15/16) quetiapine (HYPERACTIVE, PER PT STATES HE FELT SUICIDAL 12/15/16) trazodone (WOKE UP FEELING DRUNK, HAD TO TAKE TO MUCH FOR SLEEP HELP 12/15/16) Hospital Course/TX Response: The patient was monitored on the unit for safety, suicidal ideation, mood and physical complaint of pain. He engaged in multimodal treatment, participating on and off in groups and activities on the unit. When he was not participating it was usually on behalf of his intense pain. Over the course of hospitalization the patient's mood improved, suicidal ideation remitted, he felt more hopeful and future oriented. Upon discharge he appears well, is still in pain but looking forward to continuing his medication prescribed by his primary care physician Dr. Salazar. The patient did not have any overt psychosis, did not have any suicidal or homicidal ideation, the patient states and also believes that he won't kill himself or hurt anybody else. The psychiatric medication was monitored on the unit, including Depakote levels (the patient being on Depakote for mood). He responded well to increasing the dose of his antidepressant medication. The patient feels safe to return home and positive for the future. He will go today to his brothers and spends time with him. Discharge HBIPS - Tobacco Use Treatment Offered Post DC Medications Offered: Script Given-See Med List Post DC Tobacco Treatment Plan: Refused Tobcco Tx Pgm - EtOH/Drug Use D/O Treatment Offered Post DC Medications Offered: Med Not Indicated for D/O Post DC EtOH/SubAbuse TX Plan: Other SubAbuse/Dual Pgm ([facility]) Program Appt Date: 12/26/16 (will call for appointment) Metabolic Screening - Screen if on a Neuroleptic Medication - Metabolic screening should include: - Blood Pressure, BMI, Glucose or Hgb A1c, & a - Lipid profile from within the past 365 days. Metabolic Screening ([x]) Not Applicable, patient not on a neuroleptic. OR () Patient on a neuroleptic(s) . Enter below results for Glucose or Hemoglobin A1C, and lipid panel if obtained during the last 365 days. BMI: 28.600 Blood Pressure: 137/94 Laboratory Results (If applicable): Lab ALT 96 U/L H 12/14/162000 AST 48 U/L 12/14/162000 Albumin 4.0 g/dL 12/14/162000 Albumin/Globulin Ratio 1.3 % 12/14/162000 Alkaline Phosphatase 102 U/L 12/14/162000 Anion Gap 12 12/14/162000 BUN 12 mg/dL 12/14/162000 BUN/Creatinine Ratio 17.1 % 12/14/162000 Calcium 8.7 mg/dL 12/14/162000 Carbon Dioxide 23 mmol/L 12/14/162000 Chloride 107 mmol/L 12/14/162000 Creatinine 0.7 mg/dL 12/14/162000 Estimated GFR > 60 ml/min 12/14/162000 Globulin 3.1 gm/dL 12/14/162000 Glucose 83 mg/dL 12/14/162000 Potassium 3.8 mmol/L 12/14/162000 Sodium 142 mmol/L 12/14/162000 TSH 1.460 uIU/mL 12/14/162000 Total Bilirubin 0.5 mg/dL 12/14/162000 Total Protein 7.1 g/dL 12/14/162000 Troponin I < 0.01 ng/ml 12/14/162000 Absolute Basophils 0.1 /CUMM 12/14/162000 Absolute Eosinophils 0.2 /CUMM 12/14/162000 Absolute Granulocytes 5.9 /CUMM 12/14/162000 Absolute Lymphocytes 2.0 /CUMM 12/14/162000 Absolute Monocytes 0.4 /CUMM 12/14/162000 Basophils % 0.8 % 12/14/162000 CBC w Diff NO MAN DIFF REQ 12/14/162000 Eosinophils % 2.7 % 12/14/162000 Gran % 69.0 % 12/14/162000 Hct 38.4 % L 12/14/162000 Hgb 12.9 G/DL L 12/14/162000 Lymphocytes % 23.1 % 12/14/162000 MCH 30.2 PG 12/14/162000 MCV 89.8 FL 12/14/162000 MPV 8.6 FL 12/14/162000 Monocytes % 4.4 % 12/14/162000 PUBS MCHC 33.7 G/DL 12/14/162000 Plt Count 192 /CUMM 12/14/162000 RBC 4.27 /CUMM L 12/14/162000 RDW 15.6 % H 12/14/162000 WBC 8.5 /CUMM 12/14/162000 Amphetamines Screen < 100 NG/ML 12/14/162016 Amphetamines Screen < 100 NG/ML 12/16/16 1143 Barbiturate Screen < 60 NG/ML 12/14/162016 Barbiturate Screen < 60 NG/ML 12/16/16 1143 Methadone Screen < 40 NG/ML 12/14/162016 Methadone Screen > 735 NG/ML H 12/16/16 1143 U Benzodiazepines Scrn < 85 NG/ML 12/14/162016 U Benzodiazepines Scrn > 800 NG/ML H 12/16/16 1143 Ur Phencyclidine Scrn < 6.00 NG/ML 12/14/162016 Ur Phencyclidine Scrn < 6.00 NG/ML 12/16/16 1143 Urine Cannabis Screen < 5.00 NG/ML 12/14/162016 Urine Cannabis Screen < 5.00 NG/ML 12/16/16 1143 Urine Cocaine Screen < 50 NG/ML 12/14/162016 Urine Cocaine Screen 70 NG/ML 12/16/16 1143 Urine Opiates Screen < 100.00 NG/ML 12/14/162016 Urine Opiates Screen 287.00 NG/ML 12/16/16 1143 Valproic Acid 72.6 ug/mL 12/18/16 0610 Valproic Acid 46.7 ug/mL L 12/22/16 0636 Discharge Instructions General Discharge Information Discharge Medications: Discharge Medications- (Dose, route, freq, indication): The patient says he has medication supply at home of Soma 350 mg, he says he is taking one tablet every 6 hours as needed for pain, methadone 10 mg twice a day, oxycodone 10 mg 4 times a day as needed for pain-pain management He will receive prescriptions for Depakote DR 500 mg, 1 tablet by mouth twice a day (as per patient's request, stating that this was his dose as prescribed by his outpatient psychiatrist)-mood and seizure disorder He will receive a prescription for Lexapro tablets 20 mg take 1 tablet by mouth daily-for depression and anxiety and prazosin 1 mg tablets take 1 tablet by mouth at bedtime for 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 Written prescriptions for all of the above for 14 days were given to the patient. Multiple Neuroleptics: () Not Applicable OR Document below three failed attempts at monotherapy, or a plan to taper to monotherapy, or augmentation of Clozapine. () Patient's Diet: Regular Patient's Activity: As tolerated DC Disposition: The patient will discharge home. He will be seeing Dr. Duarte for psychiatric medication prescription, Dr. Salazar as primary care physician, he was referred for individual therapy to [facility] of [address] [place] [address] in [facility], and to [facility] for dual diagnosis treatment Copies To: NIC FUCHS,RIVER
== END 2016-12-25 17:20 | DRG 885 ==
LOC: ENRESERVTM → ENRESERVDT → ERH 18:57 → CP SOUTH 12-15 12:04 → ERHI 12-15 12:04 → CP SOUTH 12-15 13:44
PROVIDERS: Emergency Medicine; ADMIT Psychiatry & Neurology Psychiatry
DX: F31.9 Bipolar disorder, unspecified (principal); F11.10 Opioid abuse, uncomplicated
CPT/HCPCS: 36415; 80307; 93005; 93010; G0480; J3490

== ENCOUNTER 2017-01-09 22:18 | Emergency (ER) | payer OTHER, MEDICARE ==
[~2017-01-09] VITALS: Ht 180.3 cm; Wt 99.8 kg
[~2017-01-09 22:18] MED LIST changes: +MINIPRESS1 MG PO; +SOMA350 M1 PO
--- NOTE | 2017-01-09 22:24 | ED MVC/FALL/TRAUMA COMPLAINT ---
History of Present Illness General Chief Complaint: Lower Extremity Problems Stated Complaint: BIBA FOR LEG PAIN, FALL DOWN 2 STAIRS 18HRS AGO Source: patient, old records, EMS Exam Limitations: no limitations Vital Signs & Intake/Output Vital Signs & Intake/Output Vital Signs Date Time Temp Pulse Resp B/P Pulse O2 O2 Flow FiO2 Ox Delivery Rate 01/09 2226 Room Air 01/09 2226 98.2 77 18 127/82 98 Room Air Allergies Coded Allergies: diphenhydramine (From BENADRYL) (HYPER PER PT SAYS IT FEELS LIKE BEGINNING OF A PANIC ATTACK 12/15/16) quetiapine (HYPERACTIVE, PER PT STATES HE FELT SUICIDAL 12/15/16) trazodone (WOKE UP FEELING DRUNK, HAD TO TAKE TO MUCH FOR SLEEP HELP 12/15/16) Reconcile Medications Alprazolam (Xanax) 0.5 MG TABLET 1 TAB PO Q6 ANXIETY PLEASE CUT THE 2 MG TABS GIVEN TO YOU BY DR. LUCERO AND CUT INTO ONE-FOURTH AND TAKE EVERY 6 HOURS Carisoprodol (Unknown Strength) TABLET 1 TAB PO 4 TIMES/DAY MUSCLE SPASMS ( Reported) continue using home supply Carisoprodol (SOMA) 350 MG TABLET 350 MG PO Q12P PRN PAIN/SPASM Carisoprodol (SOMA) 350 MG TABLET 1 TAB PO TIDPRN PRN muscle spasm Divalproex Sodium 500 MG TABLET.DR 500 MG PO BID MOOD STABILITY (Reported) Escitalopram Oxalate 10 MG TABLET 1 TAB PO DAILY MENTAL HEALTH (Reported) Ibuprofen 800 MG TABLET 1 TAB PO BID PAIN (Reported) Methadone Hydrochloride (Methadone HCl) 10 MG TABLET 1 TAB PO BID CHRONIC PAIN (Reported) Nicotine (Nicotine Patch) 21 MG/24 HOUR PATCH.TD24 21 MG TOP DAILY smoking cessation Nicotine (Nicotine Patch) 21 MG/24 HOUR PATCH.TD24 21 MG TOP DAILY smoking cessation Omeprazole 20 MG CAPSULE.DR 40 MG PO DAILY AC ACID REFLUX Oxycodone HCl 10 MG TABLET 1 TAB PO 4 TIMES/DAY PAIN (Reported) Oxycodone HCl/Acetaminophen (Percocet 5-325 MG Tablet) 5 MG-325 MG TABLET 1 TAB PO 4XDP PRN PAIN TEN...[id number] Prazosin Hydrochloride (Minipress) 1 MG CAPSULE 1 MG PO AT BEDTIME nightmares Triage Nurses Notes Reviewed? yes Onset: Gradual Duration: hour(s): Timing: recent history Severity: moderate Injuries/Fall Location: back Method of Injury: fall Loss of Consciousness: brief (seconds) Modifying Factors: Worsens With: movement. Associated Symptoms: back pain, right knee pain, neck pain HPI: 56 yo gentleman presents after a fall down 4 stairs at 4am this morning. He states it was a mechanical fall, without syncopal symptoms, palpitations, chest pain. He notes pain in his right knee, lower back and neck. He notes no weakness, tingling, headache. He believes he had loss of consciousness briefly. Past History Travel History Traveled to [place] past 21 day No Medical History Any Pertinent Medical History? see below for history Neurological: migraine, seizure (also has some gait problems), SCIATICA TBI EENT: EYE SURGERY Cardiovascular: NONE Respiratory: NONE Gastrointestinal: pancreatitis Hepatic: hepatitis C Renal: NONE Musculoskeletal: chronic back pain, disk herniation, falls, fracture, BROKEN RIGHT FOOT hx skull and jaw fx's Psychiatric: anxiety, bipolar disease, chronic pain disorder, depression, opioid dependence (opioid pain management), substance abuse (hx alcohol and drug abuse) , PANIC ATTACKS benzodiazepine abuse opiate pain management Endocrine: NONE Blood Disorders: NONE Cancer(s): 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 History of MRSA: No History of VRE: No History of CDIFF: No Influenza Vaccine: 08/23/16 Surgical History Surgical History: NECK, SKULL Psychosocial History Who do you live with Patient/Self Services at Home None What is your primary language Portuguese Family History Family History, If Any: No Known Family History. Hx Contributory? No Review of Systems Review of Systems Constitutional: Reports: no symptoms. Eyes: Reports: no symptoms. Ears, Nose, Throat, Mouth: Reports: no symptoms. Respiratory: Reports: no symptoms. Cardiovascular: Reports: no symptoms. Gastrointestinal/Abdominal: Reports: no symptoms. Genitourinary: Reports: no symptoms. Musculoskeletal: Reports: no symptoms. Skin: Reports: no symptoms. Neurological/Psychological: Reports: no symptoms. All Other Systems: Reviewed and Negative Physical Exam Physical Exam General Appearance: well developed/nourished, mild distress Head: atraumatic, normal appearance Eyes: Bilateral: normal appearance, PERRL, EOMI. Ears, Nose, Throat, Mouth: hearing grossly normal, moist mucous membrane Neck: normal inspection, supple, muscle spasm, no midline tenderness Respiratory: normal breath sounds, chest non-tender, no respiratory distress, quiet respiration, lungs clear Cardiovascular: regular rate/rhythm Gastrointestinal: normal bowel sounds, soft, non-tender, no organomegaly Back: normal inspection, muscle spasm, no vertebral tenderness, diffuse muscular tenderness on thoracolumbar spine Extremities: diffuse tenderness to right knee. Ligaments stable. Neurologic/Psych: no motor/sensory deficits, awake, alert, oriented x 3 Skin: intact, normal color, warm/dry Core Measures ACS in differential dx? No Severe Sepsis Present: No Septic Shock Present: No Progress Differential Diagnosis: C/T/L spine injury, ICH Plan of Care: Current Medications Sig/Phuong Start time Last Medication Dose Stop Time Status Admin Carisoprodol 350 MG ONCE ONE 01/09 2345 UNVr (Soma) 01/09 2346 Hydromorphone HCl 1 MG ONCE ONE 01/09 2345 UNVr (Dilaudid) 01/[address] scan of head,neck, spine, xray of right knee. (KAYLIN FUCHS,MARIANELA Johnson) Diagnostic Imaging: Viewed by Me: Radiology Read, CT Scan. Discussed w/RAD: Radiology Read, CT Scan. Radiology Impression: right knee... no fx. mild joint space narrowing. , cerv/ thoracic/lumbar ct... new wedging at t12, old compression fx noted. full report below. , head ct... no acute disease Comments: PATIENT: RIVER GONGORA PRESENT AGE: 56 PATIENT ACCOUNT NO: [id number] : 62 LOCATION: [facility] ORDERING PHYSICIAN: MARIANELA EWING MD SERVICE DATE: 01/09/17 EXAM TYPE: CAT - CT CERV SPINE WO IV CONTRAST; CT LUMB SPINE WO IV CONTRAST; CT THOR SPINE WO IV CONTRAST EXAMINATION: CT CERVICAL SPINE, THORACIC SPINE, LUMBAR SPINE WITHOUT CONTRAST CLINICAL INFORMATION: Pain after trauma. COMPARISON: 11/21/2016. TECHNIQUE: Contiguous helical images of the cervical, thoracic and lumbar spine were obtained without IV contrast. FINDINGS: Anterior cervical spine fusion hardware is intact extending from C5 to C7. There is no evidence for hardware failure or migration. There is disc height loss at C5/C6 and C6/C7. The remaining disc heights are well-preserved. The cervical vertebra are in normal alignment. There is no prevertebral soft tissue swelling. There is no cervical lymphadenopathy. The visualized lung apices are clear. There is an old T9 compression fracture status post vertebroplasty. New from the prior exam is vertebral body height loss at T12 with mild anterior wedging. The thoracic and lumbar vertebra are in normal alignment. Disc heights are well-preserved. Within the visualized lungs, there is mild dependent bibasilar atelectasis. There are no consolidations. There is a nonobstructive 5 mm calculus within the lower pole of left kidney. There is no visualized abdominal or pelvic free fluid. IMPRESSION: New demonstration of T12 vertebral body compression fracture with mild anterior wedging. This is new from the 11/21/2016 study. Consider consultation with Interventional Radiology to determine if treatment is warranted. Stable cervical spine anterior cervical spine fusion hardware. Stable T9 compression fracture status post vertebroplasty. Nonobstructive left renal calculus. DICTATED BY: JAYDEN BETANCOURT MD DATE/TIME DICTATED:01/09/172305 JORDAN WORKER:NAZIA DATE/TIME TRANSCRIBED:01/09/172305 CONFIDENTIAL, DO NOT COPY WITHOUT APPROPRIATE AUTHORIZATION. <Electronically signed in Other Vendor System> SIGNED BY: JAYDEN BETANCOURT MD 01/09/17 8834 PATIENT: RIVER GONGORA PRESENT AGE: 56 PATIENT ACCOUNT NO: [id number] : 64 LOCATION: [facility] ORDERING PHYSICIAN: MARIANELA EWING MD SERVICE DATE: 01/09/17 EXAM TYPE: CAT - CT CERV SPINE WO IV CONTRAST; CT LUMB SPINE WO IV CONTRAST; CT THOR SPINE WO IV CONTRAST EXAMINATION: CT CERVICAL SPINE, THORACIC SPINE, LUMBAR SPINE WITHOUT CONTRAST CLINICAL INFORMATION: Pain after trauma. COMPARISON: 11/21/2016. TECHNIQUE: Contiguous helical images of the cervical, thoracic and lumbar spine were obtained without IV contrast. FINDINGS: Anterior cervical spine fusion hardware is intact extending from C5 to C7. There is no evidence for hardware failure or migration. There is disc height loss at C5/C6 and C6/C7. The remaining disc heights are well-preserved. The cervical vertebra are in normal alignment. There is no prevertebral soft tissue swelling. There is no cervical lymphadenopathy. The visualized lung apices are clear. There is an old T9 compression fracture status post vertebroplasty. New from the prior exam is vertebral body height loss at T12 with mild anterior wedging. The thoracic and lumbar vertebra are in normal alignment. Disc heights are well-preserved. Within the visualized lungs, there is mild dependent bibasilar atelectasis. There are no consolidations. There is a nonobstructive 5 mm calculus within the lower pole of left kidney. There is no visualized abdominal or pelvic free fluid. IMPRESSION: New demonstration of T12 vertebral body compression fracture with mild anterior wedging. This is new from the 11/21/2016 study. Consider consultation with Interventional Radiology to determine if treatment is warranted. Stable cervical spine anterior cervical spine fusion hardware. Stable T9 compression fracture status post vertebroplasty. Nonobstructive left renal calculus. DICTATED BY: JAYDEN BETANCOURT MD DATE/TIME DICTATED:01/09/172305 JORDAN WORKER:NAZIA DATE/TIME TRANSCRIBED:01/09/172305 CONFIDENTIAL, DO NOT COPY WITHOUT APPROPRIATE AUTHORIZATION. <Electronically signed in Other Vendor System> SIGNED BY: JAYDEN BETANCOURT MD 01/09/172317 PATIENT: RIVER GONGORA PRESENT AGE: 56 PATIENT ACCOUNT NO: [id number] : 64 LOCATION: [facility] ORDERING PHYSICIAN: MARIANELA EWING MD SERVICE DATE: 01/09/17 EXAM TYPE: RAD - XRY-KNEE COMPLETE RIGHT EXAMINATION: RIGHT KNEE 3 VIEWS CLINICAL INFORMATION: Right knee pain after fall. COMPARISON: None. TECHNIQUE: AP, lateral, oblique views of the right knee were obtained. FINDINGS: There are no fractures or dislocations. There is mild narrowing to the medial compartment. There is no knee joint effusion. There is no significant soft tissue swelling. IMPRESSION: Mild narrowing to the medial compartment. No evidence for acute injury. DICTATED BY: JAYDEN BETANCOURT MD DATE/TIME DICTATED:01/09/172314 JORDAN WORKER:NAZIA DATE/TIME TRANSCRIBED:01/09/172314 CONFIDENTIAL, DO NOT COPY WITHOUT APPROPRIATE AUTHORIZATION. <Electronically signed in Other Vendor System> SIGNED BY: JAYDEN BETANCOURT MD 01/09/172318 Departure Departure Disposition: HOME OR SELF CARE Condition: Stable Clinical Impression Primary Impression: Fall Secondary Impressions: Compression fracture, Contusion Referrals: ISABELLE MORA MD (PCP/Family) Departure Forms: Customer Survey General Discharge Information Prescriptions: Current Visit Scripts Oxycodone HCl/Acetaminophen (Percocet 5-325 MG Tablet) 1 TAB PO 4XDP PRN PAIN #10 TAB TEN...[id number] Carisoprodol (SOMA) 1 TAB PO TIDPRN PRN muscle spasm #30 TAB Ref 1 Comments 01/09/17, 23:43.... discussed results at length .... pt given supportive medications.... pt has appointment on monday for follow up. I doubt new compression fx is from this event given his clinical exam.
--- NOTE | 2017-01-09 23:09 | CT SCAN REPORT ---
EXAMINATION: CT HEAD WITHOUT CONTRAST CLINICAL INFORMATION: Pain following trauma. COMPARISON: 11/21/2016. TECHNIQUE: Contiguous helical images of the brain were obtained without IV contrast. Multiplanar reconstructions were performed. DLP: 601 mGy-cm. FINDINGS: There are no pathologic extra-axial fluid collections. The lateral, third, fourth ventricles are nondilated and concordant with the appearance of the sulci. There is no evidence for acute intraparenchymal hemorrhage or infarct. There is neither mass nor mass effect. There is no shift of midline structures. The paranasal sinuses and mastoid air cells are clear. There are no osseous lesions. IMPRESSION: No evidence for acute intracranial injury.
--- NOTE | 2017-01-09 23:18 | CT SCAN REPORT ---
EXAMINATION: CT CERVICAL SPINE, THORACIC SPINE, LUMBAR SPINE WITHOUT CONTRAST CLINICAL INFORMATION: Pain after trauma. COMPARISON: 11/21/2016. TECHNIQUE: Contiguous helical images of the cervical, thoracic and lumbar spine were obtained without IV contrast. FINDINGS: Anterior cervical spine fusion hardware is intact extending from C5 to C7. There is no evidence for hardware failure or migration. There is disc height loss at C5/C6 and C6/C7. The remaining disc heights are well-preserved. The cervical vertebra are in normal alignment. There is no prevertebral soft tissue swelling. There is no cervical lymphadenopathy. The visualized lung apices are clear. There is an old T9 compression fracture status post vertebroplasty. New from the prior exam is vertebral body height loss at T12 with mild anterior wedging. The thoracic and lumbar vertebra are in normal alignment. Disc heights are well-preserved. Within the visualized lungs, there is mild dependent bibasilar atelectasis. There are no consolidations. There is a nonobstructive 5 mm calculus within the lower pole of left kidney. There is no visualized abdominal or pelvic free fluid. IMPRESSION: New demonstration of T12 vertebral body compression fracture with mild anterior wedging. This is new from the 11/21/2016 study. Consider consultation with Interventional Radiology to determine if treatment is warranted. Stable cervical spine anterior cervical spine fusion hardware. Stable T9 compression fracture status post vertebroplasty. Nonobstructive left renal calculus.
--- NOTE | 2017-01-09 23:19 | RADIOLOGY REPORT ---
EXAMINATION: RIGHT KNEE 3 VIEWS CLINICAL INFORMATION: Right knee pain after fall. COMPARISON: None. TECHNIQUE: AP, lateral, oblique views of the right knee were obtained. FINDINGS: There are no fractures or dislocations. There is mild narrowing to the medial compartment. There is no knee joint effusion. There is no significant soft tissue swelling. IMPRESSION: Mild narrowing to the medial compartment. No evidence for acute injury.
[2017-01-09] MEDS ORDERED: SOMA350 M1 PO (23:41)
[2017-01-09] MEDS ORDERED: PERCOCET 5-3251 EACH PO (23:41)
[2017-01-10 00:06] VITALS: BP 124/76
== END 2017-01-10 00:08 ==
LOC: ERH 22:18
DX: S22.080A Wedge compression fracture of T11-T12 vertebra, initial encounter for closed fracture (principal); T14.8 Other injury of unspecified body region; M25.561 Pain in right knee; M54.5 Low back pain; M54.2 Cervicalgia; W10.9XXA Fall (on) (from) unspecified stairs and steps, initial encounter; Y93.9 Activity, unspecified
CPT/HCPCS: 73562-RT; 96372

== ENCOUNTER 2017-01-17 11:12 | Emergency (ER) | payer OTHER, MEDICARE ==
[~2017-01-17] VITALS: Ht 177.8 cm; Wt 90.7 kg
[~2017-01-17 11:12] MED LIST changes: +PERCOCET 5-3251 EACH PO
[2017-01-17 11:19] VITALS: BP 154/100
--- NOTE | 2017-01-17 11:37 | ED GENERAL ADULT ---
History of Present Illness General Chief Complaint: Low Back Pain/Injury Stated Complaint: RIGHT ANKLE PAIN, LOWER BACK PAIN Source: patient Exam Limitations: no limitations Vital Signs & Intake/Output Vital Signs & Intake/Output Vital Signs Date Time Temp Pulse Resp B/P Pulse O2 O2 Flow FiO2 Ox Delivery Rate 01/17 1119 97.5 86 20 154/100 98 Room Air Allergies Coded Allergies: diphenhydramine (From BENADRYL) (HYPER PER PT SAYS IT FEELS LIKE BEGINNING OF A PANIC ATTACK 12/15/16) quetiapine (HYPERACTIVE, PER PT STATES HE FELT SUICIDAL 12/15/16) trazodone (WOKE UP FEELING DRUNK, HAD TO TAKE TO MUCH FOR SLEEP HELP 12/15/16) Reconcile Medications Alprazolam (Xanax) 0.5 MG TABLET 1 TAB PO Q6 ANXIETY PLEASE CUT THE 2 MG TABS GIVEN TO YOU BY DR. LUCERO AND CUT INTO ONE-FOURTH AND TAKE EVERY 6 HOURS Carisoprodol (Unknown Strength) TABLET 1 TAB PO 4 TIMES/DAY MUSCLE SPASMS ( Reported) continue using home supply Carisoprodol (SOMA) 350 MG TABLET 350 MG PO Q12P PRN PAIN/SPASM Carisoprodol (SOMA) 350 MG TABLET 1 TAB PO TIDPRN PRN muscle spasm Divalproex Sodium 500 MG TABLET.DR 500 MG PO BID MOOD STABILITY (Reported) Escitalopram Oxalate 10 MG TABLET 1 TAB PO DAILY MENTAL HEALTH (Reported) Ibuprofen 800 MG TABLET 1 TAB PO BID PAIN (Reported) Meloxicam (Mobic) 15 MG TABLET 1 TAB PO DAILY PRN PAIN Methadone Hydrochloride (Methadone HCl) 10 MG TABLET 1 TAB PO BID CHRONIC PAIN (Reported) Nicotine (Nicotine Patch) 21 MG/24 HOUR PATCH.TD24 21 MG TOP DAILY smoking cessation Nicotine (Nicotine Patch) 21 MG/24 HOUR PATCH.TD24 21 MG TOP DAILY smoking cessation Omeprazole 20 MG CAPSULE.DR 40 MG PO DAILY AC ACID REFLUX Oxycodone HCl 10 MG TABLET 1 TAB PO 4 TIMES/DAY PAIN (Reported) Oxycodone HCl/Acetaminophen (Percocet 5-325 MG Tablet) 5 MG-325 MG TABLET 1 TAB PO 4XDP PRN PAIN TEN...[id number] Prazosin Hydrochloride (Minipress) 1 MG CAPSULE 1 MG PO AT BEDTIME nightmares Triage Note: PT TO ED REQUESTING PAIN MEDS. PT STATES HE HAS A FRACTURED SPINE AND A BAD RIGHT ANKLE. RECENTLY HAD CAT SCAN OF SPINE. WAS TOLD IF HE NEEDED PAIN MEDS TO COME TO ED. Triage Nurses Notes Reviewed? yes Onset: Abrupt Duration: week(s): Timing: recent history HPI: 01/17/17 12 PM This is a 56-year-old male presents to the emergency department with an exacerbation of chronic pain. The patient states that he's had an ankle injury recently and also has compression fractures of his lower spine. He says that he was given a consultation with IR for vertebroplasty. He also says that he has a history of chronic pain and has been in the pain clinic in the past. He also has anxiety and is requesting Xanax. The onset of the symptoms have been abrupt , the duration has been for months, the severity is significant; as his symptoms required him to come to the emergency department for care; on physical examination he does have some right lateral malleolus tenderness and swelling on the right. He also has some upper lumbar vertebral tenderness. The remainder of the exam is unremarkable. Past History Travel History Traveled to [place] past 21 day No Medical History Any Pertinent Medical History? see below for history Neurological: migraine, seizure (also has some gait problems), SCIATICA TBI EENT: EYE SURGERY Cardiovascular: NONE Respiratory: NONE Gastrointestinal: pancreatitis Hepatic: hepatitis C Renal: NONE Musculoskeletal: chronic back pain, disk herniation, falls, fracture, BROKEN RIGHT FOOT hx skull and jaw fx's Psychiatric: anxiety, bipolar disease, chronic pain disorder, depression, opioid dependence (opioid pain management), substance abuse (hx alcohol and drug abuse) , PANIC ATTACKS benzodiazepine abuse opiate pain management Endocrine: NONE Blood Disorders: NONE Cancer(s): NONE 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 History of MRSA: No History of VRE: No History of CDIFF: No Surgical History Surgical History: NECK, SKULL Psychosocial History Who do you live with Patient/Self Services at Home None What is your primary language Sinhala Tobacco Use: Current Daily Use Daily Tobacco Use Amount/Type: => 5 Cigarettes daily ETOH Use: denies use Illicit Drug Use: denies illicit drug use Family History Family History, If Any: No Known Family History. Hx Contributory? No Review of Systems Review of Systems Constitutional: Denies: fever. EENTM: Reports: no symptoms. Respiratory: Reports: no symptoms. Cardiovascular: Reports: no symptoms. GI: Reports: no symptoms. Genitourinary: Reports: no symptoms. Musculoskeletal: Reports: back pain. Skin: Reports: no symptoms. Neurological/Psychological: Reports: no symptoms. Hematologic/Endocrine: Reports: no symptoms. Immunologic/Allergic: Reports: no symptoms. Physical Exam Physical Exam General Appearance: alert, awake, anxious, mild distress Head: atraumatic, normal appearance Eyes: Bilateral: normal appearance, PERRL, EOMI. Ears, Nose, Throat: normal pharynx, normal ENT inspection Neck: normal inspection, supple Respiratory: normal breath sounds, chest non-tender, no respiratory distress Cardiovascular: regular rate/rhythm Peripheral Pulses: 4+ radial (R), 4+ radial (L) Gastrointestinal: non-tender Back: decreased range of motion Extremities: swelling, tenderness, right lateral malleolus, no ligament instability Neurologic/Psych: no motor/sensory deficits, awake, alert, oriented x 3 Skin: intact, normal color, warm/dry Comments: The patient was treated with by mouth Xanax. He was offered nonnarcotic analgesics including Toradol. He declined. He was offered a posterior splint for the right ankle, he also declined. He was instructed to follow-up with his doctor this week and continue his medications as directed. Core Measures ACS in differential dx? No CVA/TIA Diagnosis: No Severe Sepsis Present: No Septic Shock Present: No Progress Differential Diagnoses I considered the following diagnoses in my evaluation of the patient: [ Exacerbation of chronic pain, fracture, sprain, dislocation, drug dependency] Plan of Care: Current Medications Sig/Phuong Start time Last Medication Dose Stop Time Status Admin Ketorolac 60 MG ONCE ONE 01/17 1215 AC Tromethamine 01/17 1216 (Toradol) Initial ED EKG: none Departure Departure Disposition: HOME OR SELF CARE Condition: Stable Clinical Impression Primary Impression: Vertebral compression fracture Secondary Impressions: Chronic pain Referrals: ISABELLE MORA MD (PCP/Family) Departure Forms: Customer Survey General Discharge Information Prescriptions: Current Visit Scripts Meloxicam (Mobic) 1 TAB PO DAILY PRN PAIN #[address] scan from his prior visit was reviewed PATIENT: RIVER GONGORA PRESENT AGE: 56 PATIENT ACCOUNT NO: [id number] : 64 LOCATION: [facility] ORDERING PHYSICIAN: MARIANELA EWING MD SERVICE DATE: 01/09/17 EXAM TYPE: CAT - CT CERV SPINE WO IV CONTRAST; CT LUMB SPINE WO IV CONTRAST; CT THOR SPINE WO IV CONTRAST EXAMINATION: CT CERVICAL SPINE, THORACIC SPINE, LUMBAR SPINE WITHOUT CONTRAST CLINICAL INFORMATION: Pain after trauma. COMPARISON: 11/21/2016. TECHNIQUE: Contiguous helical images of the cervical, thoracic and lumbar spine were obtained without IV contrast. FINDINGS: Anterior cervical spine fusion hardware is intact extending from C5 to C7. There is no evidence for hardware failure or migration. There is disc height loss at C5/C6 and C6/C7. The remaining disc heights are well-preserved. The cervical vertebra are in normal alignment. There is no prevertebral soft tissue swelling. There is no cervical lymphadenopathy. The visualized lung apices are clear. There is an old T9 compression fracture status post vertebroplasty. New from the prior exam is vertebral body height loss at T12 with mild anterior wedging. The thoracic and lumbar vertebra are in normal alignment. Disc heights are well-preserved. Within the visualized lungs, there is mild dependent bibasilar atelectasis. There are no consolidations. There is a nonobstructive 5 mm calculus within the lower pole of left kidney. There is no visualized abdominal or pelvic free fluid. IMPRESSION: New demonstration of T12 vertebral body compression fracture with mild anterior wedging. This is new from the 11/21/2016 study. Consider consultation with Interventional Radiology to determine if treatment is warranted. Stable cervical spine anterior cervical spine fusion hardware. Stable T9 compression fracture status post vertebroplasty. Nonobstructive left renal calculus. DICTATED BY: JAYDEN BETANCOURT MD DATE/TIME DICTATED:01/09/172305 MEATCUTTER:NAZIA DATE/TIME TRANSCRIBED:01/09/172305 CONFIDENTIAL, DO NOT COPY WITHOUT APPROPRIATE AUTHORIZATION. <Electronically signed in Other Vendor System> SIGNED BY: JAYDEN BETANCOURT MD 01/09/17 0911 YOUR PRECRIPTION IS AT [facility] Critical Care Note Critical Care Note Critical Care Time: non-applicable
[2017-01-17] MEDS ORDERED: MOBIC15 M1 PO (12:09)
--- NOTE | 2017-02-22 16:59 | INTERVENTIONAL RADIOLOGY RPT ---
NEW PATIENT CONSULT: 02/22/2017 OFFICE TIME: 45 minutes, greater than 50% of which was spent in counseling and coordination of care. PATIENT: Magdi Granados : 1960 Age: 56, male Referring Physician: Trupti Acosta MD Appointment Reason: IR - CONSULT OFFICE CHIEF COMPLAINTS: Back pain. HISTORY OF PRESENT ILLNESS: Mr. Granados is a 56 year old male with worsening low back pain and past medical history as below. The patient states that he has had chronic back pain for several years and has been under the care of a interventional pain physician in [place]. He has undergone numerous pain injections in the past and was on methadone and other narcotics while under his care. However, he recently had a falling out with the pain management physician and is currently in the process of finding a new pain management practice. The patient states that he fell down flight of stairs on 01/09/2017 and developed severe acute back pain which has persisted since the fall. He presented to the [facility] emergency department and a CT of his cervical, thoracic and lumbar spine was obtained. This demonstrated a new T12 vertebral body compression fracture with mild anterior wedging. Stable cervical spine anterior fusion hardware and a stable T9 compression fracture status post vertebral augmentation. His pain is constant and 9 out of 10 in intensity. The pain is aggravated with prolonged standing, bending, twisting and lying down. His symptoms are minimally improved with rest, muscle relaxants and Percocet. He states that the pain has worsened over the past few weeks and it is interfering with his ability to perform activities of daily living. He presents today to discuss vertebral augmentation. ALLERGIES: Seroquel Trazodone MEDICATIONS PRESCRIBED BY THIS OFFICE: No Medications Prescribed From This Office MEDICATIONS PRESCRIBED BY OUTSIDE PROVIDER/OTC: 1. Xanax up to 2 mg by mouth when necessary every 6 hours 2. Depakote 1000 mg by mouth q. daily 3. Soma 350 mg by mouth 3 times a day 4. Percocet 10 mg by mouth 4 times per day 5. Ibuprofen 800 mg by mouth 2 times per day. PAST MEDICAL HISTORY: Chronic low back pain, hepatitis C, depression, hypothyroidism, hyperlipidemia, anxiety, hypertension PAST SURGICAL HISTORY: Cholecystectomy, hernia repair, tonsillectomy, cervical spine fusion, leg and arm surgery with metal plates, T9 vertebral augmentation 06/04/2014 at [facility]. SOCIAL HISTORY: Alcohol Use: None Tobacco Use: 1 pack per day Marital Status: Occupation: Disabled FAMILY HISTORY: Mother and father are , 2 brothers and 1 sister alive with no medical conditions. REVIEW OF SYSTEMS: General: Denies fever, weight loss, fatigue or night sweats Cardiovascular: Denies chest pain, angina, high blood pressure, irregular pulse, heart murmur or high cholesterol. Vascular: Denies swelling in hands or feet, leg pain while walking, leg pain at rest, leg ulcers, foot ulcers or gangrene Respiratory: Denies shortness of breath, cough, pneumonia, bronchitis. Gastrointestinal: Positive for hepatitis C. Denies indigestion, nausea, constipation Genitourinary: Denies urinary tract infection, painful urination, blood in urine, difficulty starting or stopping stream, incontinence or kidney stone Musculoskeletal: Positive for back pain, joint pain, arthritis, neck pain and history of broken bones Integumentary: Denies skin disease, skin cancer, breast pain, tenderness or swelling Neurological: Denies fainting spells or black outs, seizures, difficulty with speech, double or blurred vision, facial weakness or incoordination in arms and or legs Eyes/Ears: Denies poor eyesight, glaucoma, hearing loss, ear infection, balance disturbances like vertigo or spinning Nose/Mouth/Throat: Denies nosebleeds, nasal congestion, excessive nasal drainage, sinus problems, sore throat or mouth sores Endocrine: Positive for history of thyroid disease Hematologic/Lymphatic: Denies anemia, bleeding tendencies, persistent swollen glands, swollen lymph nodes or blood transfusion Allergic/Immunologic: Denies food allergies, inhalant allergies or immunologic disorder Psychiatric: Positive for anxiety and depression. VITALS: Date/Time: 02/22/2017 Blood Pressure: 177/116 Pulse: 95 Respirations: 22 Temperature: 97.1 F Weight: 200 lbs 0 oz Height: 71 inches O2 Saturation: 99 PHYSICAL EXAM: General: No acute distress. Alert and oriented times 3. HEENT: No scleral icterus. Mucous membranes moist. No jugular venous distention. Lungs: Breathing unlabored. CTA bilaterally. CV: RRR, S1-S2, no murmurs. Abdomen: Nondistended. Soft. Nontender. Extremities: No peripheral edema or clubbing. MSK: Evaluation of the patient's back demonstrates pain throughout the entire thoracic spine upon palpation with more intense pain around the T12 level. No deformities of the lower back noted. Painful with flexion greater than extension. Skin: No jaundice. LABS: N/A IMAGING: CT of the cervical, thoracic and lumbar spines 01/09/2017: 1. New demonstration of T12 vertebral body compression fracture with mild anterior wedging. This is new from the 11/21/2016 study. 2. Stable cervical spine anterior cervical spine fusion hardware. 3. Stable T9 compression fracture status post vertebroplasty. ASSESSMENT AND PLAN: 56-year-old male with worsening back pain and new traumatic osteoporotic T12 compression fracture, presents for evaluation for possible vertebral augmentation. The patient complains of 9 out of 10 pain which is exacerbated by movement. The pain has become quite debilitating, where he is no longer able to ambulate without significant pain. Given the patient's ongoing symptoms despite conservative therapy, including narcotic analgesics, treatment with vertebral augmentation is indicated. We discussed the risks and benefits of vertebral augmentation/kyphoplasty in great detail during today's visit. We specifically discussed the benefits of treating his acute back pain and stabilizing the T12 vertebral body from further height loss. We discussed the risks of bleeding, infection, damage to spinal canal and cement embolization/extravasation associated with the procedure. We also discussed that the vertebral augmentation may or may not relieve his pain completely, especially since he has chronic pain related to other issues. We will obtain an MRI of his thoracic and lumbar spine to assess for any additional radiographically occult fractures. The patient is requesting the procedure to be done with general anesthesia as it was required during his T9 vertebral augmentation. He was agreeable to go forward with the procedure and the following treatment plan outlined below. 1. MRI of the thoracic and lumbar spine 2. Preprocedure laboratory analysis and anesthesia consultation. 3. T12 vertebral augmentation pending MRI findings. The procedure will be scheduled at [facility]. 4. One month post procedure clinic follow-up with lumbar spine radiographs. Thank you for referring Mr. Granados to the Interventional radiology section of [facility]. As always, please do not hesitate to contact me with any questions or suggestions. The patient was instructed to call should any questions arise between now and the procedure date. The patient's blood pressure was noted to be elevated during today's examination which he attributes to pain. He was advised to follow-up with his primary care physician. Sincerely, Brendan Hubbard D.O.
== END 2017-01-17 12:49 ==
LOC: ERH 11:12
DX: G89.29 Other chronic pain (principal); S32.000D Wedge compression fracture of unspecified lumbar vertebra, subsequent encounter for fracture with routine healing
CPT/HCPCS: 96372; J1885

== ENCOUNTER 2017-03-02 14:38 | Emergency (ER) | payer OTHER, MEDICARE ==
[~2017-03-02] VITALS: Ht 177.8 cm; Wt 90.7 kg
[~2017-03-02 14:38] MED LIST changes: +MOBIC15 M1 PO
[2017-03-02 14:59] VITALS: BP 148/89
--- NOTE | 2017-03-02 18:35 | ED PSYCHIATRIC COMPLAINT ---
History of Present Illness General Chief Complaint: Psychiatric Related Complaint Stated Complaint: BIBA FOR SI STATEMENT TO DOCTOR Source: patient Exam Limitations: no limitations Vital Signs & Intake/Output Vital Signs & Intake/Output Vital Signs Date Time Temp Pulse Resp B/P B/P Pulse O2 O2 Flow FiO2 Mean Ox Delivery Rate 03/02 1459 98.1 95 20 148/89 100 Room Air Allergies Coded Allergies: diphenhydramine (From BENADRYL) (HYPER PER PT SAYS IT FEELS LIKE BEGINNING OF A PANIC ATTACK 12/15/16) quetiapine (HYPERACTIVE, PER PT STATES HE FELT SUICIDAL 12/15/16) trazodone (WOKE UP FEELING DRUNK, HAD TO TAKE TO MUCH FOR SLEEP HELP 12/15/16) Reconcile Medications Alprazolam (Xanax) 0.5 MG TABLET 1 TAB PO Q6 ANXIETY PLEASE CUT THE 2 MG TABS GIVEN TO YOU BY DR. LUCERO AND CUT INTO ONE-FOURTH AND TAKE EVERY 6 HOURS Carisoprodol (Unknown Strength) TABLET 1 TAB PO 4 TIMES/DAY MUSCLE SPASMS ( Reported) continue using home supply Carisoprodol (SOMA) 350 MG TABLET 350 MG PO Q12P PRN PAIN/SPASM Carisoprodol (SOMA) 350 MG TABLET 1 TAB PO TIDPRN PRN muscle spasm Divalproex Sodium 500 MG TABLET.DR 500 MG PO BID MOOD STABILITY (Reported) Escitalopram Oxalate 10 MG TABLET 1 TAB PO DAILY MENTAL HEALTH (Reported) Ibuprofen 800 MG TABLET 1 TAB PO BID PAIN (Reported) Meloxicam (Mobic) 15 MG TABLET 1 TAB PO DAILY PRN PAIN Methadone Hydrochloride (Methadone HCl) 10 MG TABLET 1 TAB PO BID CHRONIC PAIN (Reported) Nicotine (Nicotine Patch) 21 MG/24 HOUR PATCH.TD24 21 MG TOP DAILY smoking cessation Nicotine (Nicotine Patch) 21 MG/24 HOUR PATCH.TD24 21 MG TOP DAILY smoking cessation Omeprazole 20 MG CAPSULE.DR 40 MG PO DAILY AC ACID REFLUX Oxycodone HCl 10 MG TABLET 1 TAB PO 4 TIMES/DAY PAIN (Reported) Oxycodone HCl/Acetaminophen (Percocet 5-325 MG Tablet) 5 MG-325 MG TABLET 1 TAB PO 4XDP PRN PAIN TEN...[id number] Prazosin Hydrochloride (Minipress) 1 MG CAPSULE 1 MG PO AT BEDTIME nightmares Triage Note: PT BIBA ON PEER FROM HOME FOR +SI. PER EMS AND PEER, PT WAS ON THE PHONE WITH HIS PAIN MD AND SAID "THE LIBAN NIS SO BAD I WANT TO KILL MYSELF". PT DENIES SI OR HI AT THIS TIME. Triage Nurses Notes Reviewed? yes HPI: Patient presents for evaluation of possible suicide ideation. Patient states that he was on the phone with the pain management clinic when he stated he was in so much pain that he would rather be . Apparently he missed his ride to the facility and was trying to make arrangements for follow-up appointment. He has been having severe chronic pain and he became angry that he was unable to be seen promptly. He states he made his comments jokingly. Past History Travel History Traveled to [place] past 21 day No Medical History Any Pertinent Medical History? see below for history Neurological: migraine, seizure (also has some gait problems), SCIATICA TBI EENT: EYE SURGERY Cardiovascular: NONE Respiratory: NONE Gastrointestinal: pancreatitis Hepatic: hepatitis C Renal: NONE Musculoskeletal: chronic back pain, disk herniation, falls, fracture, BROKEN RIGHT FOOT hx skull and jaw fx's Psychiatric: anxiety, bipolar disease, chronic pain disorder, depression, opioid dependence (opioid pain management), substance abuse (hx alcohol and drug abuse) , PANIC ATTACKS benzodiazepine abuse opiate pain management Endocrine: NONE Blood Disorders: NONE Cancer(s): NONE 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 History of MRSA: No History of VRE: No History of CDIFF: No Influenza Vaccine: 08/23/17 Surgical History Surgical History: NECK, SKULL Psychosocial History Who do you live with Patient/Self Services at Home None What is your primary language Maltese Family History Family History, If Any: No Known Family History. Hx Contributory? No Review of Systems Review of Systems Constitutional: Reports: no symptoms. EENTM: Reports: no symptoms. Respiratory: Reports: no symptoms. Cardiovascular: Reports: no symptoms. GI: Reports: no symptoms. Genitourinary: Reports: no symptoms. Musculoskeletal: Reports: see HPI. Skin: Reports: no symptoms. Neurological/Psychological: Reports: no symptoms. Hematologic/Endocrine: Reports: no symptoms. Immunologic/Allergic: Reports: no symptoms. All Other Systems: Reviewed and Negative Physical Exam Physical Exam General Appearance: see below Neurological/Psychiatric: see below Comments: Gen.: Well-nourished, well-developed, no acute respiratory distress. Head: Normocephalic, atraumatic. Eyes: Normal inspection bilaterally Ears: Normal inspection bilaterally Nose: Normal inspection Throat/mouth : Moist mucosa Neck: Supple, full range of motion, no goiter Heart: Regular rate and rhythm, no murmurs rubs or gallops Lungs: Clear to auscultation bilaterally with normal air entry Chest: Nontender Back: Normal range of motion Abdomen: Soft, nontender, nondistended, normal bowel sounds Extremities: Normal range of motion grossly, equal radial pulses, no cyanosis clubbing or edema Neurologic: Cranial nerves grossly intact, speech is clear Skin: warm and dry Psychiatric: Calm, cooperative, no apparent delusions or hallucinations SAD PERSONS Done? patient not suicidal Progress Differential Diagnosis: anger, depression/suicide ideation, bipolar disorder, poor impulse control Plan of Care: Orders Procedure Date/time Status URINE DRUG SCREEN FOR ER ONLY 03/02 1539 Complete Laboratory Tests 03/02/17 1531: Urine Opiates Screen < 100.00, Methadone Screen < 40, Barbiturate Screen < 60, Ur Phencyclidine Scrn < 6.00, Amphetamines Screen < 100, U Benzodiazepines Scrn > 800 H, Urine Cocaine Screen 51, Urine Cannabis Screen 5.70 Comments: I have asked Magdi once again if he had any intent to harm himself based on history provided. He adamantly denies any intent to harm himself. I feel he is being genuine and he likely spoke out of anger and frustration. I feel he is stable for discharge. Departure Departure Disposition: HOME OR SELF CARE Condition: Stable Clinical Impression Primary Impression: Chronic pain Qualifiers: Chronic pain type: chronic pain syndrome Qualified Code: G89.4 - Chronic pain syndrome Secondary Impressions: Poor impulse control Referrals: ISABELLE MORA MD (PCP/Family) Additional Instructions: Percocet as prescribed. Follow-up with your primary care physician this week for reevaluation. Return if any concerns or sudden worsening. Departure Forms: Customer Survey General Discharge Information Prescriptions: Current Visit Scripts Oxycodone HCl/Acetaminophen (Percocet 5-325 MG Tablet) 1 TAB PO Q8P PRN pain #10 TAB
[2017-03-02] MEDS ORDERED: PERCOCET 5-3251 EACH PO (19:17)
== END 2017-03-02 19:35 ==
LOC: ERH 14:38
DX: G89.29 Other chronic pain (principal); R45.87 Impulsiveness
CPT/HCPCS: 80307

== ENCOUNTER 2017-03-16 10:57 | Emergency (ER) | payer OTHER, MEDICARE ==
[~2017-03-16] VITALS: Ht 177.8 cm; Wt 90.7 kg
[2017-03-16 11:10] VITALS: BP 152/103
[2017-03-16] MEDS ORDERED: BUPROPION HCL100 M3 PO (11:28)
[2017-03-16] MEDS ORDERED: OXYCODONE-ACET1 EACH PO (11:32)
[2017-03-16] MEDS ORDERED: SOMA350 M1 PO (11:33)
[2017-03-16] MEDS ORDERED: CLONAZEPAM2 M2 PO (11:35)
[2017-03-16] MEDS ORDERED: BACLOFEN10 M1 PO (11:51)
[2017-03-16] MEDS ORDERED: MOBIC15 M1 PO (11:51)
--- NOTE | 2017-03-16 11:51 | ED NECK/BACK PAIN COMPLAINT ---
History of Present Illness General Chief Complaint: Low Back Pain/Injury Stated Complaint: LBP Source: patient Exam Limitations: no limitations Vital Signs & Intake/Output Vital Signs & Intake/Output Vital Signs Date Time Temp Pulse Resp B/P B/P Pulse O2 O2 Flow FiO2 Mean Ox Delivery Rate 03/16 1110 98.1 101 15 152/103 98 Room Air Room Air Allergies Coded Allergies: diphenhydramine (From BENADRYL) (HYPER PER PT SAYS IT FEELS LIKE BEGINNING OF A PANIC ATTACK 03/16/17) quetiapine (HYPERACTIVE, PER PT STATES HE FELT SUICIDAL 03/16/17) trazodone (WOKE UP FEELING DRUNK, HAD TO TAKE TO MUCH FOR SLEEP HELP 03/16/17) Reconcile Medications Alprazolam (Xanax) 0.5 MG TABLET 1 TAB PO Q6 ANXIETY PLEASE CUT THE 2 MG TABS GIVEN TO YOU BY DR. LUCERO AND CUT INTO ONE-FOURTH AND TAKE EVERY 6 HOURS Baclofen 10 MG TABLET 1 TAB PO TID spasms Bupropion HCl (Bupropion HCl Sr) 100 MG TABLET.ER 1 TAB PO QAM MENTAL HEALTH (Reported) Carisoprodol (SOMA) 350 MG TABLET 1 TAB PO BIDP PRN MUSCLE SPASMS (Reported) Clonazepam 2 MG TABLET 2.5 TAB PO BID PAIN (Reported) Divalproex Sodium 500 MG TABLET.DR 500 MG PO BID MOOD STABILITY (Reported) Escitalopram Oxalate 10 MG TABLET 1 TAB PO DAILY MENTAL HEALTH (Reported) Meloxicam (Mobic) 15 MG TABLET 1 TAB PO DAILY pain Methadone Hydrochloride (Methadone HCl) 10 MG TABLET 1 TAB PO BID CHRONIC PAIN (Reported) Oxycodone HCl/Acetaminophen (Oxycodone-Acetaminophen 5-325) 5 MG-325 MG TABLET 1 TAB PO TIDPRN PRN PAIN (Reported) Triage Note: PT TO ED FOR C/C OF INCREASED WORSENING OF CHRONIC BACK AND R FOOT PAIN. PT REPORTS HE HASN'T TAKEN ANYTHING FOR PAIN. PT REPORTS R ANKLE TWISTED WHILE WALKING DOWN STAIRS. PT AMBULATORY INTO TRIAGE. PT MEDICATED WITH MOTRIN IN TRIAGE FOR PAIN. Triage Nurses Notes Reviewed? yes Onset: Abrupt Duration: chronic Timing: recent history Quality/Severity: moderate, severe Location: T-spine, lumbar spine Loss of Consciousness: no loss of consciousness HPI: 56-year-old male comes into emergency room with complaints of chronic back pain. Patient reports that he has a fracture in his thoracic vertebrae that he is supposed to possibly get a procedure for with interventional radiology. Patient here requesting pain medication. Patient sees Dr. ordoñez . He reports that she does not give him anything for the pain. Pain is chronic. Sharp. Patient also reports of some chronic ankle pain for a few months since after an injury. Patient has been seen here for overdose in the past. Past History Travel History Traveled to [place] past 21 day No Medical History Any Pertinent Medical History? see below for history Neurological: migraine, seizure (also has some gait problems), SCIATICA TBI EENT: EYE SURGERY Cardiovascular: NONE Respiratory: NONE Gastrointestinal: pancreatitis Hepatic: hepatitis C Renal: NONE Musculoskeletal: chronic back pain, disk herniation, falls, fracture, BROKEN RIGHT FOOT hx skull and jaw fx's Psychiatric: anxiety, bipolar disease, chronic pain disorder, depression, opioid dependence (opioid pain management), substance abuse (hx alcohol and drug abuse) , PANIC ATTACKS benzodiazepine abuse opiate pain management Endocrine: NONE Blood Disorders: NONE Cancer(s): NONE 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 History of MRSA: No History of VRE: No History of CDIFF: No Surgical History Surgical History: NECK, SKULL Psychosocial History Who do you live with Patient/Self Services at Home None What is your primary language Khmer Tobacco Use: Current Daily Use Daily Tobacco Use Amount/Type: => 5 Cigarettes daily ETOH Use: denies use Illicit Drug Use: marijuana Family History Family History, If Any: No Known Family History. Hx Contributory? No Review of Systems Review of Systems Constitutional: Reports: no symptoms. Eyes: Reports: no symptoms. Ears, Nose, Throat, Mouth: Reports: no symptoms. Respiratory: Reports: no symptoms. Cardiovascular: Reports: no symptoms. Gastrointestinal/Abdominal: Reports: no symptoms. Musculoskeletal: Reports: see HPI. Skin: Reports: no symptoms. Neurological/Psychological: Reports: no symptoms. All Other Systems: Reviewed and Negative Physical Exam Physical Exam General Appearance: well developed/nourished, mild distress Head: atraumatic Eyes: Bilateral: normal appearance. Ears, Nose, Throat, Mouth: hearing grossly normal, moist mucous membrane Neck: normal inspection Respiratory: no respiratory distress Cardiovascular: regular rate/rhythm Back: normal inspection, tenderness paraspinal/vertebral Extremities: normal range of motion Neurologic/Psych: awake, alert, oriented x 3, normal mood/affect Skin: intact, normal color, warm/dry Progress Differential Diagnosis: C spine injury, cauda equina syn, herniated disc, myofascial strain, pyelo/UTI, sciatica, spinal cord inj, thoracic outlet syn, T/ L spine injury, ureterolithiasis, drug-seeking Plan of Care: Current Medications Sig/Phuong Start time Last Medication Dose Stop Time Status Admin Alprazolam 2 MG ONCE ONE 03/16 1200 AC (Xanax) 03/16 1201 Comments: 03/16/2017 12:02:30 PM Patient was counseled on pain control. I explained to him I cannot give him any controlled substance to go home with. Patient has been seen here for overdoses in the past. Patient reports that he forgot to take his Xanax today and he is supposed to get MRI this afternoon. I told him I can give him 1 dose of Xanax here but no controlled substances ago home with. He needs to follow-up with pain management. This is a chronic issue for the patient. There are no changes in regards to his normal baseline. Departure Departure Disposition: HOME OR SELF CARE Condition: Stable Clinical Impression Primary Impression: Acute exacerbation of chronic low back pain Referrals: ISABELLE MORA MD (PCP/Family) Additional Instructions: Take Motrin and baclofen as prescribed. Follow-up your primary care doctor. Return if any other concerns. Please go over all results of today's visit with your primary care doctor. Contact your primary care doctor to let them know you were here in the emergency room. There may be nonspecific findings which may not be related to your visit today here in the emergency room but may require further evaluation and chronic monitoring by your primary care doctor. If you had a laceration today the chance of foreign body always remains. You should follow-up with your primary care doctor for recheck in 3-5 days for a wound check. If you had an x-ray done there is a chance that a fracture could have been missed on initial read and you should follow-up with your primary care doctor for repeat x-rays if symptoms persist. If your blood pressure was elevated here in the emergency room please have rechecked by her primary care doctor within the next 48 hours by your primary care doctor. If you were prescribed a narcotic here in the emergency room or any type of controlled substances you're not allowed to drive while taking this medication or operate any type of heavy machinery. Narcotics can make you feel lightheaded dizziness nausea and can cause constipation. You may need to case picker a stool softener. Thank you for choosing [facility] emergency room. Please return to the emergency room immediately if you have any other concerns worsening of symptoms. Departure Forms: Customer Survey General Discharge Information Prescriptions: Current Visit Scripts Baclofen 1 TAB PO TID #15 TAB Meloxicam (Mobic) 1 TAB PO DAILY #15 TAB
== END 2017-03-16 12:03 ==
LOC: ERH 10:57
DX: G89.29 Other chronic pain (principal); M54.5 Low back pain
CPT/HCPCS: 72146; 72148; 36415

== ENCOUNTER 2017-04-16 14:13 | Observation (INO) | payer OTHER, MEDICARE ==
[~2017-04-16] VITALS: Ht 177.8 cm; Wt 87.5 kg
[~2017-04-16 14:13] MED LIST changes: +BACLOFEN10 M1 PO; +BUPROPION HCL100 M3 PO; +CLONAZEPAM2 M2 PO; +OXYCODONE-ACET1 EACH PO
--- NOTE | 2017-04-16 14:24 | NUR ---
56 YEAR OLD MALE TO ER VIA AMBULANCE AFTER EMS STATES THAT THEY WERE CALLED FOR A WELFARE CHECK , ON THERE ARRIVAL PT AWAKE AND ALERT TO PERSON AND PLACE , BUT NOTED TO BE VERY DROWSY. ON ARRIVAL TO ER PT AWAKE AND NOTED WITH SLURRED SPEECH,. DENIES ETOH/SI/HI. STATES THAT HER TOOK EXTRA XANAX AND OXYCODONE TO KILL HIS PAIN . PER PT HE STATES THAT IT WAS TO KILLL HIS PHYSICAL AND MENTAL PAIN. PT PAPERED BY POLICE.
--- NOTE | 2017-04-16 14:38 | ED GENERAL ADULT ---
See Addendum History of Present Illness General Chief Complaint: ETOH/Drug Related Complaint Stated Complaint: TOOK TO MUCH XANAX Source: patient, EMS Exam Limitations: intoxication Allergies Coded Allergies: diphenhydramine (From BENADRYL) (HYPER PER PT SAYS IT FEELS LIKE BEGINNING OF A PANIC ATTACK 03/16/17) quetiapine (HYPERACTIVE, PER PT STATES HE FELT SUICIDAL 03/16/17) trazodone (WOKE UP FEELING DRUNK, HAD TO TAKE TO MUCH FOR SLEEP HELP 03/16/17) Triage Note: 56 YEAR OLD MALE TO ER VIA AMBULANCE AFTER EMS STATES THAT THEY WERE CALLED FOR A WELFARE CHECK , ON THERE ARRIVAL PT AWAKE AND ALERT TO PERSON AND PLACE , BUT NOTED TO BE VERY DROWSY. ON ARRIVAL TO ER PT AWAKE AND NOTED WITH SLURRED SPEECH,. DENIES ETOH/SI/HI. STATES THAT HER TOOK EXTRA XANAX AND OXYCODONE TO KILL HIS PAIN . PER PT HE STATES THAT IT WAS TO KILLL HIS PHYSICAL AND MENTAL PAIN. PT PAPERED BY POLICE. Triage Nurses Notes Reviewed? yes Onset: Abrupt Duration: hour(s):, day(s): (1-2), constant, continues in ED Timing: single episode today Injury Environment: home Severity: mild, moderate Severity Numbers: 7 No Modifying Factors: none Associated Symptoms: back pain HPI: 56-year-old male the history of chronic back pain, hep C, anxiety brought in by ambulance for evaluation of possible Xanax overdose. EMS reports the police were called the patient's house for a welfare check after the patient had not been seen for several days. When they arrived patient was very lethargic and admitted to taking an overdose of Xanax. Patient states that he took the Xanax and oxycodone because his back was hurting. Patient had locked himself out of his house the day before and had to climb in a window causing the back pain. He denies any trauma to his back. Pain is located on both sides of his lower back and does not radiate. It is worse with any type of movement. He rates pain as 7 out of 10. His pain was not improved with Xanax or oxycodone. He denies any alcohol or illicit substance abuse. Denies any homicidal or suicidal ideation. He is unsure of exactly how much Xanax he took. He denies any shortness of breath, vomiting, chest pain numbness, tingling, bowel or bladder dysfunction. (SUSU ESPINOZA,ELIECER) Vital Signs & Intake/Output Vital Signs & Intake/Output Vital Signs Date Time Temp Pulse Resp B/P B/P Pulse O2 O2 Flow FiO2 Mean Ox Delivery Rate 04/18 1552 56 160/97 100 Room Air 04/18 1517 171/101 04/18 1443 98.5 101 18 171/101 99 Room Air 04/18 1231 Room Air 04/18 1150 97.4 98 18 180/97 04/18 1148 97.4 98 18 180/97 93 Room Air 04/18 0911 140/98 04/18 0753 98.1 65 20 167/102 97 Room Air 04/18 0752 98.1 65 20 167/102 04/18 0649 96.8 156/95 ED Intake and Output 04/18 0000 04/17 1200 Intake Total 610 Output Total 150 Balance 460 Intake, Oral 610 Output, Urine 150 Reconcile Medications Alprazolam 2 MG TABLET 1 TAB PO TIDPRN ANXIETY (Reported) Bupropion HCl (Bupropion HCl Sr) 100 MG TABLET.ER 1 TAB PO QAM MENTAL HEALTH (Reported) Carisoprodol (SOMA) 350 MG TABLET 1 TAB PO BIDP PRN MUSCLE SPASMS (Reported) Divalproex Sodium 500 MG TABLET.DR 500 MG PO 0800,1999 mood stabilization Oxycodone HCl/Acetaminophen (Oxycodone-Acetaminophen 5-325) 5 MG-325 MG TABLET 1 TAB PO TIDPRN PRN PAIN (Reported) (KAYLIN FUCHS,MARIANELA Johnson) Past History Travel History Traveled to [place] past 21 day No Medical History Any Pertinent Medical History? see below for history Neurological: migraine, seizure (also has some gait problems), SCIATICA TBI EENT: EYE SURGERY Cardiovascular: NONE Respiratory: NONE Gastrointestinal: pancreatitis Hepatic: hepatitis C Renal: NONE Musculoskeletal: chronic back pain, disk herniation, falls, fracture, BROKEN RIGHT FOOT hx skull and jaw fx's Psychiatric: anxiety, bipolar disease, chronic pain disorder, depression, opioid dependence (opioid pain management), substance abuse (hx alcohol and drug abuse) , PANIC ATTACKS benzodiazepine abuse opiate pain management Endocrine: NONE Blood Disorders: NONE Cancer(s): NONE 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 History of MRSA: No History of VRE: No History of CDIFF: No Surgical History Surgical History: NECK, SKULL Psychosocial History Who do you live with Patient/Self Services at Home None What is your primary language Telugu Tobacco Use: Current Daily Use Daily Tobacco Use Amount/Type: => 5 Cigarettes daily ETOH Use: denies use Illicit Drug Use: benzodiazepines Family History Family History, If Any: No Known Family History. Hx Contributory? No (ELIECER CRISTOBAL PA-C) Review of Systems Review of Systems Constitutional: Reports: see HPI. EENTM: Reports: no symptoms. Respiratory: Reports: no symptoms. Cardiovascular: Reports: no symptoms. GI: Reports: no symptoms. Genitourinary: Reports: no symptoms. Musculoskeletal: Reports: see HPI, back pain, joint pain, muscle pain. Skin: Reports: no symptoms. Neurological/Psychological: Reports: see HPI, anxiety. Hematologic/Endocrine: Reports: no symptoms. Immunologic/Allergic: Reports: no symptoms. All Other Systems: Reviewed and Negative (SUSU ESPINOZA,ELIECER) Physical Exam Physical Exam General Appearance: well developed/nourished, alert, awake, anxious, mild distress, intoxicated Head: atraumatic, normal appearance Eyes: Bilateral: normal appearance, PERRL, EOMI. Ears, Nose, Throat: normal pharynx, normal ENT inspection, hearing grossly normal Neck: normal inspection, supple, full range of motion Respiratory: normal breath sounds, chest non-tender, no respiratory distress Cardiovascular: regular rate/rhythm, normal peripheral pulses Peripheral Pulses: 2+ dorsalis pedis (R), 2+ dorsalis pedis (L) Gastrointestinal: normal bowel sounds, soft, non-tender, no organomegaly Back: normal inspection, normal range of motion, muscle spasm (LUMBAR PARASPINOUS), no vertebral tenderness Extremities: normal inspection, normal capillary refill, normal range of motion, no edema Neurologic/Psych: no motor/sensory deficits, awake, alert, oriented x 3, normal gait, normal mood/affect Reflexes: 2+: knee (R), knee (L). Skin: intact, normal color, warm/dry Lymphatic: no anterior cervical chris Core Measures ACS in differential dx? No CVA/TIA Diagnosis: No Severe Sepsis Present: No Septic Shock Present: No (SUSU ESPINOZA,ELIECER) Progress Differential Diagnoses I considered the following diagnoses in my evaluation of the patient: [ Benzodiazepine intoxication, alcohol intoxication, or joint imbalance, CVA, suicidal ideation] Initial ED EKG: none Hand-Off Endorsed To: UZIEL BUCK Endorsed Time: 1914 Pending: other (CRISIS) (SUSU ESPINOAZ,ELIECER) Differential Diagnoses I considered the following diagnoses in my evaluation of the patient: Comments: 04/16/2017 9:13:55 PM I spoke with the patient and told him that he is in kidney failure secondary to rhabdomyolysis. He does not want to stay here in the hospital. He is still slurring his words. He made a comment to the nurse that she just wants to . Patient is going to be placed in the PEC. Held to morning. Reevaluation by crisis. Patient will be receiving IV fluids and repeat creatinine and CK in the morning. Patient is going to be placed in ED observation. dr dominguez will be resuming patients care. (UZIEL BUCK) Differential Diagnoses Plan of Care: Orders Procedure Date/time Status Discharge Patient 04/18 1113 Active Continuous Observation Monitor 04/18 0224 Active THYROID STIMULATING HORMONE 04/17 0702 Complete THYROXINE 04/17 0702 Complete LIPID PANEL 04/17 0702 Complete FREE T4 04/17 0702 Complete FOLIC ACID 04/17 0702 Complete DEPAKOTE LEVEL 04/17 0702 Complete VITAMIN B12 04/17 0702 Complete Current Medications Sig/Phuong Start time Last Medication Dose Stop Time Status Admin Ibuprofen 600 MG Q6 04/17 1200 AC 04/18 (Motrin) 1229 Clonazepam 2 MG BID 04/17 1138 AC 04/18 (Klonopin 1MG Tab) 04/24 1137 0904 Divalproex Sodium 500 MG BID 04/17 1138 AC 04/18 (Depakote) 0904 Escitalopram Oxalate 10 MG DAILY 04/17 1138 AC 04/18 (Lexapro) 0904 Bupropion HCl 100 MG QAM 04/17 1137 AC 04/18 (Wellbutrin SR) 0904 Basic blood work and U tox ordered. Patient will be monitored in the emergency department. 3:18 PM: Blood work is showing an elevated creatinine of 2.2 and elevated BUN of 36. This is a significant increase from previous. Patient will be given 2 L of normal saline and will have this rechecked. Patient will also have a crisis consult in the ED. (ELIECER CRISTOBAL PA-C) Hand-Off Endorsed To: MALLORY CUNHA MD Endorsed Time: 0700 Pending: other (KAYLIN FUCHS,MARIANELA Johnson) Comments: 04/17/2017 7:22:47 AM patient signed out to me by Dr. 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 04/17/2017 9:29:55 AM pt is awake and alert. no c/o at present other than constipation. He has urinated at least twice this morning and I've been told by observers that the urine is yellow in color. his CK levels have improved substantially. Awaiting crisis evaluation. Patient understands. 04/17/2017 11:41:29 AM patient's case to be reviewed with the on-call psychiatrist. Very likely patient will be placed according to crisis. (MALLORY CUNHA MD) Hand-Off Endorsed To: HELEN ROBERTS MD Endorsed Time: 0700 Pending: consult (CRISIS REEVALUATION) (RACHID FERNANDES MD) Departure Departure Disposition: STILL A PATIENT Condition: Stable Referrals: ISABELLE MORA MD (PCP/Family) Departure Forms: Customer Survey General Discharge Information (ELIECER CRISTOBAL PA-C) Departure Clinical Impression Primary Impression: Benzodiazepine intoxication Secondary Impressions: Acute kidney failure, Rhabdomyolysis Observation Note Spoke With: MARIANELA DOMINGUEZ MD Physician Advisor Notified: MALLORY NAJERA DO Place Patient In: ED Observation Rationale for Observation: My rational for observation is as follows . Patient is impaired clinically at the moment. He will require IV fluids overnight. He will require reevaluation by crisis. Patient is being placed on the PEC. Patient signout to Dr. Dominguez. His CK is elevated. He will require repeat blood work in the morning. Patient is not allowed to sign out AMA due to his intoxication at the moment. (UZIEL BUCK) Departure Comments 04/17/17, 5:33am.... pt declines follow up blood work 04/17/17, 7am... pt signed out to dr. cunha, 04/17/17, 7am PA/UNDERGROUND HEAVY EQUIPMENT OPERATOR Co-Sign Statement Statement: ED Attending supervision documentation- [X] I saw and evaluated the patient. I have also reviewed all the pertinent lab results and diagnostic results. I agree with the findings and the plan of care as documented in the PA's/UNDERGROUND HEAVY EQUIPMENT OPERATOR's documentation. [] I have reviewed the ED Record and agree with the PA's/UNDERGROUND HEAVY EQUIPMENT OPERATOR's documentation. [] Additions or exceptions (if any) to the PAs/UNDERGROUND HEAVY EQUIPMENT OPERATOR's note and plan are summarized below: [] (MARIANELA DOMINGUEZ MD) Psych Admission Note Psychiatric Admission: I have seen and evaluated RIVER GONGORA. I have also reviewed all the pertinent lab results and diagnostic results. RIVER GONGORA will be admitted to our inpatient Psychiatric unit for treatment and care. PA/UNDERGROUND HEAVY EQUIPMENT OPERATOR Co-Sign Statement Statement: ED Attending supervision documentation- x I saw and evaluated the patient. I have also reviewed all the pertinent lab results and diagnostic results. I agree with the findings and the plan of care as documented in the PA's/UNDERGROUND HEAVY EQUIPMENT OPERATOR's documentation. [] I have reviewed the ED Record and agree with the PA's/UNDERGROUND HEAVY EQUIPMENT OPERATOR's documentation. [] Additions or exceptions (if any) to the PAs/UNDERGROUND HEAVY EQUIPMENT OPERATOR's note and plan are summarized below: [] (HELEN ROBERTS MD) Critical Care Note Critical Care Note Critical Care Time: non-applicable (SUSU ESPINOZA,ELIECER) ED Attending Observation Initial Observation Note: I have seen and personally examined RIVER GONGORA on 04/17/17 at 0533. I agree with the current emergency department documentation. The disposition (admission or discharge) is uncertain at this time, he needs a period of observation for the following reason(s): The ED Nurse caring for this patient has been personally informed as to what the patient is being observed for. Observation Re-Evaluation: I have reevaluated RIVER GONGORA on 04/17/17 at 0533. The physical findings that support the continued need to observe this patient include .pt ambulated well to the ED with assistance without problem. he declines blood repeat blood work. (KAYLIN FUCHS,MARIANELA Johnson) Observation Re-Evaluation: I have reevaluated RIVER GONGORA on 04/17/17 at 1946. The physical findings that support the continued need to observe this patient include [PATIENT RESTING COMFORTABLY. CRISIS ATTEMPTING TO FIND PLACEMENT FOR PATIENT]. (DENA FUCHS,RACHID) The physical findings that support the continued need to observe this patient include [PATIENT RESTING COMFORTABLY. CRISIS ATTEMPTING TO FIND PLACEMENT FOR PATIENT]. (DENA FUCHS,RACHID) observation for the following reason(s): The ED Nurse caring for this patient has been personally informed as to what the patient is being observed for. Observation Re-Evaluation: I have reevaluated R[place] GONG[place] on 04/17/17 at 0533. The physical findings that support the continued need to observe this patient include .pt ambulated well to the ED with assistance without problem. he declines blood repeat blood work. (KAYLIN FUCHS,MARIANELA Johnson) My rational for observation is as follows . Patient is impaired clinically at the moment. He will require IV fluids overnight. He will require reevaluation by crisis. Patient is being placed on the PEC. Patient signout to Dr. Dominguez. His CK is elevated. He will require repeat blood work in the morning. Patient is not allowed to sign out AMA due to his intoxication at the moment. (UZIEL BUCK) Departure Comments 04/17/17, 5:33am.... pt declines follow up blood work 04/17/17, 7am... pt signed out to dr. cunha, 04/17/17, 7am (KAYLIN FUCHS,MARIANELA Johnson) Critical Care Note Critical Care Note Critical Care Time: non-applicable (SUSU ESPINOZA,ELIECER) ED Attending Observation Initial Observation Note: I have seen and personally examined R[place] GONG[place]A on 04/17/17 at 0533. I agree with the current emergency department documentation. The disposition (admission or discharge) is uncertain at this time, he needs a period of observation for the following reason(s): The ED Nurse caring for this patient has been personally informed as to what the patient is being observed for. Observation Re-Evaluation: I have reevaluated R[place] G[place] on 04/17/17 at 0533. The physical findings that support the continued need to observe this patient include .pt ambulated well to the ED with assistance without problem. he declines blood repeat blood work. (KAYLIN FUCHS,MARIANELA Johnsno)
[2017-04-16 14:39] LABS: ABSOLUTE BASOPHIL COUNT 0 /CUMM (0.0-0.2); ABSOLUTE EOSINOPHIL COUNT 0.1 /CUMM (0.0-0.7); ABSOLUTE GRANULOCYTE CT 7.7 /CUMM (1.4-6.5); ABSOLUTE LYMPH COUNT 2.4 /CUMM (1.2-3.4); ABSOLUTE MONOCYTE COUNT 1.2 /CUMM (0.10-0.60); BASOPHIL % 0.3 % (0.0-2.0); EOSINOPHIL % 1.1 % (0-5); GRANULOCYTE % 66.9 % (42.2-75.2); MEAN CORPUSCULAR HGB 30.1 PG (27.0-31.0); MEAN CORPUSCULAR HGB CONC 33.3 G/DL (33.0-37.0); MEAN CORPUSCULAR VOLUME 90.4 FL (80.0-94.0); MEAN PLATELET VOLUME 9.5 FL (7.4-10.4); PLATELET COUNT 154 /CUMM (130-400); RBC DISTRIBUTION WIDTH 15.4 % (11.5-14.5); RED BLOOD CELL CT 4.21 /CUMM (4.70-6.10); WHITE BLOOD CELL COUNT 11.5 /CUMM (4.8-10.8)
--- NOTE | 2017-04-16 14:51 | NUR ---
IV ESTABLISHED TO Aylin MARTINS #[id number].
--- NOTE | 2017-04-16 15:11 | NUR ---
UNABLE TO VERIFY HOME MEDS DUE TO CURRENT CIRCUMSTANCES
--- NOTE | 2017-04-16 15:34 | NUR ---
PT ASKING THIS MST FOR HIS OXYCODONE AND SOMA. INFORMED PT OF NEED TO STAY IN STRETCHER AND REDIRECTED AT THIS TIME.
--- NOTE | 2017-04-16 15:56 | NUR ---
SITTER AT BEDSIDE REDIRECTING PATIENT TO REMAIN IN BED DUE TO IMPAIRED COGNITION AND ATTEMPTS TO UNSAFELY AMBULATE
--- NOTE | 2017-04-16 17:50 | NUR ---
PA BLACK TO BEDSIDE TO UPDATE PATIENT THAT HE IS HAVING FLUIDS IV TO IMPROVE KIDNEY FUNCTION AND TO ENABLE CRISIS TO EVALUATE HIM TO DETERMINE PLAN. PT STATES "IM NOT GOING DOWNSTAIRS ILL LIE ABOUT BEING SUICIDAL". PT ARGUMENTATIVE AMD REMAINS WITH SLURRED SPEECH AND SEDATED
--- NOTE | 2017-04-16 18:45 | NUR ---
PT ATTEMPTS UNSAFE AMBULATION TRYING TO GET OUT AND CONSUMED WITH CONCERN OVER LOCATION OF CREDIT CARD. PT REASSURED IT IS LOCKED IN SAFE AND LISTED ON FORM. PT REPEATEDLY ASKING ABOUT WHAT COLOR IT IS. PT REDIRECTED AND LIMITS SET. INFORMED THAT IF HE CONTINUES TO UNSAFELY AMBULATE AND THREATEN STAFF PHYSICALLY THAT THERE ARE CONSEQUENCE
[2017-04-16 18:55] VITALS: BP 110/70
--- NOTE | 2017-04-16 19:11 | NUR ---
ASSUMED CARE OF PT FROM PETEY BARBER. PT SHOUTING FOR FOOD. REMINDED HE HAD DINNER. LIMITS SET, SITTER PRESENT.
[2017-04-16 20:41] VITALS: BP 112/69
--- NOTE | 2017-04-16 20:46 | NUR ---
SKY NIEVES AT BEDSIDE TO REEVAL PT AND DISCUSS POC.
--- NOTE | 2017-04-16 20:49 | NUR ---
PT REMINDED HE IS TO REMAIN IN ER UNTIL EVALUATED BY CRISIS.
--- NOTE | 2017-04-16 21:12 | NUR ---
NS BOLUS INFUSING AT THIS TIME PER EMAR. PT STATES "I DON'T WANT ANYTHING THAT IS GOING TO HELP ME, I'D RATHER ." AWARE OF STATEMENT, GURVINDER REMAINS PRESENT FOR SAFETY. WILL CTM.
--- NOTE | 2017-04-16 22:40 | NUR ---
4TH LITER NS INFUSING AT THIS TIME
[2017-04-16 22:42] VITALS: BP 115/76
--- NOTE | 2017-04-16 22:44 | NUR ---
TRANSPORT HERE TO BRING PT TO OR.
--- NOTE | 2017-04-16 22:45 | NUR ---
PT PLACED ON PEC, WILL BE ED OBS.
--- NOTE | 2017-04-16 23:08 | NUR ---
PT REMOVED IV TO LEFT HAND. PRESSURE APPLIED, BLEEDING CONTROLLED AT THIS TIME. RN DINA AWARE. PT STATES "YOU CAN'T KEEP ME HERE AGAINST MY WILL." PT EDUCATED ON POC. SITTER CONTINUES AT BEDSIDE FOR SAFETY.
--- NOTE | 2017-04-16 23:41 | NUR ---
IV ACCESS REESTABLISHED. PT COOPERATIVE WITH THIS RN AT THIS TIME.
--- NOTE | 2017-04-17 00:52 | NUR ---
PT SHOUTING AT THIS RN FOR MOTRIN. EXPLAINED TO PT HE CANNOT HAVE MOTRIN D/T KIDNEY FUNCTION. MEDICATED WITH TYLENOL PER EMAR AND PT IN AGREEMENT.
[2017-04-17 01:01] VITALS: BP 120/73
--- NOTE | 2017-04-17 01:03 | NUR ---
PT CONTINUOUSLY SHOUTING ASKING MULTIPLE QUESTIONS ABOUT WHY HES HERE AND WHY HE HAS TO HAVE IV. QUESTIONS ANSWERED FOR PT. LIMITS SET THAT HE IS NOT TO YELL. PT STATING "I JUST WANT TO ." MD AWARE OF STATEMENT. GURVINDER REMAINS AT BEDSIDE FOR SAFETY AND CLOSE MONITORING. CIWA SCORE OF 4 D/T AGITATION CURRENTLY.
--- NOTE | 2017-04-17 01:36 | NUR ---
PT NOW SLEEPING, REGULAR RR NOTED. SITTER REMAINS AT BEDSIDE.
[2017-04-17 03:11] VITALS: BP 134/76
--- NOTE | 2017-04-17 03:31 | NUR ---
PT REFUSING TO USE URINAL, STATING HE WILL "PISS ALL OVER THE ROOM." ASSITED TO BATHROOM WITH ASSIST OF 3. DID NOT VOID. ASSISTED BACK TO BED. SITTER REMAINS PRESENT.
--- NOTE | 2017-04-17 04:14 | NUR ---
PT NOW SLEEPING WITH REGULAR RR NOTED . NS CONTINUES TO INFUSE.
--- NOTE | 2017-04-17 05:19 | NUR ---
REPEAT BLOOD WORK ORDERED FOR 0500. MST ATTEMPT X1 WITHOUT SUCCESS AND THIS RN ATTEMPT X1 WITHOUT SUCCESS. RN JESSICA AT BEDSIDE TO TRY AND OBTAIN BLOOD WORK. PT REFUSING BLOOD WORK NOW. AWARE.
--- NOTE | 2017-04-17 05:44 | NUR ---
PT REQUESTING TO SIT IN CHAIR, ASSIST OF 2 TO CHAIR. IV FLUIDS CONTINUE TO INFUSE.
--- NOTE | 2017-04-17 06:40 | NUR ---
LE IN TO REEVAL PT AND EXPLAIN THE NEED FOR BLOOD WORK. PT NOW LETTING THIS RN DRAW BLOOD. PT DIFFICULT STICK, BLOOD WORK OBTAINED (1SST) AND SENT TO LAB.
--- NOTE | 2017-04-17 07:02 | NUR ---
ASSUMED CARE OF PT WHO IS AWAKE, SPEAKING WITH TECH POPPY WITH SLURRED SPEECH. PT TO BE REDRAWN D/T SST HEMOLYZED. POPPY MST AT BEDSIDE ATTEMPTING. PT GIVEN BREAKFAST TRAY. SITTER IN ATTENDENCE. WILL CONTINUE TO MONITOR
--- NOTE | 2017-04-17 07:31 | NUR ---
PT AMBULATORY TO BR WITH ASSIST OF ONE AFTER REFUSING TO USE URINAL. PT UNSTEADY ON FEET
--- NOTE | 2017-04-17 09:17 | NUR ---
PT GIVEN OREO COOKIES AND APPLESAUCE FOR SNACK
[2017-04-17 09:20] VITALS: BP 140/70
--- NOTE | 2017-04-17 09:25 | NUR ---
DR MILLER AT BEDSIDE FOR REEVALUATION
--- NOTE | 2017-04-17 09:50 | NUR ---
SCRAP BURNER YANIRA AT BEDSIDE FOR EVALUATION
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
--- NOTE | 2017-04-17 11:05 | NUR ---
Pt requires inpt psych tx and remains on a PEC. There are no available beds on [facility], so a bed search is being done.
--- NOTE | 2017-04-17 11:32 | NUR ---
DR. MILLER AWARE PT WANTS PAIN MEDS.
--- NOTE | 2017-04-17 12:05 | NUR ---
Per director of Psychiaty Nelly Hussein, pt may not be discharged, and she must be notified if discharge is considered.
--- NOTE | 2017-04-17 13:31 | NUR ---
AWAITING DR. MILLER TO TELL PT HE MUST STAY. PT BECOMING MORE AGITATED NO ONE IS "LETTING HIM LEAVE"
--- NOTE | 2017-04-17 13:43 | NUR ---
PT AWARE HE MUST STAY AND BECAME MORE BELIGERANT SECURITY AT BEDSIDE, DR MILLER REPORTS HE WILL FURTHER DISCUSS WITH CRISIS.
--- NOTE | 2017-04-17 13:51 | NUR ---
PT AGIGATED AT THIS TIME WILL REVITAL WHEN PT APPEARS CALM RR NOTED.
--- NOTE | 2017-04-17 13:54 | NUR ---
YANIRA AT BEDSIDE.
--- NOTE | 2017-04-17 14:50 | NUR ---
clinical faxed to [facility], Farheen Zacarias, Adam Ramos, Des ,and Bri
--- NOTE | 2017-04-17 14:51 | NUR ---
[facility] declined pt
--- NOTE | 2017-04-17 15:23 | NUR ---
REPORT RECEIVED. CARE OF PT ASSUMED
--- NOTE | 2017-04-17 15:45 | NUR ---
PT SEEN IN ROOM, CALM AND COOPERATIVE. TOOK KLONIPIN WITHOUT DIFFICULTY. UNHAPPY ABOUT REMAINING IN ED, BUT ACCEPTING OF CURRENT SITUATION. OBSERVATION MONITOR IN PLACE
--- NOTE | 2017-04-17 16:05 | NUR ---
PT TAKEN TO IR.
--- NOTE | 2017-04-17 18:36 | NUR ---
PT ASKING FOR XANAX
--- NOTE | 2017-04-17 19:15 | NUR ---
PT REQUESTING ACCESS TO HIS CELL PHONE FOR HIS GIRLFRIEND'S PHONE NUMBER. UPON REVIEWING PT'S INTAKE BELONGINGS, PT WAS INFORMED THAT HE DID NOT COME IN WITH A PHONE.
--- NOTE | 2017-04-17 19:25 | NUR ---
Crisis bed search will resume in the morning. [facility], [facility], [facility], [facility], [place], and [facility] all report they have no bed availability tonight. Patient is agitated about need to stay on PEC and await inpatient admission. This contract technical writer informed patient about hold protocol. Patient requested Oxycodone and Xanax medication - RN advised this would not be possible due to recent overdose per MD. Patient requested his cellphone - RN advised he did not have one on his person on admission.
--- NOTE | 2017-04-17 21:25 | NUR ---
PT REQUESTING TO SEE MD OR HAY RAKE OPERATOR. STATES HE WAS NOT GIVEN DINNER. PER OBSERVATION STAFF, PT WAS BROUGHT FINGER FOOD TRAY AT APPROXIMATELY 4/430 AND CONSUMED 100%. WHEN HE STATED HE WAS HUNGRY AT THIS TIME, HE WAS BROUGHT A SELECTION OF COOKIES, CRACKERS AND JUICE. DR FERNANDES INFORMED OF SITUATION
--- NOTE | 2017-04-17 22:27 | NUR ---
PT AGITATED WITH MULTIPLE COMPLAINTS. ASKING TO SEE MD AND NURSE BECAUSE HE WANTS MEDICATION. STATES HE IS HUNGRY. PT GIVEN HAMBURGER TO EAT. INFORMED PT THAT HE IS DUE FOR HS MEDICATIONS AND NURSE MARIO WILL BRING THEM IN SHORTLY
--- NOTE | 2017-04-17 22:29 | NUR ---
PT GIVEN 2200 MEDICATIONS ORDERED. VISIBLY AGITATED WITH MULTIPLE COMPLAINTS (THE BURGER IS DRY, THEY HAVE NO REASON TO KEEP ME HERE, THE EVENT PRODUCER HAD NO RIGHT TO COME TO MY HOUSE, THE [facility] AND [facility] WHERE I LIVE NEED TO MIND THEIR OWN BUSINESS). PT MADE STATEMENT TO "KILL" GURVINDER VALADEZ IF HE SEES HIM OUTSIDE OF THE HOSPITAL ENVIRONMENT. SAID GURVINDER STATES HE DOES NOT FEEL THREATENED FOR HIS SAFETY. HAM BONERPETEY MEJIA.
--- NOTE | 2017-04-17 23:33 | NUR ---
REPORT RECEIVED FROM MARIO ANGELO.
--- NOTE | 2017-04-18 02:02 | NUR ---
PT REQUESTING MEDICATION FOR SLEEP, DR. FERNANDES AWARE
--- NOTE | 2017-04-18 03:53 | NUR ---
PT MED WITH 1 MG PO KLONOPIN
--- NOTE | 2017-04-18 06:07 | NUR ---
PT MED WITH 0600 MOTRIN ORDERED. TOLERATED WELL. SITTING COMFORTABLY IN CHAIR
--- NOTE | 2017-04-18 06:59 | NUR ---
BREAKFAST TRAY PROVIDED
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
[2017-04-18 07:52] VITALS: BP 167/102
--- NOTE | 2017-04-18 09:34 | NUR ---
Lang just reported that pt expressed that he is currently looking for something to hang himself with.
--- NOTE | 2017-04-18 11:25 | NUR ---
ASSUMED CARE OF THIS PT FROM PETEY STEPHENS. PT SEATED ON STRETCHER IN HALLWAY WITH SITTER AT BEDSIDE. PT IS ANTICIPATING TRANSFER TO [facility] [place]. PT COMPLAINING OF PAIN AND REQUESTING MEDICATION.
[2017-04-18 11:50] VITALS: BP 180/97
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
--- NOTE | 2017-04-18 12:55 | NUR ---
MED REC COMPLETED WITH PATIENT. PT REPORTS HE IS IN PAIN AND IS REQUESTING SOMA, OXYCODONE AND XANAX AT THIS TIME. SITTER AT BEDSIDE.
[2017-04-18] MEDS ORDERED: DEPAKOTE SPRIN125 M1 PO (13:13)
[2017-04-18] MEDS ORDERED: ALPRAZOLAM2 M2 PO (13:14)
--- NOTE | 2017-04-18 13:15 | NUR ---
NOTE LEFT FOR SKY NIEVES TO ORDER DAILY MEDS FOR PATIENT.
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
--- NOTE | 2017-04-18 14:30 | NUR ---
PT ASKING THIS NURSE CONSTANTLY WHEN HIS MEDICATIONS WOULD BE READY. I EXPLAINED THAT I HAVE LET THE PA KNOW HE SHOULD ORDER THE HOME MEDS.
--- NOTE | 2017-04-18 15:17 | NUR ---
PT MEDICATED WITH LOPRESSOR 50MG AND XANAX 2MG PO. PT ASKING "WHY CAN'T HE ORDER MY SOMA AND OXYCODONE?" SITTER AT BEDSIDE. WILL RECHECK BP AT 1545 AND SEND PT TO CPS.
[2017-04-18 15:52] VITALS: BP 160/97
[2017-04-19] MEDS ORDERED: DIVALPROEX SOD500 M2 PO (14:28)
== END 2017-04-18 15:45 | disposition still patient (30) ==
LOC: ERH 14:13 → ERHI 22:41 → EDBEDREQ 22:55 → ENRESERV 23:29 → ERHI 04-18 15:45 → ENTRNSPT 04-18 15:54 → CMPTRNSPT 04-18 16:16 → ENRESERV 04-18 20:23 → CANRESERV 04-18 20:23
PROVIDERS: Physician Assistant Medical; ADMIT Pediatrics
DX: T42.4X1A Poisoning by benzodiazepines, accidental (unintentional), initial encounter (principal); T40.2X1A Poisoning by other opioids, accidental (unintentional), initial encounter; F17.200 Nicotine dependence, unspecified, uncomplicated; F41.9 Anxiety disorder, unspecified; F31.9 Bipolar disorder, unspecified; G89.29 Other chronic pain; F32.9 Major depressive disorder, single episode, unspecified; G43.909 Migraine, unspecified, not intractable, without status migrainosus; B18.2 Chronic viral hepatitis C; F11.20 Opioid dependence, uncomplicated
CPT/HCPCS: 80307; 81001; 93005; 93010; 96360; 96361; G0463; G0480

== ENCOUNTER 2017-04-18 11:19 | Inpatient (IN) | payer OTHER, MEDICARE ==
[~2017-04-18] VITALS: Ht 175.3 cm; Wt 94.6 kg
[2017-04-18] MEDS ORDERED: DEPAKOTE SPRIN125 M1 PO (13:13)
[2017-04-18] MEDS ORDERED: ALPRAZOLAM2 M2 PO (13:14)
[2017-04-18 16:41] VITALS: BP 126/76
[2017-04-18 19:47] VITALS: BP 130/78
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
--- NOTE | 2017-04-18 21:11 | Admission Certification ---
Admission Certification Certification Statement - As attending physician, I certify that at the time of - admission, based on clinical presentation, severity of - symptoms, need for further diagnostic testing and - therapeutic interventions, and risk of adverse outcomes - without in-hospital treatment, in my clinical assessment, - this patient requires an acute hospital stay for a minimum - of two nights or longer. I have also considered psychsocial - factors such as support system, advanced age, financial - issues, cognitive issues, and failed out-patient treatments, - past re-admission history, safety of patient, and lack of - compliance as applicable. Specific rationale supporting this admission is: Benzodiazepine overdose, depression
--- NOTE | 2017-04-18 23:23 | NUR ---
Patient became lethargic and unable to recall hospital he was at approx 2145 when he signed in voluntarily. Patient reoriented to location and hospital admission with success.
--- NOTE | 2017-04-19 07:12 | NUR ---
PT RETURNS. HE WAS ADMITTED ON A PEC FOR A SUICIDE ATTEMPT WITH AN UNKNOWN QUANTITY OF PILLS. PT MADE SEVERAL SUICIDAL STATEMENTS. PT MINIMALIZING SUICIDAL BEHAVIOR. UPON ARRIVAL TO THE UNIT, PT SIGNED IN A VOLUNTARY PT, AND THEN SIGNED A 3 DAY PAPER. PT CONTINUES TO BE MED-FOCUSED, WITH LITTLE INSIGHT. PT AM LABS WNL.
[2017-04-19 07:43] VITALS: BP 138/74
[2017-04-19 08:28] VITALS: BP 138/74
--- NOTE | 2017-04-19 11:57 | NUR ---
PT IS OUT IN THE COMMUNITY, MINIMAL INTERACTION WITH STAFF AND PEERS. PT HAS AN IRRITABLE EDGE TO HIS MOOD AND WILL OFTEN TALK ABOUT OTHER PTS IN A NEGATIVE WAY. PT NEEDS TO BE REMINDED TO KEEP COMMENTS TO SELF. PT ATTENDS PART OF GROUPS BUT LEAVES EARLY. PT DENIES SI THOUGHTS
[2017-04-19 12:10] VITALS: BP 123/71
[2017-04-19 12:11] VITALS: BP 123/71
[2017-04-19] MEDS ORDERED: DIVALPROEX SOD500 M2 PO (14:28)
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
--- NOTE | 2017-04-19 15:19 | NUR ---
PT IS [place] [facility] [place] DENIES ANY THOUGHTS OF SUICIDE OR SELF HARM AND HE IS NOT INTERESTED IN BEING IN TREATMENT AT THIS TIME. HE IS MED SEEKING AND IRRITABLE. HE WILL RETURN TO HIS OWN MD FOR FOLLOW UP. HE IS GIVEN EDUCATION R/T MANAGING DEPRESSION AND ON SUICIDE PREVENTION
--- NOTE | 2017-04-19 16:46 | DISCHARGE SUMMARY REPORT-PSYCH ---
Visit Information Visit Dates/Diagnosis' Admission Date: 04/18/17 Discharge Date: 04/19/17 Reason for Admission: " Psy Discharge Primary Diag: Unspecified Bipolar Disorder; MRE Depressed Hospital Course Course Allergies: Coded Allergies: diphenhydramine (From BENADRYL) (HYPER PER PT SAYS IT FEELS LIKE BEGINNING OF A PANIC ATTACK 03/16/17) quetiapine (HYPERACTIVE, PER PT STATES HE FELT SUICIDAL 03/16/17) trazodone (WOKE UP FEELING DRUNK, HAD TO TAKE TO MUCH FOR SLEEP HELP 03/16/17) Discharge HBIPS - Tobacco Use Treatment Offered - EtOH/Drug Use D/O Treatment Offered Metabolic Screening - Screen if on a Neuroleptic Medication - Metabolic screening should include: - Blood Pressure, BMI, Glucose or Hgb A1c, & a - Lipid profile from within the past 365 days.
== END 2017-04-19 15:35 | DRG 885 ==
LOC: CP SOUTH 16:10 → UNDOADMIN 16:14 → CP SOUTH 16:14 → ENPENDDIS 04-19 16:00
PROVIDERS: ADMIT Psychiatry & Neurology Addiction Medicine
DX: F31.9 Bipolar disorder, unspecified (principal)
CPT/HCPCS: 36415; 82436